=== PATIENT | female | born 1955 | race Caucasian/White ===

== ENCOUNTER → 2017-09-21 | Outpatient (CLI) | payer OTHER | END | disposition home or self-care (01) | LOC: CFH 12:38 → EDSTATUS 13:00 | PROVIDERS: ATTEND Nurse Practitioner | DX: Z13.820 Encounter for screening for osteoporosis (principal); Z12.2 Encounter for screening for malignant neoplasm of respiratory organs; M85.88 Other specified disorders of bone density and structure, other site; J47.9 Bronchiectasis, uncomplicated; N95.8 Other specified menopausal and perimenopausal disorders; Z87.891 Personal history of nicotine dependence | CPT/HCPCS: 77080; G0297 ==

== ENCOUNTER 2017-12-19 00:20 | Emergency (ER) | payer OTHER ==
[~2017-12-19] VITALS: Ht 154.9 cm; Wt 66.1 kg
[2017-12-19] MEDS ORDERED: ONDANSETRON 2MG/ML, 2ML ONE (01:35)
[2017-12-19] MEDS ORDERED: MORPHINE SULFATE 4 MG/ML, 1ML ONE (01:35)
[2017-12-19 01:57] LABS: MICROSCOPIC AUTO
[2017-12-19] MEDS ORDERED: ONDANSETRON 2MG/ML, 2ML IVPush ONE (02:00)
[2017-12-19] MEDS ORDERED: MORPHINE SULFATE 4 MG/ML, 1ML IVPush PRN (02:00)
[2017-12-19 02:02] LABS: BASOPHILS # (AUTO) 0.02 x10^3/uL (0-0.1); BASOPHILS % (AUTO) 0 % (0-1); EOSINOPHILS # (AUTO) 0.06 x10^3/uL (0-0.4); EOSINOPHILS % (AUTO) 1 % (1-7); LYMPHOCYTES # (AUTO) 0.79 x10^3/uL (1-3.4); LYMPHOCYTES % (AUTO) 6 % (22-44); MD NO; MEAN CORPUSCULAR HEMOGLOBIN 29.5 pg (27.0-34.8); MEAN CORPUSCULAR HGB CONC 33.7 g/dL (32.4-35.8); MEAN CORPUSCULAR VOLUME 87.6 fL (80-100); MONOCYTES # (AUTO) 0.84 x10^3/uL (0.2-0.8); MONOCYTES % (AUTO) 6 % (2-9); NEUTROPHILS # (AUTO) 11.57 x10^3/uL (1.8-6.8); NEUTROPHILS % (AUTO) 87 % (42-75); PLATELET COUNT 277 x10^3/uL (130-400); RED BLOOD COUNT 4.18 x10^6/uL (3.82-5.3); RED CELL DISTRIBUTION WIDTH 15.3 % (9.6-15.2)
[2017-12-19 02:05] LABS: CULTURE INDICATED? YES
[2017-12-19 02:14] LABS: ALANINE AMINOTRANSFERASE 21 U/L (12-78); ALBUMIN 3.6 g/dL (3.4-5.0); ANION GAP 10 mmol/L (5-15); CALCIUM 9.8 mg/dL (8.5-10.1); CHLORIDE 110 mmol/L (98-107)
[2017-12-19 02:15] LABS: ALKALINE PHOSPHATASE 54 U/L (45-117); BILIRUBIN,TOTAL 0.3 mg/dL (0.2-1.0); TOTAL PROTEIN 7.7 g/dL (6.4-8.2)
[2017-12-19] MEDS ORDERED: OMNIPAQUE 350 MG/ML, 100ML BOTTLE ONE (02:52)
[2017-12-19 04:48] VITALS: BP 116/68
== END 2017-12-19 04:50 | disposition home or self-care (01) ==
LOC: ED 02:11
DX: K52.9 Noninfective gastroenteritis and colitis, unspecified (principal); E78.00 Pure hypercholesterolemia, unspecified; K21.9 Gastro-esophageal reflux disease without esophagitis; F03.90 Unspecified dementia, unspecified severity, without behavioral disturbance, psychotic disturbance, mood disturbance, and anxiety; F31.9 Bipolar disorder, unspecified; Z87.891 Personal history of nicotine dependence; Z88.1 Allergy status to other antibiotic agents
CPT/HCPCS: 36415; 74177; 80053; 81001; 83690; 85025; 87086; 96374; 96375; 99285; J2405; Q9967

== ENCOUNTER 2017-12-19 17:34 | Emergency (ER) | payer OTHER ==
[~2017-12-19] VITALS: Ht 154.9 cm; Wt 66.0 kg
[2017-12-19 18:00] LABS: BASOPHILS # (AUTO) 0.02 x10^3/uL (0-0.1); BASOPHILS % (AUTO) 0 % (0-1); EOSINOPHILS # (AUTO) 0.02 x10^3/uL (0-0.4); EOSINOPHILS % (AUTO) 0 % (1-7); LYMPHOCYTES # (AUTO) 0.76 x10^3/uL (1-3.4); LYMPHOCYTES % (AUTO) 6 % (22-44); MD NO; MEAN CORPUSCULAR HEMOGLOBIN 29.8 pg (27.0-34.8); MEAN CORPUSCULAR HGB CONC 33.9 g/dL (32.4-35.8); MEAN CORPUSCULAR VOLUME 87.8 fL (80-100); MEAN PLATELET VOLUME 8.6 fL (7.4-10.4); MONOCYTES # (AUTO) 0.85 x10^3/uL (0.2-0.8); MONOCYTES % (AUTO) 7 % (2-9); NEUTROPHILS # (AUTO) 11.34 x10^3/uL (1.8-6.8); NEUTROPHILS % (AUTO) 87 % (42-75); PLATELET COUNT 249 x10^3/uL (130-400); RED BLOOD COUNT 3.79 x10^6/uL (3.82-5.3)
[2017-12-19] MEDS ORDERED: SODIUM CHLORIDE FLUSH 10ML SYR IVF ONE (18:00)
[2017-12-19] MEDS ORDERED: SODIUM CHLORIDE 0.9% 1,000ML IVBOLUS ONE (18:00)
[2017-12-19] MEDS ORDERED: PLEASE ENTER HEIGHT AND WEIGHT MC SCH (18:00)
[2017-12-19 18:08] LABS: ALBUMIN 3.4 g/dL (3.4-5.0); ANION GAP 8 mmol/L (5-15); CALCIUM 9.3 mg/dL (8.5-10.1); CHLORIDE 104 mmol/L (98-107); CREATININE 1.62 mg/dL (0.55-1.02)
[2017-12-19 18:14] LABS: MICROSCOPIC INDICATED
[2017-12-19 18:15] LABS: CULTURE INDICATED? NO
[2017-12-19] MEDS ORDERED: MORPHINE SULFATE 4 MG/ML, 1ML IVPush PRN (20:00)
[2017-12-19] MEDS ORDERED: MORPHINE SULFATE 4 MG/ML, 1ML ONE (20:16)
[2017-12-19] MEDS ORDERED: LORazepam 2 MG/ML, 1ML ONE (20:28)
[2017-12-19] MEDS ORDERED: LORazepam 2 MG/ML, 1ML IVPush STA (20:34)
[2017-12-19 21:42] VITALS: BP 106/64
== END 2017-12-19 21:45 | disposition home or self-care (01) ==
LOC: ED 18:33
DX: K52.9 Noninfective gastroenteritis and colitis, unspecified (principal); E78.00 Pure hypercholesterolemia, unspecified; K21.9 Gastro-esophageal reflux disease without esophagitis; F31.9 Bipolar disorder, unspecified; F03.90 Unspecified dementia, unspecified severity, without behavioral disturbance, psychotic disturbance, mood disturbance, and anxiety
CPT/HCPCS: 36415; 80048; 81001; 82040; 83605; 85025; 96361; 96374; 99284; J2060; J7030

== ENCOUNTER 2017-12-21 00:57 | Inpatient (IN) | payer OTHER ==
[~2017-12-21] VITALS: Ht 154.9 cm; Wt 67.5 kg
[2017-12-21] MEDS ORDERED: SODIUM CHLORIDE 0.9% 1,000ML IVBOLUS ONE (02:00)
[2017-12-21] MEDS ORDERED: MORPHINE SULFATE 4 MG/ML, 1ML IVPush PRN (02:00)
[2017-12-21] MEDS ORDERED: ONDANSETRON 2MG/ML, 2ML IVPush ONE (02:00)
[2017-12-21] MEDS ORDERED: ONDANSETRON 2MG/ML, 2ML ONE (02:08)
[2017-12-21 02:11] LABS: BASOPHILS # (AUTO) 0.01 x10^3/uL (0-0.1); BASOPHILS % (AUTO) 0 % (0-1); EOSINOPHILS # (AUTO) 0.05 x10^3/uL (0-0.4); EOSINOPHILS % (AUTO) 1 % (1-7); LYMPHOCYTES # (AUTO) 0.43 x10^3/uL (1-3.4); LYMPHOCYTES % (AUTO) 4 % (22-44); MD NO; MEAN CORPUSCULAR HEMOGLOBIN 29.7 pg (27.0-34.8); MEAN CORPUSCULAR VOLUME 87.6 fL (80-100); MEAN PLATELET VOLUME 8.8 fL (7.4-10.4); MONOCYTES # (AUTO) 0.64 x10^3/uL (0.2-0.8); MONOCYTES % (AUTO) 7 % (2-9); NEUTROPHILS # (AUTO) 8.58 x10^3/uL (1.8-6.8); NEUTROPHILS % (AUTO) 88 % (42-75); PLATELET COUNT 250 x10^3/uL (130-400); RED BLOOD COUNT 3.61 x10^6/uL (3.82-5.3); RED CELL DISTRIBUTION WIDTH 15.1 % (9.6-15.2)
[2017-12-21 02:20] LABS: ALANINE AMINOTRANSFERASE 16 U/L (12-78); ALBUMIN 2.7 g/dL (3.4-5.0); ANION GAP 10 mmol/L (5-15); CALCIUM 9.1 mg/dL (8.5-10.1); CHLORIDE 104 mmol/L (98-107); CREATININE 1.75 mg/dL (0.55-1.02)
[2017-12-21 02:25] LABS: ALKALINE PHOSPHATASE 50 U/L (45-117); BILIRUBIN,TOTAL 0.3 mg/dL (0.2-1.0); TOTAL PROTEIN 6.9 g/dL (6.4-8.2); TROPONIN I < 0.015 ng/mL (0.000-0.045)
[2017-12-21 02:43] LABS: CULTURE INDICATED? YES; MICROSCOPIC INDICATED
[2017-12-21] MEDS ORDERED: ACETAMINOPHEN 500 MG TABLET ONE (03:55)
[2017-12-21] MEDS ORDERED: ACETAMINOPHEN 500 MG TABLET PO ONE (04:00)
[2017-12-21] MEDS ORDERED: CEFTRIAXONE PMX 1GM/50ML 50 ML ONE (04:18)
[2017-12-21] MEDS ORDERED: CEFTRIAXONE 1,000 MG IM ONE (04:30)
[2017-12-21] MEDS ORDERED: DONE10TA56 PO (04:34)
[2017-12-21] MEDS ORDERED: DIVA500T2 PO (04:34)
[2017-12-21] MEDS ORDERED: OMEP40CA6 PO (04:34)
[2017-12-21] MEDS ORDERED: TIZA4TAB PO (04:34)
[2017-12-21] MEDS ORDERED: MELO7.5T31 PO (04:34)
[2017-12-21] MEDS ORDERED: ATOR40TA PO (04:34)
[2017-12-21] MEDS ORDERED: MEMA10TA PO (04:34)
[2017-12-21] MEDS ORDERED: ESCI10TA10 PO (04:34)
[2017-12-21] MEDS: SODIUM CHLORIDE 0.9% 1,000 ML IV SCH ×2 (05:12→11:01)
[2017-12-21 05:27] VITALS: BP 93/60
[2017-12-21] MEDS ORDERED: POLYETHYLENE GLYCOL 17 GM PACKET PO PRN (05:30)
[2017-12-21] MEDS ORDERED: BISACODYL 10 MG SUPP PR PRN (05:30)
[2017-12-21] MEDS ORDERED: LABETALOL 5MG/ML, 20ML IVPush PRN (05:30)
[2017-12-21] MEDS ORDERED: PROMETHAZINE 25 MG/ML, 1ML IM PRN (05:30)
[2017-12-21] MEDS ORDERED: ACETAMINOPHEN 325 MG TABLET PO PRN (05:30)
[2017-12-21] MEDS ORDERED: hydrALAzine 20 MG/ML, 1ML IVPush PRN (05:30)
[2017-12-21] MEDS ORDERED: morphine SULFATE 10 MG/ML, 1ML IVPush PRN (05:30)
[2017-12-21] MEDS ORDERED: GABAPENTIN 300 MG CAPSULE PO PRN (05:30)
[2017-12-21] MEDS ORDERED: ONDANSETRON 2MG/ML, 2ML IVPush PRN (05:30)
[2017-12-21] MEDS ORDERED: CEFTRIAXONE 1,000 MG in SODIUM CHLORIDE 0.9% 50 ML IV ONE (05:30)
[2017-12-21] MEDS ORDERED: DOCUSATE 100 MG CAPSULE PO PRN (05:30)
[2017-12-21 05:34] VITALS: BP 93/60
[2017-12-21] MEDS: HYDROcodone/APAP 5/325 TABLET PO PRN ×3 (06:10→16:27)
[2017-12-21] MEDS: HEPARIN 5,000 UNITS/ML, 1ML SQ SCH ×3 (06:10→21:07)
[2017-12-21 06:25] VITALS: BP 94/64
[2017-12-21 06:34] LABS: FREE T4 (FREE THYROXINE) 1.15 ng/dL (0.76-1.46); THYROID STIMULATING HORMONE 1.42 mIU/L (0.358-3.740)
[2017-12-21 06:41] LABS: HEMOGLOBIN A1C 6.2 % (4.2-6.3)
[2017-12-21] MEDS: TEMPLATE NON-FORMULARY MED. (Escitalopram Oxalate** (Lexapro**) 10 MG) HOMEMEDPO SCH (09:00)
[2017-12-21] MEDS: OMEPRAZOLE 20 MG CAPSULE.DR PO SCH (11:01)
[2017-12-21] MEDS: MEMANTINE 10MG TABLET PO SCH ×2 (11:01→21:06)
[2017-12-21 13:47] VITALS: BP 97/66
[2017-12-21] MEDS: ONDANSETRON ODT 4 MG PO PRN (16:27)
[2017-12-21 16:33] LABS: CLOSTRIDIUM DIFFICILE TOXIN NEGATIVE (Negative)
[2017-12-21] MEDS: metroNIDAZOLE 500 MG TABLET PO SCH ×2 (16:33→21:06)
[2017-12-21 16:36] LABS: CLOSTRIDIUM DIFFICILE ANTIGEN POSITIVE
[2017-12-21 19:30] VITALS: BP 108/71
[2017-12-21] MEDS: DONEPEZIL 10 MG TABLET PO SCH (21:06)
[2017-12-21] MEDS: DIVALPROEX 500 MG TABLET.DR PO SCH (21:06)
[2017-12-21] MEDS: ATORVASTATIN 40 MG TABLET PO SCH (21:06)
[2017-12-22 00:33] VITALS: BP 109/68
[2017-12-22] MEDS: CEFTRIAXONE PMX 2GM/50ML 50 ML IVPB SCH (01:42)
[2017-12-22] MEDS ORDERED: CEFTAZIDIME PMX 2 GM/50ML 50 ML IVPB SCH (02:00)
[2017-12-22] MEDS ORDERED: CEFTRIAXONE 2 GM in SODIUM CHLORIDE 0.9% 50 ML IV SCH (02:00)
[2017-12-22] MEDS: ONDANSETRON ODT 4 MG PO PRN ×3 (03:02→23:17)
[2017-12-22 05:37] LABS: CHLORIDE 110 mmol/L (98-107)
[2017-12-22] MEDS: metroNIDAZOLE 500 MG TABLET PO SCH ×3 (05:49→20:40)
[2017-12-22] MEDS: HEPARIN 5,000 UNITS/ML, 1ML SQ SCH ×3 (05:50→20:41)
[2017-12-22 05:59] LABS: BASOPHILS % (AUTO) 0 % (0-1); EOSINOPHILS % (AUTO) 1 % (1-7); LYMPHOCYTES # (AUTO) 0.68 x10^3/uL (1-3.4); LYMPHOCYTES % (AUTO) 6 % (22-44); MD NO; MEAN CORPUSCULAR HEMOGLOBIN 29.9 pg (27.0-34.8); MEAN CORPUSCULAR HGB CONC 33.9 g/dL (32.4-35.8); MEAN CORPUSCULAR VOLUME 88.2 fL (80-100); MONOCYTES # (AUTO) 0.83 x10^3/uL (0.2-0.8); MONOCYTES % (AUTO) 7 % (2-9); NEUTROPHILS # (AUTO) 10.49 x10^3/uL (1.8-6.8); NEUTROPHILS % (AUTO) 87 % (42-75); PLATELET COUNT 219 x10^3/uL (130-400); RED CELL DISTRIBUTION WIDTH 15.4 % (9.6-15.2)
[2017-12-22 06:03] LABS: ALANINE AMINOTRANSFERASE 14 U/L (12-78); ALBUMIN 2.3 g/dL (3.4-5.0); ALKALINE PHOSPHATASE 55 U/L (45-117); ANION GAP 11 mmol/L (5-15); BILIRUBIN,TOTAL 0.2 mg/dL (0.2-1.0); CHOL/HDL RATIO 13.4; CHOLESTEROL, TOTAL 94 mg/dL (140-239); CREATININE 1.25 mg/dL (0.55-1.02); HDL CHOL % 7 % (28-40); HDL CHOLESTEROL (DIRECT) 7 mg/dL (40-60); LDL CHOLESTEROL,CALCULATED 32 mg/dL (54-169); LDL/HDL RATIO 4.6 (0.5-3.0); TOTAL PROTEIN 6.6 g/dL (6.4-8.2); TRIGLYCERIDES 274 mg/dL (50-200); VLDL CHOLESTEROL 55 mg/dL (0-25)
[2017-12-22 07:55] VITALS: BP 105/71
[2017-12-22] MEDS: TEMPLATE NON-FORMULARY MED. (Escitalopram Oxalate** (Lexapro**) 10 MG) HOMEMEDPO SCH (09:00)
[2017-12-22] MEDS: OMEPRAZOLE 20 MG CAPSULE.DR PO SCH (10:21)
[2017-12-22] MEDS: MEMANTINE 10MG TABLET PO SCH ×2 (10:21→20:40)
[2017-12-22 12:02] VITALS: BP 101/68
[2017-12-22] MEDS ORDERED: FENO150C4 PO (13:39)
[2017-12-22] MEDS: SODIUM CHLORIDE 0.45% 1,000 ML IV SCH (18:14)
[2017-12-22 19:57] VITALS: BP 104/68
[2017-12-22] MEDS: DONEPEZIL 10 MG TABLET PO SCH (20:40)
[2017-12-22] MEDS: DIVALPROEX 500 MG TABLET.DR PO SCH (20:40)
[2017-12-22] MEDS: ATORVASTATIN 40 MG TABLET PO SCH (20:40)
[2017-12-22] MEDS ORDERED: CITALOPRAM 20 MG TABLET PO SCH (21:00)
[2017-12-23] MEDS: CEFTRIAXONE PMX 2GM/50ML 50 ML IVPB SCH (02:14)
[2017-12-23 02:41] VITALS: BP 117/77
[2017-12-23 05:23] LABS: BASOPHILS # (AUTO) 0.05 x10^3/uL (0-0.1); BASOPHILS % (AUTO) 0 % (0-1); EOSINOPHILS # (AUTO) 0.17 x10^3/uL (0-0.4); EOSINOPHILS % (AUTO) 2 % (1-7); LYMPHOCYTES # (AUTO) 0.83 x10^3/uL (1-3.4); LYMPHOCYTES % (AUTO) 7 % (22-44); MD NO; MEAN CORPUSCULAR HEMOGLOBIN 29.4 pg (27.0-34.8); MEAN CORPUSCULAR HGB CONC 33.2 g/dL (32.4-35.8); MEAN CORPUSCULAR VOLUME 88.6 fL (80-100); MEAN PLATELET VOLUME 9.4 fL (7.4-10.4); MONOCYTES % (AUTO) 7 % (2-9); NEUTROPHILS # (AUTO) 9.44 x10^3/uL (1.8-6.8); NEUTROPHILS % (AUTO) 84 % (42-75); PLATELET COUNT 258 x10^3/uL (130-400); RED BLOOD COUNT 3.28 x10^6/uL (3.82-5.3); RED CELL DISTRIBUTION WIDTH 15.7 % (9.6-15.2)
[2017-12-23 05:34] LABS: ALBUMIN 2.1 g/dL (3.4-5.0); ANION GAP 11 mmol/L (5-15); CALCIUM 8.9 mg/dL (8.5-10.1); CHLORIDE 108 mmol/L (98-107)
[2017-12-23 05:39] LABS: ALANINE AMINOTRANSFERASE 12 U/L (12-78); ALKALINE PHOSPHATASE 59 U/L (45-117); BILIRUBIN,TOTAL 0.1 mg/dL (0.2-1.0); CREATININE 1.16 mg/dL (0.55-1.02); TOTAL PROTEIN 6.4 g/dL (6.4-8.2)
[2017-12-23] MEDS: HEPARIN 5,000 UNITS/ML, 1ML SQ SCH ×3 (05:54→21:10)
[2017-12-23] MEDS: metroNIDAZOLE 500 MG TABLET PO SCH ×3 (05:54→21:11)
[2017-12-23 07:01] VITALS: BP 91/59
[2017-12-23] MEDS: OMEPRAZOLE 20 MG CAPSULE.DR PO SCH (08:03)
[2017-12-23] MEDS: MEMANTINE 10MG TABLET PO SCH ×2 (08:03→21:11)
[2017-12-23] MEDS: ONDANSETRON ODT 4 MG PO PRN ×3 (10:02→20:30)
[2017-12-23] MEDS: HYDROcodone/APAP 5/325 TABLET PO PRN ×2 (10:02→15:00)
[2017-12-23 12:22] VITALS: BP 111/73
[2017-12-23] MEDS: SODIUM CHLORIDE 0.45% 1,000 ML IV SCH (15:04)
[2017-12-23 20:32] VITALS: BP 111/74
[2017-12-23] MEDS ORDERED: HEMORRHOIDAL OINT, 28 GM (PREP H) RC PRN (21:00)
[2017-12-23] MEDS: DIVALPROEX 500 MG TABLET.DR PO SCH (21:11)
[2017-12-23] MEDS: ATORVASTATIN 40 MG TABLET PO SCH (21:11)
[2017-12-23] MEDS: CITALOPRAM 10 MG TABLET PO SCH (21:11)
[2017-12-23] MEDS: DONEPEZIL 10 MG TABLET PO SCH (21:11)
[2017-12-24 01:52] VITALS: BP 110/73
[2017-12-24] MEDS: CEFTRIAXONE PMX 2GM/50ML 50 ML IVPB SCH (02:07)
[2017-12-24 05:15] LABS: MEAN CORPUSCULAR HEMOGLOBIN 28.7 pg (27.0-34.8); MEAN CORPUSCULAR HGB CONC 33.1 g/dL (32.4-35.8); MEAN CORPUSCULAR VOLUME 86.7 fL (80-100); MEAN PLATELET VOLUME 9.1 fL (7.4-10.4); PLATELET COUNT 272 x10^3/uL (130-400); RED CELL DISTRIBUTION WIDTH 15.8 % (9.6-15.2)
[2017-12-24] MEDS: metroNIDAZOLE 500 MG TABLET PO SCH ×3 (05:17→20:19)
[2017-12-24] MEDS: HEPARIN 5,000 UNITS/ML, 1ML SQ SCH ×3 (05:18→20:19)
[2017-12-24 05:30] LABS: ALBUMIN 2.1 g/dL (3.4-5.0); CALCIUM 9.1 mg/dL (8.5-10.1); CHLORIDE 112 mmol/L (98-107)
[2017-12-24 05:35] LABS: ALANINE AMINOTRANSFERASE 13 U/L (12-78); ALKALINE PHOSPHATASE 58 U/L (45-117); ANION GAP 10 mmol/L (5-15); BILIRUBIN,TOTAL 0.1 mg/dL (0.2-1.0); CREATININE 1.02 mg/dL (0.55-1.02); TOTAL PROTEIN 6.6 g/dL (6.4-8.2)
[2017-12-24 05:39] LABS: BASOPHILS # (AUTO) 0.04 x10^3/uL (0-0.1); BASOPHILS % (AUTO) 0 % (0-1); EOSINOPHILS # (AUTO) 0.16 x10^3/uL (0-0.4); EOSINOPHILS % (AUTO) 1 % (1-7); LYMPHOCYTES # (AUTO) 0.87 x10^3/uL (1-3.4); LYMPHOCYTES % (AUTO) 8 % (22-44); MD SCAN; MONOCYTES # (AUTO) 0.46 x10^3/uL (0.2-0.8); MONOCYTES % (AUTO) 4 % (2-9); NEUTROPHILS # (AUTO) 9.73 x10^3/uL (1.8-6.8); NEUTROPHILS % (AUTO) 87 % (42-75)
[2017-12-24] MEDS: OMEPRAZOLE 20 MG CAPSULE.DR PO SCH (07:20)
[2017-12-24] MEDS: MEMANTINE 10MG TABLET PO SCH ×2 (07:20→20:18)
[2017-12-24] MEDS: SODIUM CHLORIDE 0.45% 1,000 ML IV SCH (07:22)
[2017-12-24 08:18] VITALS: BP 111/74
[2017-12-24 12:58] VITALS: BP 112/72
[2017-12-24] MEDS: OXYBUTYNIN CHLORIDE 5 MG TABLET PO SCH ×2 (16:14→20:18)
[2017-12-24 20:13] VITALS: BP 112/71
[2017-12-24] MEDS: DONEPEZIL 10 MG TABLET PO SCH (20:17)
[2017-12-24] MEDS: DIVALPROEX 500 MG TABLET.DR PO SCH (20:17)
[2017-12-24] MEDS: CITALOPRAM 10 MG TABLET PO SCH (20:17)
[2017-12-24] MEDS: ONDANSETRON ODT 4 MG PO PRN (20:17)
[2017-12-24] MEDS: ATORVASTATIN 40 MG TABLET PO SCH (20:17)
[2017-12-24] MEDS: MELATONIN 3 MG TABLET PO PRN (22:57)
[2017-12-25 00:32] VITALS: BP 106/73
[2017-12-25] MEDS: CEFTRIAXONE PMX 2GM/50ML 50 ML IVPB SCH (02:28)
[2017-12-25 04:49] LABS: ANION GAP 7 mmol/L (5-15); CHLORIDE 112 mmol/L (98-107); CREATININE 0.97 mg/dL (0.55-1.02)
[2017-12-25 05:44] LABS: MEAN CORPUSCULAR HEMOGLOBIN 30.1 pg (27.0-34.8); MEAN CORPUSCULAR HGB CONC 34.1 g/dL (32.4-35.8); MEAN CORPUSCULAR VOLUME 88.4 fL (80-100); MEAN PLATELET VOLUME 8.9 fL (7.4-10.4); PLATELET COUNT 360 x10^3/uL (130-400); RED BLOOD COUNT 3.29 x10^6/uL (3.82-5.3); RED CELL DISTRIBUTION WIDTH 15.9 % (9.6-15.2)
[2017-12-25 05:46] LABS: MD YES
[2017-12-25 05:48] LABS: BASOS#(MANUAL) 0.21 x10^3/uL (0-0.1); BASOS% (MANUAL) 2 % (0-1); EOS#(MANUAL) 0.21 x10^3/uL (0.0-0.4); EOS% (MANUAL) 2 % (1-7); LYMPH#(MANUAL) 1.35 x10^3/uL (1-3.4); LYMPHS% (MANUAL) 13 % (22-44); METAMYELOCYTES# (MANUAL) 0.31 x10^3/uL (0-0); METAMYELOCYTES% (MANUAL) 3 % (0-1); MONOS#(MANUAL) 0.73 x10^3/uL (0.3-2.7); MONOS% (MANUAL) 7 % (2-9); SEG#(MANUAL) 7.59 x10^3/uL (1.8-6.8); SEGS% (MANUAL) 73 % (42-75)
[2017-12-25 05:50] LABS: <PLATELET ESTIMATE> ADEQUATE; <PLT MORPHOLOGY> NORMAL PLT MORPH; ANISOCYTOSIS 1+
[2017-12-25] MEDS: metroNIDAZOLE 500 MG TABLET PO SCH ×3 (06:17→21:32)
[2017-12-25] MEDS: HEPARIN 5,000 UNITS/ML, 1ML SQ SCH ×3 (06:18→21:31)
[2017-12-25] MEDS: MEMANTINE 10MG TABLET PO SCH ×2 (09:45→21:33)
[2017-12-25] MEDS: OXYBUTYNIN CHLORIDE 5 MG TABLET PO SCH ×2 (09:45→21:33)
[2017-12-25] MEDS: OMEPRAZOLE 20 MG CAPSULE.DR PO SCH (09:45)
[2017-12-25 09:54] VITALS: BP 107/73
[2017-12-25 14:05] VITALS: BP 108/73
[2017-12-25] MEDS: VANCOMYCIN 50 MG/ML ORAL SUSP PO SCH ×2 (14:23→21:33)
[2017-12-25] MEDS ORDERED: PHENAZOPYRIDINE 200 MG TABLET PO PRN (16:00)
[2017-12-25 18:32] VITALS: BP 123/78
[2017-12-25] MEDS: ATORVASTATIN 40 MG TABLET PO SCH (21:31)
[2017-12-25] MEDS: DONEPEZIL 10 MG TABLET PO SCH (21:32)
[2017-12-25] MEDS: CITALOPRAM 10 MG TABLET PO SCH (21:32)
[2017-12-25] MEDS: DIVALPROEX 500 MG TABLET.DR PO SCH (21:33)
[2017-12-26 01:28] VITALS: BP 114/77
[2017-12-26] MEDS: MELATONIN 3 MG TABLET PO PRN (01:33)
[2017-12-26] MEDS: CEFTRIAXONE PMX 2GM/50ML 50 ML IVPB SCH (02:15)
[2017-12-26] MEDS: VANCOMYCIN 50 MG/ML ORAL SUSP PO SCH ×4 (02:16→22:30)
[2017-12-26 04:37] LABS: BASOPHILS # (AUTO) 0.07 x10^3/uL (0-0.1); BASOPHILS % (AUTO) 1 % (0-1); EOSINOPHILS # (AUTO) 0.12 x10^3/uL (0-0.4); EOSINOPHILS % (AUTO) 1 % (1-7); LYMPHOCYTES # (AUTO) 1.28 x10^3/uL (1-3.4); LYMPHOCYTES % (AUTO) 14 % (22-44); MD NO; MEAN CORPUSCULAR HEMOGLOBIN 29.6 pg (27.0-34.8); MEAN CORPUSCULAR HGB CONC 33.9 g/dL (32.4-35.8); MEAN CORPUSCULAR VOLUME 87.4 fL (80-100); MEAN PLATELET VOLUME 8.7 fL (7.4-10.4); MONOCYTES # (AUTO) 0.89 x10^3/uL (0.2-0.8); MONOCYTES % (AUTO) 9 % (2-9); NEUTROPHILS # (AUTO) 7.15 x10^3/uL (1.8-6.8); NEUTROPHILS % (AUTO) 75 % (42-75); PLATELET COUNT 379 x10^3/uL (130-400); RED BLOOD COUNT 3.52 x10^6/uL (3.82-5.3); RED CELL DISTRIBUTION WIDTH 16.2 % (9.6-15.2)
[2017-12-26 04:47] LABS: ALBUMIN 2.4 g/dL (3.4-5.0); ANION GAP 7 mmol/L (5-15); CALCIUM 9.4 mg/dL (8.5-10.1); CHLORIDE 109 mmol/L (98-107)
[2017-12-26 04:50] LABS: ALANINE AMINOTRANSFERASE 20 U/L (12-78); ALKALINE PHOSPHATASE 58 U/L (45-117); BILIRUBIN,TOTAL 0.1 mg/dL (0.2-1.0); CREATININE 0.94 mg/dL (0.55-1.02); TOTAL PROTEIN 6.9 g/dL (6.4-8.2)
[2017-12-26] MEDS: HEPARIN 5,000 UNITS/ML, 1ML SQ SCH ×3 (05:40→22:39)
[2017-12-26] MEDS: metroNIDAZOLE 500 MG TABLET PO SCH ×3 (05:41→22:00)
[2017-12-26 07:40] VITALS: BP 123/81
[2017-12-26] MEDS: OMEPRAZOLE 20 MG CAPSULE.DR PO SCH (08:42)
[2017-12-26] MEDS: MEMANTINE 10MG TABLET PO SCH ×2 (08:42→22:38)
[2017-12-26] MEDS: OXYBUTYNIN CHLORIDE 5 MG TABLET PO SCH ×2 (08:43→22:39)
[2017-12-26 13:23] VITALS: BP 115/80
[2017-12-26 19:59] VITALS: BP 124/84
[2017-12-26] MEDS: ATORVASTATIN 40 MG TABLET PO SCH (22:38)
[2017-12-26] MEDS: CITALOPRAM 10 MG TABLET PO SCH (22:38)
[2017-12-26] MEDS: DONEPEZIL 10 MG TABLET PO SCH (22:39)
[2017-12-26] MEDS: DIVALPROEX 500 MG TABLET.DR PO SCH (22:39)
[2017-12-27 01:12] VITALS: BP 121/80
[2017-12-27] MEDS: CEFTRIAXONE PMX 2GM/50ML 50 ML IVPB SCH (02:31)
[2017-12-27] MEDS: VANCOMYCIN 50 MG/ML ORAL SUSP PO SCH ×2 (04:11→10:12)
[2017-12-27] MEDS: metroNIDAZOLE 500 MG TABLET PO SCH (05:45)
[2017-12-27] MEDS: HEPARIN 5,000 UNITS/ML, 1ML SQ SCH (05:46)
[2017-12-27 07:18] VITALS: BP 119/82
[2017-12-27] MEDS ORDERED: VANC125C2 PO (09:55)
[2017-12-27] MEDS: OXYBUTYNIN CHLORIDE 5 MG TABLET PO SCH (10:12)
[2017-12-27] MEDS: MEMANTINE 10MG TABLET PO SCH (10:12)
[2017-12-27] MEDS: HYDROcodone/APAP 5/325 TABLET PO PRN (10:12)
[2017-12-27] MEDS: OMEPRAZOLE 20 MG CAPSULE.DR PO SCH (10:12)
== END 2017-12-27 10:40 | disposition home or self-care (01) | DRG 871 ==
LOC: ED 02:43 → EDIP 04:09 → 3NW 05:11
PROVIDERS: ADMIT Internal Medicine; ATTEND Internal Medicine
PROC: 5A09357 Assistance with Respiratory Ventilation, Less than 24 Consecutive Hours, Continuous Positive Airway Pressure (ICD-10-PCS; principal; 2017-12-23)
DX: A41.9 Sepsis, unspecified organism (principal); N17.0 Acute kidney failure with tubular necrosis; E44.0 Moderate protein-calorie malnutrition; N10 Acute pyelonephritis; K80.20 Calculus of gallbladder without cholecystitis without obstruction; K52.9 Noninfective gastroenteritis and colitis, unspecified; N18.3 Chronic kidney disease, stage 3 (moderate); E78.5 Hyperlipidemia, unspecified; D64.9 Anemia, unspecified; K59.00 Constipation, unspecified; E78.00 Pure hypercholesterolemia, unspecified; E86.0 Dehydration; F31.9 Bipolar disorder, unspecified; I51.7 Cardiomegaly; N20.0 Calculus of kidney; N32.89 Other specified disorders of bladder; R32 Unspecified urinary incontinence; K21.9 Gastro-esophageal reflux disease without esophagitis; F03.90 Unspecified dementia, unspecified severity, without behavioral disturbance, psychotic disturbance, mood disturbance, and anxiety; G47.33 Obstructive sleep apnea (adult) (pediatric); N28.1 Cyst of kidney, acquired; R00.0 Tachycardia, unspecified; Z68.28 Body mass index [BMI] 28.0-28.9, adult; Z80.0 Family history of malignant neoplasm of digestive organs; Z82.0 Family history of epilepsy and other diseases of the nervous system; Z87.891 Personal history of nicotine dependence
CPT/HCPCS: 36415; 71045; 74018; 76700; 76856; 80048; 80053; 80061; 81001; 83036; 83605; 83690; 83735; 84100; 84439; 84443; 84484; 85025; 87040; 87046; 87086; 87324; 87493; 87798; 89055; 93005; 99285; G0378; J0696; J1644; J2405; J3370; Q0162; J7030

== ENCOUNTER 2017-12-27 10:42 | Emergency (ER) | payer OTHER ==
[~2017-12-27] VITALS: Ht 154.9 cm; Wt 67.3 kg
[~2017-12-27 10:42] MED LIST: ATOR40TA PO; DIVA500T2 PO; DONE10TA56 PO; ESCI10TA10 PO; FENO150C4 PO; MELO7.5T31 PO; MEMA10TA PO; OMEP40CA6 PO; TIZA4TAB PO; VANC125C2 PO
[2017-12-27 11:43] LABS: BASOPHILS # (AUTO) 0.02 x10^3/uL (0-0.1); BASOPHILS % (AUTO) 0 % (0-1); EOSINOPHILS # (AUTO) 0.06 x10^3/uL (0-0.4); EOSINOPHILS % (AUTO) 1 % (1-7); LYMPHOCYTES # (AUTO) 1.06 x10^3/uL (1-3.4); LYMPHOCYTES % (AUTO) 11 % (22-44); MD NO; MEAN CORPUSCULAR HGB CONC 33.8 g/dL (32.4-35.8); MEAN CORPUSCULAR VOLUME 85.9 fL (80-100); MEAN PLATELET VOLUME 8.1 fL (7.4-10.4); MONOCYTES % (AUTO) 8 % (2-9); NEUTROPHILS # (AUTO) 7.65 x10^3/uL (1.8-6.8); NEUTROPHILS % (AUTO) 80 % (42-75); PLATELET COUNT 430 x10^3/uL (130-400); RED BLOOD COUNT 3.66 x10^6/uL (3.82-5.3); RED CELL DISTRIBUTION WIDTH 15.6 % (9.6-15.2)
[2017-12-27 11:57] LABS: ALBUMIN 2.8 g/dL (3.4-5.0); ANION GAP 7 mmol/L (5-15); CALCIUM 9.6 mg/dL (8.5-10.1); CHLORIDE 105 mmol/L (98-107); CREATININE 1.05 mg/dL (0.55-1.02)
[2017-12-27 12:01] LABS: CULTURE INDICATED? YES; MICROSCOPIC INDICATED
[2017-12-27 12:28] LABS: ALANINE AMINOTRANSFERASE 29 U/L (12-78); ALKALINE PHOSPHATASE 58 U/L (45-117); BILIRUBIN,TOTAL 0.1 mg/dL (0.2-1.0); TOTAL PROTEIN 7.4 g/dL (6.4-8.2)
[2017-12-27] MEDS ORDERED: SODIUM CHLORIDE FLUSH 10ML SYR IVF ONE (13:00)
[2017-12-27 14:45] VITALS: BP 137/65
== END 2017-12-27 15:37 | disposition home or self-care (01) ==
LOC: ED 13:02
DX: A04.72 Enterocolitis due to Clostridium difficile, not specified as recurrent (principal); A09 Infectious gastroenteritis and colitis, unspecified; D63.8 Anemia in other chronic diseases classified elsewhere; F31.9 Bipolar disorder, unspecified; Z86.19 Personal history of other infectious and parasitic diseases
CPT/HCPCS: 36415; 80053; 81001; 83605; 85025; 87086; 87106; 99284

== ENCOUNTER 2018-01-18 15:50 | Inpatient (IN) | payer OTHER ==
[~2018-01-18] VITALS: Ht 156.2 cm; Wt 63.3 kg
[2018-01-18] MEDS ORDERED: METO25TA35 PO (16:45)
[2018-01-18] MEDS ORDERED: PALI117D IM (16:45)
[2018-01-18] MEDS ORDERED: TAMS-11 PO (16:45)
[2018-01-18] MEDS ORDERED: PANT20TA3 PO (16:45)
[2018-01-18] MEDS ORDERED: ACET325T14 PO (16:45)
[2018-01-18] MEDS ORDERED: DIVA500T4 PO (16:45)
[2018-01-18] MEDS ORDERED: LORA-445 PO (16:45)
[2018-01-18] MEDS ORDERED: PLEASE ENTER HEIGHT AND WEIGHT MC SCH (19:00)
[2018-01-18 19:56] VITALS: BP 100/68
[2018-01-18 20:24] LABS: BASOPHILS # (AUTO) 0.04 x10^3/uL (0-0.1); BASOPHILS % (AUTO) 1 % (0-1); EOSINOPHILS # (AUTO) 0.27 x10^3/uL (0-0.4); EOSINOPHILS % (AUTO) 4 % (1-7); LYMPHOCYTES % (AUTO) 19 % (22-44); MD NO; MEAN CORPUSCULAR HEMOGLOBIN 29.3 pg (27.0-34.8); MEAN CORPUSCULAR HGB CONC 33.3 g/dL (32.4-35.8); MEAN CORPUSCULAR VOLUME 87.8 fL (80-100); MEAN PLATELET VOLUME 9.6 fL (7.4-10.4); MONOCYTES # (AUTO) 0.67 x10^3/uL (0.2-0.8); MONOCYTES % (AUTO) 9 % (2-9); NEUTROPHILS # (AUTO) 4.85 x10^3/uL (1.8-6.8); NEUTROPHILS % (AUTO) 67 % (42-75); PLATELET COUNT 315 x10^3/uL (130-400); RED BLOOD COUNT 3.95 x10^6/uL (3.82-5.3); RED CELL DISTRIBUTION WIDTH 17.3 % (9.6-15.2)
[2018-01-18 20:34] LABS: ANION GAP 8 mmol/L (5-15); CALCIUM 9.3 mg/dL (8.5-10.1); CHLORIDE 105 mmol/L (98-107); CHOLESTEROL, TOTAL 164 mg/dL (140-239); CREATININE 1.43 mg/dL (0.55-1.02); TRIGLYCERIDES 555 mg/dL (50-200)
[2018-01-18] MEDS: INSULIN LISPRO 100 UNITS/ML, PEN SQ-INSULIN SCH (20:49)
[2018-01-18 21:03] LABS: CHOL/HDL RATIO 20.5; FREE T4 (FREE THYROXINE) 1.21 ng/dL (0.76-1.46); HDL CHOL % 5 % (28-40); HDL CHOLESTEROL (DIRECT) 8 mg/dL (40-60)
[2018-01-18] MEDS: ATORVASTATIN 40 MG TABLET PO SCH (21:05)
[2018-01-18] MEDS: DIVALPROEX 500 MG TAB.ER.24H PO SCH (21:05)
[2018-01-18] MEDS: PANTOPRAZOLE 20MG TABLET PO SCH (21:05)
[2018-01-18 21:20] VITALS: BP 100/68
[2018-01-19] MEDS: ACETAMINOPHEN 325 MG TABLET PO PRN (01:42)
[2018-01-19] MEDS: METOPROLOL TARTRATE 50 MG TABLET PO SCH ×2 (06:00→18:15)
[2018-01-19] MEDS: INSULIN LISPRO 100 UNITS/ML, PEN SQ-INSULIN SCH ×4 (07:00→21:00)
[2018-01-19 07:30] VITALS: BP 92/60
[2018-01-19] MEDS: FENOFIBRATE 145 MG TABLET PO SCH (08:40)
[2018-01-19] MEDS: TAMSULOSIN 0.4 MG CAP.ER.24H PO SCH (08:40)
[2018-01-19] MEDS: PANTOPRAZOLE 20MG TABLET PO SCH ×2 (08:40→20:10)
[2018-01-19] MEDS: LORazepam 0.5MG TABLET PO PRN ×2 (09:34→20:15)
[2018-01-19 19:11] VITALS: BP 92/66
[2018-01-19] MEDS: ATORVASTATIN 40 MG TABLET PO SCH (20:10)
[2018-01-19] MEDS: DIVALPROEX 500 MG TAB.ER.24H PO SCH (20:10)
[2018-01-19] MEDS: HALOPERIDOL 5 MG TABLET PO PRN (20:25)
[2018-01-20] MEDS: LORazepam 0.5MG TABLET PO PRN ×2 (01:45→16:57)
[2018-01-20 01:52] VITALS: BP 92/64
[2018-01-20] MEDS: HALOPERIDOL 5 MG TABLET PO PRN ×2 (02:33→20:42)
[2018-01-20] MEDS: METOPROLOL TARTRATE 50 MG TABLET PO SCH (05:30)
[2018-01-20] MEDS: INSULIN LISPRO 100 UNITS/ML, PEN SQ-INSULIN SCH ×4 (07:00→21:00)
[2018-01-20 07:48] VITALS: BP 123/80
[2018-01-20] MEDS: TAMSULOSIN 0.4 MG CAP.ER.24H PO SCH (08:25)
[2018-01-20] MEDS: PANTOPRAZOLE 20MG TABLET PO SCH ×2 (08:25→20:32)
[2018-01-20] MEDS: FENOFIBRATE 145 MG TABLET PO SCH (08:26)
[2018-01-20] MEDS ORDERED: METOPROLOL TARTRATE 25 MG TABLET PO ONE (08:30)
[2018-01-20] MEDS: ACETAMINOPHEN 325 MG TABLET PO PRN (16:57)
[2018-01-20 18:00] VITALS: BP 96/63
[2018-01-20] MEDS: METOPROLOL TARTRATE 25 MG TABLET PO SCH (18:00)
[2018-01-20 19:19] VITALS: BP 101/68
[2018-01-20] MEDS: ATORVASTATIN 40 MG TABLET PO SCH (20:32)
[2018-01-20] MEDS: DIVALPROEX 500 MG TAB.ER.24H PO SCH (20:32)
[2018-01-21] MEDS: LORazepam 0.5MG TABLET PO PRN ×2 (00:04→21:01)
[2018-01-21] MEDS: INSULIN LISPRO 100 UNITS/ML, PEN SQ-INSULIN SCH ×4 (07:00→21:00)
[2018-01-21 07:14] VITALS: BP 104/71
[2018-01-21] MEDS: METOPROLOL TARTRATE 25 MG TABLET PO SCH ×2 (07:22→17:36)
[2018-01-21] MEDS: TAMSULOSIN 0.4 MG CAP.ER.24H PO SCH (08:08)
[2018-01-21] MEDS: DIVALPROEX 500 MG TAB.ER.24H PO SCH ×2 (08:08→21:00)
[2018-01-21] MEDS: FENOFIBRATE 145 MG TABLET PO SCH (08:09)
[2018-01-21] MEDS: PANTOPRAZOLE 20MG TABLET PO SCH ×2 (08:09→20:59)
[2018-01-21] MEDS: ACETAMINOPHEN 325 MG TABLET PO PRN (16:04)
[2018-01-21 17:35] VITALS: BP_SYST 90; BP_SYST 96; BP_DIAS 60; BP_DIAS 66
[2018-01-21 19:17] VITALS: BP 114/75
[2018-01-21 20:43] VITALS: BP 105/71
[2018-01-21] MEDS: ATORVASTATIN 40 MG TABLET PO SCH (21:00)
[2018-01-21] MEDS: HALOPERIDOL 5 MG TABLET PO PRN (21:01)
[2018-01-22 05:34] VITALS: BP 110/70
[2018-01-22] MEDS: METOPROLOL TARTRATE 25 MG TABLET PO SCH ×2 (05:39→17:30)
[2018-01-22 07:40] VITALS: BP 107/69
[2018-01-22] MEDS: INSULIN LISPRO 100 UNITS/ML, PEN SQ-INSULIN SCH ×4 (07:43→20:44)
[2018-01-22] MEDS: ACETAMINOPHEN 325 MG TABLET PO PRN (07:48)
[2018-01-22] MEDS: PANTOPRAZOLE 20MG TABLET PO SCH ×2 (07:48→20:31)
[2018-01-22] MEDS: LORazepam 0.5MG TABLET PO PRN (07:55)
[2018-01-22] MEDS: FENOFIBRATE 145 MG TABLET PO SCH (08:32)
[2018-01-22] MEDS: DIVALPROEX 500 MG TAB.ER.24H PO SCH ×2 (08:32→20:31)
[2018-01-22] MEDS: TAMSULOSIN 0.4 MG CAP.ER.24H PO SCH (08:32)
[2018-01-22 16:53] VITALS: BP 92/61
[2018-01-22 19:14] VITALS: BP 99/70
[2018-01-22] MEDS: ATORVASTATIN 40 MG TABLET PO SCH (20:31)
[2018-01-22] MEDS: IBUPROFEN 200 MG TABLET PO PRN (21:00)
[2018-01-23] MEDS: LORazepam 0.5MG TABLET PO PRN ×2 (00:05→13:53)
[2018-01-23] MEDS: HALOPERIDOL 5 MG TABLET PO PRN ×2 (02:18→13:51)
[2018-01-23] MEDS: METOPROLOL TARTRATE 25 MG TABLET PO SCH ×2 (05:08→18:07)
[2018-01-23 07:21] VITALS: BP 100/66
[2018-01-23] MEDS: PANTOPRAZOLE 20MG TABLET PO SCH ×2 (07:25→20:30)
[2018-01-23] MEDS: INSULIN LISPRO 100 UNITS/ML, PEN SQ-INSULIN SCH (07:35)
[2018-01-23] MEDS: TAMSULOSIN 0.4 MG CAP.ER.24H PO SCH (08:14)
[2018-01-23] MEDS: FENOFIBRATE 145 MG TABLET PO SCH (08:14)
[2018-01-23] MEDS: DIVALPROEX 500 MG TAB.ER.24H PO SCH ×2 (08:14→20:30)
[2018-01-23 09:45] VITALS: BP 95/66
[2018-01-23 19:10] VITALS: BP 100/69
[2018-01-23] MEDS: ATORVASTATIN 40 MG TABLET PO SCH (20:30)
[2018-01-23] MEDS ORDERED: QUETIAPINE 25MG TABLET PO SCH (21:00)
[2018-01-24 05:29] VITALS: BP 95/63
[2018-01-24] MEDS: METOPROLOL TARTRATE 25 MG TABLET PO SCH ×2 (05:34→17:55)
[2018-01-24] MEDS: ACETAMINOPHEN 325 MG TABLET PO PRN ×2 (05:56→20:54)
[2018-01-24 07:22] VITALS: BP 89/61
[2018-01-24] MEDS: PANTOPRAZOLE 20MG TABLET PO SCH ×2 (08:34→20:31)
[2018-01-24] MEDS: FENOFIBRATE 145 MG TABLET PO SCH (08:35)
[2018-01-24] MEDS: TAMSULOSIN 0.4 MG CAP.ER.24H PO SCH (08:35)
[2018-01-24] MEDS: DIVALPROEX 500 MG TAB.ER.24H PO SCH ×2 (08:35→20:31)
[2018-01-24 08:58] VITALS: BP 112/73
[2018-01-24] MEDS: POLYETHYLENE GLYCOL 17 GM PACKET PO PRN (17:54)
[2018-01-24] MEDS: DOCUSATE 100 MG CAPSULE PO PRN (17:54)
[2018-01-24 17:55] VITALS: BP 92/56
[2018-01-24 19:56] VITALS: BP 105/73
[2018-01-24] MEDS: ATORVASTATIN 40 MG TABLET PO SCH (20:31)
[2018-01-24] MEDS: LORazepam 0.5MG TABLET PO PRN (22:16)
[2018-01-24] MEDS: HALOPERIDOL 5 MG TABLET PO PRN (22:17)
[2018-01-25] MEDS ORDERED: LORazepam 1MG TABLET PO ONE (00:30)
[2018-01-25] MEDS: METOPROLOL TARTRATE 25 MG TABLET PO SCH ×2 (06:00→18:25)
[2018-01-25 07:18] VITALS: BP 96/59
[2018-01-25] MEDS: DIVALPROEX 500 MG TAB.ER.24H PO SCH ×2 (08:10→20:20)
[2018-01-25] MEDS: PANTOPRAZOLE 20MG TABLET PO SCH ×2 (08:10→20:22)
[2018-01-25] MEDS: LORazepam 0.5MG TABLET PO PRN ×2 (08:10→20:20)
[2018-01-25] MEDS: TAMSULOSIN 0.4 MG CAP.ER.24H PO SCH (08:10)
[2018-01-25] MEDS: FENOFIBRATE 145 MG TABLET PO SCH (08:10)
[2018-01-25] MEDS: HALOPERIDOL 5 MG TABLET PO PRN ×2 (11:57→20:21)
[2018-01-25] MEDS: ALUMINUM/MAG/SIMETHICONE 30 ML UDC PO PRN (15:40)
[2018-01-25 19:34] VITALS: BP 99/66
[2018-01-25] MEDS: ATORVASTATIN 40 MG TABLET PO SCH (20:20)
[2018-01-26 07:00] VITALS: BP 94/65
[2018-01-26] MEDS: METOPROLOL TARTRATE 25 MG TABLET PO SCH ×2 (08:40→17:29)
[2018-01-26] MEDS: HALOPERIDOL 5 MG TABLET PO PRN ×2 (08:40→17:28)
[2018-01-26] MEDS: TAMSULOSIN 0.4 MG CAP.ER.24H PO SCH (08:40)
[2018-01-26] MEDS: PANTOPRAZOLE 20MG TABLET PO SCH ×3 (08:40→20:54)
[2018-01-26] MEDS: LORazepam 0.5MG TABLET PO PRN ×2 (08:40→17:29)
[2018-01-26] MEDS: DIVALPROEX 500 MG TAB.ER.24H PO SCH ×3 (08:40→21:00)
[2018-01-26] MEDS: FENOFIBRATE 145 MG TABLET PO SCH (08:40)
[2018-01-26] MEDS: ALUMINUM/MAG/SIMETHICONE 30 ML UDC PO PRN (13:38)
[2018-01-26] MEDS: POLYETHYLENE GLYCOL 17 GM PACKET PO PRN (13:38)
[2018-01-26 19:20] VITALS: BP 91/62
[2018-01-26] MEDS: ATORVASTATIN 40 MG TABLET PO SCH ×2 (20:55→21:00)
[2018-01-26] MEDS: ACETAMINOPHEN 325 MG TABLET PO PRN (22:39)
[2018-01-27] MEDS: METOPROLOL TARTRATE 25 MG TABLET PO SCH ×2 (05:25→18:28)
[2018-01-27] MEDS: ACETAMINOPHEN 325 MG TABLET PO PRN (06:11)
[2018-01-27 07:59] VITALS: BP 102/69
[2018-01-27] MEDS: DIVALPROEX 500 MG TAB.ER.24H PO SCH ×2 (08:12→21:33)
[2018-01-27] MEDS: PANTOPRAZOLE 20MG TABLET PO SCH ×2 (08:12→21:33)
[2018-01-27] MEDS: TAMSULOSIN 0.4 MG CAP.ER.24H PO SCH (08:12)
[2018-01-27] MEDS: FENOFIBRATE 145 MG TABLET PO SCH (08:12)
[2018-01-27] MEDS: LORazepam 0.5MG TABLET PO PRN ×2 (10:35→15:48)
[2018-01-27] MEDS: HALOPERIDOL 5 MG TABLET PO PRN (15:48)
[2018-01-27 18:28] VITALS: BP 107/71
[2018-01-27] MEDS: ATORVASTATIN 40 MG TABLET PO SCH (21:33)
[2018-01-27] MEDS: IBUPROFEN 200 MG TABLET PO PRN (21:35)
[2018-01-27 21:36] VITALS: BP 127/80
[2018-01-28 08:07] VITALS: BP 103/64
[2018-01-28] MEDS: DIVALPROEX 500 MG TAB.ER.24H PO SCH ×2 (08:27→20:42)
[2018-01-28] MEDS: METOPROLOL TARTRATE 25 MG TABLET PO SCH ×2 (08:28→18:20)
[2018-01-28] MEDS: PANTOPRAZOLE 20MG TABLET PO SCH ×2 (08:28→20:42)
[2018-01-28] MEDS: FENOFIBRATE 145 MG TABLET PO SCH (08:28)
[2018-01-28] MEDS: TAMSULOSIN 0.4 MG CAP.ER.24H PO SCH (08:28)
[2018-01-28 18:20] VITALS: BP 101/69
[2018-01-28 19:20] VITALS: BP 106/74
[2018-01-28] MEDS: LORazepam 0.5MG TABLET PO PRN (19:37)
[2018-01-28] MEDS: ATORVASTATIN 40 MG TABLET PO SCH (20:42)
[2018-01-29 07:19] VITALS: BP 102/68
[2018-01-29] MEDS: ACETAMINOPHEN 325 MG TABLET PO PRN (07:54)
[2018-01-29] MEDS: FENOFIBRATE 145 MG TABLET PO SCH (08:15)
[2018-01-29] MEDS: TAMSULOSIN 0.4 MG CAP.ER.24H PO SCH (08:15)
[2018-01-29] MEDS: DIVALPROEX 500 MG TAB.ER.24H PO SCH ×2 (08:15→20:37)
[2018-01-29] MEDS: PANTOPRAZOLE 20MG TABLET PO SCH ×2 (08:16→20:37)
[2018-01-29] MEDS: METOPROLOL TARTRATE 25 MG TABLET PO SCH ×2 (08:16→20:37)
[2018-01-29] MEDS: LORazepam 0.5MG TABLET PO PRN ×2 (11:31→19:26)
[2018-01-29] MEDS: HALOPERIDOL 5 MG TABLET PO PRN ×2 (11:32→19:26)
[2018-01-29] MEDS: DOCUSATE 100 MG CAPSULE PO PRN (18:35)
[2018-01-29] MEDS: IBUPROFEN 200 MG TABLET PO PRN (18:36)
[2018-01-29 19:54] VITALS: BP 98/67
[2018-01-29 20:31] VITALS: BP 106/71
[2018-01-29] MEDS: ATORVASTATIN 40 MG TABLET PO SCH (20:36)
[2018-01-30] MEDS: ACETAMINOPHEN 325 MG TABLET PO PRN (02:45)
[2018-01-30] MEDS: PANTOPRAZOLE 20MG TABLET PO SCH ×2 (07:37→20:18)
[2018-01-30] MEDS: METOPROLOL TARTRATE 25 MG TABLET PO SCH ×2 (07:37→18:18)
[2018-01-30 07:54] VITALS: BP 101/68
[2018-01-30] MEDS: TAMSULOSIN 0.4 MG CAP.ER.24H PO SCH (08:22)
[2018-01-30] MEDS: FENOFIBRATE 145 MG TABLET PO SCH (08:22)
[2018-01-30] MEDS: DIVALPROEX 500 MG TAB.ER.24H PO SCH ×2 (08:22→20:19)
[2018-01-30 14:36] LABS: MICROSCOPIC NOT IND
[2018-01-30 14:45] LABS: CULTURE INDICATED? NO
[2018-01-30] MEDS: LORazepam 0.5MG TABLET PO PRN (18:17)
[2018-01-30 18:21] VITALS: BP 100/69
[2018-01-30 19:24] VITALS: BP 118/82
[2018-01-30] MEDS: ATORVASTATIN 40 MG TABLET PO SCH (20:18)
[2018-01-30] MEDS: RISPERIDONE 1 MG TABLET PO SCH (20:18)
[2018-01-31] MEDS: ACETAMINOPHEN 325 MG TABLET PO PRN ×3 (03:54→18:18)
[2018-01-31 05:47] VITALS: BP 100/66
[2018-01-31] MEDS: METOPROLOL TARTRATE 25 MG TABLET PO SCH ×2 (05:59→19:00)
[2018-01-31 07:34] VITALS: BP 96/65
[2018-01-31] MEDS: FENOFIBRATE 145 MG TABLET PO SCH (08:05)
[2018-01-31] MEDS: PANTOPRAZOLE 20MG TABLET PO SCH ×2 (08:06→19:50)
[2018-01-31] MEDS: TAMSULOSIN 0.4 MG CAP.ER.24H PO SCH (08:06)
[2018-01-31] MEDS: DIVALPROEX 500 MG TAB.ER.24H PO SCH ×3 (08:06→21:19)
[2018-01-31] MEDS: HALOPERIDOL 5 MG TABLET PO PRN ×2 (08:06→21:20)
[2018-01-31] MEDS: LORazepam 0.5MG TABLET PO PRN ×2 (08:06→21:17)
[2018-01-31] MEDS: RISPERIDONE 1 MG TABLET PO SCH ×2 (19:51→21:20)
[2018-01-31] MEDS: ATORVASTATIN 40 MG TABLET PO SCH (19:51)
[2018-01-31] MEDS: IBUPROFEN 200 MG TABLET PO PRN (21:17)
[2018-02-01 07:30] VITALS: BP 98/64
[2018-02-01] MEDS: PANTOPRAZOLE 20MG TABLET PO SCH ×2 (08:25→20:49)
[2018-02-01] MEDS: TAMSULOSIN 0.4 MG CAP.ER.24H PO SCH (08:26)
[2018-02-01] MEDS: DIVALPROEX 500 MG TAB.ER.24H PO SCH ×2 (08:26→20:49)
[2018-02-01] MEDS: HALOPERIDOL 5 MG TABLET PO PRN ×2 (08:27→20:49)
[2018-02-01] MEDS: LORazepam 0.5MG TABLET PO PRN ×2 (08:27→20:49)
[2018-02-01] MEDS: FENOFIBRATE 145 MG TABLET PO SCH (08:27)
[2018-02-01] MEDS: METOPROLOL TARTRATE 25 MG TABLET PO SCH ×2 (08:27→20:49)
[2018-02-01] MEDS: ACETAMINOPHEN 325 MG TABLET PO PRN (09:25)
[2018-02-01 19:26] VITALS: BP 104/70
[2018-02-01] MEDS: ATORVASTATIN 40 MG TABLET PO SCH (20:49)
[2018-02-01] MEDS: DOCUSATE 100 MG CAPSULE PO PRN (20:52)
[2018-02-01] MEDS: RISPERIDONE 1 MG TABLET PO SCH (20:52)
[2018-02-01] MEDS: IBUPROFEN 200 MG TABLET PO PRN (20:52)
[2018-02-01] MEDS: ALUMINUM/MAG/SIMETHICONE 30 ML UDC PO PRN (21:27)
[2018-02-02 07:15] VITALS: BP 89/62
[2018-02-02] MEDS: DIVALPROEX 500 MG TAB.ER.24H PO SCH ×2 (08:40→20:06)
[2018-02-02] MEDS: FENOFIBRATE 145 MG TABLET PO SCH (08:40)
[2018-02-02] MEDS: PANTOPRAZOLE 20MG TABLET PO SCH ×2 (08:40→20:05)
[2018-02-02] MEDS: METOPROLOL TARTRATE 25 MG TABLET PO SCH ×2 (08:40→20:06)
[2018-02-02] MEDS: TAMSULOSIN 0.4 MG CAP.ER.24H PO SCH (08:40)
[2018-02-02 08:44] VITALS: BP 100/69
[2018-02-02] MEDS: IBUPROFEN 200 MG TABLET PO PRN (11:48)
[2018-02-02] MEDS: HALOPERIDOL 5 MG TABLET PO PRN (17:40)
[2018-02-02] MEDS: LORazepam 0.5MG TABLET PO PRN (17:40)
[2018-02-02 19:14] VITALS: BP 99/69
[2018-02-02] MEDS: RISPERIDONE 1 MG TABLET PO SCH (20:05)
[2018-02-02] MEDS: ATORVASTATIN 40 MG TABLET PO SCH (20:05)
[2018-02-03] MEDS: ACETAMINOPHEN 325 MG TABLET PO PRN ×2 (00:03→16:58)
[2018-02-03] MEDS: LORazepam 0.5MG TABLET PO PRN ×2 (00:54→20:02)
[2018-02-03] MEDS: HALOPERIDOL 5 MG TABLET PO PRN ×2 (00:54→16:58)
[2018-02-03 07:40] VITALS: BP_SYST 81; BP_SYST 85; BP_DIAS 60; BP_DIAS 61
[2018-02-03] MEDS: PANTOPRAZOLE 20MG TABLET PO SCH ×2 (08:21→20:03)
[2018-02-03] MEDS: METOPROLOL TARTRATE 25 MG TABLET PO SCH ×2 (08:22→20:03)
[2018-02-03] MEDS: DIVALPROEX 500 MG TAB.ER.24H PO SCH ×2 (08:22→20:03)
[2018-02-03] MEDS: TAMSULOSIN 0.4 MG CAP.ER.24H PO SCH (08:22)
[2018-02-03] MEDS: FENOFIBRATE 145 MG TABLET PO SCH (08:22)
[2018-02-03 16:59] VITALS: BP 96/64
[2018-02-03 19:51] VITALS: BP 106/73
[2018-02-03] MEDS: RISPERIDONE 1 MG TABLET PO SCH (20:03)
[2018-02-03] MEDS: ATORVASTATIN 40 MG TABLET PO SCH (20:03)
[2018-02-03] MEDS: ALUMINUM/MAG/SIMETHICONE 30 ML UDC PO PRN (22:13)
[2018-02-04] MEDS: IBUPROFEN 200 MG TABLET PO PRN ×2 (04:00→22:20)
[2018-02-04 07:51] VITALS: BP 84/61
[2018-02-04] MEDS: TAMSULOSIN 0.4 MG CAP.ER.24H PO SCH (08:38)
[2018-02-04] MEDS: PANTOPRAZOLE 20MG TABLET PO SCH ×2 (08:38→20:46)
[2018-02-04] MEDS: FENOFIBRATE 145 MG TABLET PO SCH (08:38)
[2018-02-04] MEDS: METOPROLOL TARTRATE 25 MG TABLET PO SCH ×2 (08:38→20:47)
[2018-02-04] MEDS: DIVALPROEX 500 MG TAB.ER.24H PO SCH ×2 (08:38→20:47)
[2018-02-04 19:41] VITALS: BP 106/73
[2018-02-04] MEDS: ATORVASTATIN 40 MG TABLET PO SCH (20:46)
[2018-02-04] MEDS: RISPERIDONE 1 MG TABLET PO SCH (20:47)
[2018-02-05 07:55] VITALS: BP 107/73
[2018-02-05] MEDS: TAMSULOSIN 0.4 MG CAP.ER.24H PO SCH (09:29)
[2018-02-05] MEDS: DIVALPROEX 500 MG TAB.ER.24H PO SCH ×2 (09:30→20:32)
[2018-02-05] MEDS: FENOFIBRATE 145 MG TABLET PO SCH (09:30)
[2018-02-05] MEDS: METOPROLOL TARTRATE 25 MG TABLET PO SCH ×2 (09:30→20:33)
[2018-02-05] MEDS: PANTOPRAZOLE 20MG TABLET PO SCH ×2 (09:30→20:32)
[2018-02-05] MEDS: ACETAMINOPHEN 325 MG TABLET PO PRN (17:20)
[2018-02-05 19:34] VITALS: BP 106/73
[2018-02-05] MEDS: RISPERIDONE 1 MG TABLET PO SCH (20:32)
[2018-02-05] MEDS: ATORVASTATIN 40 MG TABLET PO SCH (20:32)
[2018-02-05] MEDS: IBUPROFEN 200 MG TABLET PO PRN (20:33)
[2018-02-05] MEDS: LORazepam 0.5MG TABLET PO PRN (22:31)
[2018-02-06 07:27] VITALS: BP 85/55
[2018-02-06] MEDS: DIVALPROEX 500 MG TAB.ER.24H PO SCH (08:31)
[2018-02-06] MEDS: TAMSULOSIN 0.4 MG CAP.ER.24H PO SCH (08:31)
[2018-02-06] MEDS: FENOFIBRATE 145 MG TABLET PO SCH (08:31)
[2018-02-06] MEDS: PANTOPRAZOLE 20MG TABLET PO SCH (08:31)
[2018-02-06] MEDS: METOPROLOL TARTRATE 25 MG TABLET PO SCH (09:01)
== END 2018-02-06 10:30 | disposition home or self-care (01) | DRG 885 ==
LOC: 3E 18:33
PROVIDERS: ADMIT Counselor Mental Health; ATTEND Counselor Mental Health
DX: F31.2 Bipolar disorder, current episode manic severe with psychotic features (principal); R45.851 Suicidal ideations; F02.80 Dementia in other diseases classified elsewhere, unspecified severity, without behavioral disturbance, psychotic disturbance, mood disturbance, and anxiety; G30.9 Alzheimer's disease, unspecified; I12.9 Hypertensive chronic kidney disease with stage 1 through stage 4 chronic kidney disease, or unspecified chronic kidney disease; K21.9 Gastro-esophageal reflux disease without esophagitis; N18.3 Chronic kidney disease, stage 3 (moderate); F41.9 Anxiety disorder, unspecified; E78.1 Pure hyperglyceridemia; G47.33 Obstructive sleep apnea (adult) (pediatric); Z90.49 Acquired absence of other specified parts of digestive tract; Z79.899 Other long term (current) drug therapy; Z88.8 Allergy status to other drugs, medicaments and biological substances; Z91.013 Allergy to seafood; Z87.891 Personal history of nicotine dependence; Z82.0 Family history of epilepsy and other diseases of the nervous system; Z83.3 Family history of diabetes mellitus; Z82.49 Family history of ischemic heart disease and other diseases of the circulatory system
CPT/HCPCS: 80048; 80061; 81003; 82140; 82607; 82962; 84439; 84443; 85025; 86592; 93005; 92523-GN; J1815

== ENCOUNTER → 2018-05-10 | Outpatient (CLI) | payer MEDICARE ==
[~2018-05-10] MED LIST changes: +ACET-1600 PO; +ACET325T14 PO; +DIVA500T4 PO; +LORA-445 PO; +METO25TA35 PO; +NAPR220C2 PO; +OMEP-110 PO; +PALI117D IM; +PALI156D INJ; +PANT20TA3 PO; +TAMS-11 PO; -VANC125C2 PO; +VANC125C3 PO
[2018-05-10 11:27] LABS: BASOPHILS # (AUTO) 0.01 x10^3/uL (0-0.1); BASOPHILS % (AUTO) 0 % (0-1); EOSINOPHILS # (AUTO) 0.21 x10^3/uL (0-0.4); EOSINOPHILS % (AUTO) 4 % (1-7); INTERNATIONAL NORMALIZED RATIO 0.98 (0.93-1.1); LYMPHOCYTES # (AUTO) 1.14 x10^3/uL (1-3.4); LYMPHOCYTES % (AUTO) 20 % (22-44); MD NO; MEAN CORPUSCULAR HEMOGLOBIN 29.3 pg (27.0-34.8); MEAN CORPUSCULAR VOLUME 86.2 fL (80-100); MEAN PLATELET VOLUME 8.3 fL (7.4-10.4); MONOCYTES # (AUTO) 0.67 x10^3/uL (0.2-0.8); MONOCYTES % (AUTO) 12 % (2-9); NEUTROPHILS # (AUTO) 3.79 x10^3/uL (1.8-6.8); NEUTROPHILS % (AUTO) 65 % (42-75); PLATELET COUNT 279 x10^3/uL (130-400); PROTHROMBIN TIME 10.3 Seconds (9.6-11.5); RED BLOOD COUNT 4.54 x10^6/uL (3.82-5.3)
[2018-05-10 11:28] LABS: HCT (SEDRATE) 39.3 % (34.6-47.8)
[2018-05-10 11:30] LABS: MICROSCOPIC AUTO
[2018-05-10 11:30] LABS: ANION GAP 6 mmol/L (5-15); CHLORIDE 109 mmol/L (98-107); CREATININE 1.06 mg/dL (0.55-1.02)
[2018-05-10 11:34] LABS: CULTURE INDICATED? YES
== END | disposition home or self-care (01) ==
LOC: STAR 09:49
PROVIDERS: ATTEND Orthopaedic Surgery Orthopaedic Surgery of the Spine
DX: Z01.818 Encounter for other preprocedural examination (principal); M43.16 Spondylolisthesis, lumbar region; M48.061 Spinal stenosis, lumbar region without neurogenic claudication; M71.38 Other bursal cyst, other site; J47.9 Bronchiectasis, uncomplicated
CPT/HCPCS: 36415; 71046; 80048; 81001; 85025; 85610; 85651; 85730; 87086; 93005

== ENCOUNTER → 2018-05-10 | Outpatient (CLI) | payer MEDICARE ==
[~2018-05-10] MED LIST changes: +VANC125C2 PO; -VANC125C3 PO
== END | disposition home or self-care (01) ==
LOC: CFH 13:33
PROVIDERS: ATTEND Internal Medicine
DX: Z12.31 Encounter for screening mammogram for malignant neoplasm of breast (principal)
CPT/HCPCS: 77063; 77067

== ENCOUNTER 2018-05-17 05:49 | Inpatient (IN) | payer MEDICARE ==
[~2018-05-17] VITALS: Ht 154.9 cm; Wt 61.5 kg
[~2018-05-17 05:49] MED LIST changes: -VANC125C2 PO; +VANC125C3 PO
[2018-05-17] MEDS ORDERED: LACTATED RINGERS 1,000 ML IV SCH (06:46)
[2018-05-17] MEDS ORDERED: VANCOMYCIN PMX 1GM/200ML 200 ML IV ONE (07:00)
[2018-05-17] MEDS ORDERED: BUPIVACAINE/PF-EPI 0.5% 1:200K ONE (07:10)
[2018-05-17] MEDS ORDERED: VANCOMYCIN 1,000 MG ONE (07:11)
[2018-05-17] MEDS ORDERED: BACITRACIN 50,000 UNIT ONE (07:11)
[2018-05-17] MEDS ORDERED: TRANEXAMIC ACID 100 MG/ML, 10ML ONE ×2 (07:11)
[2018-05-17] MEDS ORDERED: THROMBIN 20,000 UNIT VIAL TP ONE (07:11)
[2018-05-17] MEDS ORDERED: PROPOFOL 50 ML ONE ×3 (07:20→10:09)
[2018-05-17] MEDS ORDERED: FENTANYL PF 250 MCG/5ML ONE (07:20)
[2018-05-17] MEDS ORDERED: MIDAZOLAM 1 MG/ML, 2ML ONE (07:20)
[2018-05-17] MEDS ORDERED: PROPOFOL 10 MG/ML, 20ML ONE (07:21)
[2018-05-17] MEDS ORDERED: GABAPENTIN 300 MG CAPSULE ONE (07:48)
[2018-05-17] MEDS ORDERED: ACETAMINOPHEN 500 MG TABLET ONE (07:48)
[2018-05-17] MEDS ORDERED: GABAPENTIN 300 MG CAPSULE PO ONE (08:00)
[2018-05-17] MEDS ORDERED: LORazepam 2 MG/ML, 1ML IVPush PRN (08:00)
[2018-05-17] MEDS ORDERED: FENTANYL PF 100 MCG/2ML IV PRN (08:00)
[2018-05-17] MEDS ORDERED: MEPERIDINE/PF 25MG/0.5ML IVPush PRN (08:00)
[2018-05-17] MEDS ORDERED: LABETALOL 5MG/ML, 20ML IV PRN (08:00)
[2018-05-17] MEDS ORDERED: METOCLOPRAMIDE 5 MG/ML, 2ML IV PRN (08:00)
[2018-05-17] MEDS ORDERED: MORPHINE SULFATE 4 MG/ML, 1ML IVPush PRN (08:00)
[2018-05-17] MEDS ORDERED: ACETAMINOPHEN 500 MG TABLET PO ONE (08:00)
[2018-05-17] MEDS ORDERED: OXYcodone 5 MG/5 ML ORAL.SOL UDC PO PRN (08:00)
[2018-05-17] MEDS ORDERED: HYDROmorphone 2 MG/ML, 1ML IVPush PRN (08:00)
[2018-05-17] MEDS ORDERED: hydrALAzine 20 MG/ML, 1ML IV PRN (08:00)
[2018-05-17] MEDS ORDERED: BUPIVACAINE/PF-EPI 0.5% 1:200K INFIL ONE (08:50)
[2018-05-17] MEDS ORDERED: PHENYLEPHRINE 10 MG/ML ONE (09:05)
[2018-05-17] MEDS ORDERED: DEXAMETHASONE 4 MG/ML, 1ML ONE ×2 (09:05)
[2018-05-17] MEDS ORDERED: ROCURONIUM 10MG/ML,5ML ONE (09:05)
[2018-05-17] MEDS ORDERED: SUCCINYLCHOLINE 20 MG/ML, 10ML ONE (09:05)
[2018-05-17] MEDS ORDERED: ONDANSETRON 2MG/ML, 2ML ONE (09:05)
[2018-05-17] MEDS ORDERED: LIDOCAINE-MPF 2% ,5ML ONE (09:05)
[2018-05-17] MEDS ORDERED: OXYcodone 5 MG/5 ML ORAL.SOL UDC ONE (11:59)
[2018-05-17] MEDS ORDERED: FENTANYL PF 100 MCG/2ML ONE (11:59)
[2018-05-17] MEDS ORDERED: KETOROLAC 30 MG/1 ML ONE (12:23)
[2018-05-17] MEDS ORDERED: KETOROLAC 30 MG/1 ML IM PRN (12:30)
[2018-05-17] MEDS: KETOROLAC 30 MG/1 ML IV PRN (12:30)
[2018-05-17 13:10] VITALS: BP 110/75
[2018-05-17] MEDS ORDERED: LABETALOL 5 MG/ML SYRINGE IV PRN (13:30)
[2018-05-17] MEDS ORDERED: DIPHENHYDRAMINE 50 MG CAPSULE PO PRN (13:30)
[2018-05-17] MEDS ORDERED: PALIPERIDONE PALMITATE IM SCH (13:30)
[2018-05-17] MEDS ORDERED: MAGNESIUM HYDROXIDE 8%, 30ML UDC PO PRN (13:30)
[2018-05-17] MEDS ORDERED: DIPHENHYDRAMINE 50 MG/ML, 1ML IM PRN (13:30)
[2018-05-17] MEDS ORDERED: DEXAMETHASONE 4 MG/ML, 5ML IV PRN (13:30)
[2018-05-17] MEDS ORDERED: DIPHENHYDRAMINE 50 MG/ML, 1ML IVPush PRN (13:30)
[2018-05-17] MEDS ORDERED: PROMETHAZINE 25 MG/ML, 1ML IM PRN (13:30)
[2018-05-17] MEDS ORDERED: ONDANSETRON 2MG/ML, 2ML IV PRN (13:30)
[2018-05-17] MEDS ORDERED: DIAZEPAM 5 MG/ML, 2ML IV PRN (13:30)
[2018-05-17] MEDS ORDERED: KETOROLAC 30 MG/1 ML IV ONE (13:30)
[2018-05-17] MEDS ORDERED: LORazepam 1MG TABLET PO PRN (13:30)
[2018-05-17] MEDS ORDERED: ACETAMINOPHEN 500 MG TABLET PO PRN (13:30)
[2018-05-17] MEDS ORDERED: SODIUM CHLORIDE 0.9% 1,000 ML IV PRN (13:30)
[2018-05-17] MEDS ORDERED: morphine SULFATE 10 MG/ML, 1ML IV PRN (13:30)
[2018-05-17] MEDS ORDERED: METHOCARBAMOL 1,000 MG in DEXTROSE 5% 100 ML IV ONE (13:30)
[2018-05-17] MEDS: CEFAZOLIN PMX 1GM/50ML 50 ML IVPB SCH ×2 (15:04→23:23)
[2018-05-17] MEDS: ACETAMINOPHEN 500 MG TABLET PO SCH ×2 (15:04→20:57)
[2018-05-17] MEDS: D5%-0.9% NACL+KCL 20MEQ 1,000 ML IV SCH (15:04)
[2018-05-17 19:43] VITALS: BP 100/67
[2018-05-17] MEDS: METHOCARBAMOL 750 MG in DEXTROSE 5% 100 ML IV SCH (20:56)
[2018-05-17] MEDS: CALCIUM CARBONATE 500 MG TAB.CHEW PO PRN (20:57)
[2018-05-17] MEDS: DIVALPROEX 500 MG TABLET.DR PO SCH (20:57)
[2018-05-17] MEDS ORDERED: ZOLPIDEM 5MG TABLET PO PRN (21:00)
[2018-05-17] MEDS: INSULIN LISPRO 100 UNITS/ML, PEN SQ-INSULIN SCH (22:00)
[2018-05-18 00:13] VITALS: BP 107/71
[2018-05-18] MEDS: D5%-0.9% NACL+KCL 20MEQ 1,000 ML IV SCH ×2 (02:00→15:00)
[2018-05-18 04:22] VITALS: BP 103/71
[2018-05-18 05:04] LABS: BASOPHILS # (AUTO) 0.01 x10^3/uL (0-0.1); BASOPHILS % (AUTO) 0 % (0-1); EOSINOPHILS # (AUTO) 0.02 x10^3/uL (0-0.4); EOSINOPHILS % (AUTO) 0 % (1-7); LYMPHOCYTES # (AUTO) 0.71 x10^3/uL (1-3.4); LYMPHOCYTES % (AUTO) 8 % (22-44); MD NO; MEAN CORPUSCULAR HGB CONC 32.9 g/dL (32.4-35.8); MEAN CORPUSCULAR VOLUME 88.1 fL (80-100); MONOCYTES # (AUTO) 1.22 x10^3/uL (0.2-0.8); MONOCYTES % (AUTO) 13 % (2-9); NEUTROPHILS # (AUTO) 7.37 x10^3/uL (1.8-6.8); NEUTROPHILS % (AUTO) 79 % (42-75); PLATELET COUNT 223 x10^3/uL (130-400); RED BLOOD COUNT 3.72 x10^6/uL (3.82-5.3); RED CELL DISTRIBUTION WIDTH 15.7 % (9.6-15.2)
[2018-05-18] MEDS: METHOCARBAMOL 750 MG in DEXTROSE 5% 100 ML IV SCH ×3 (06:18→21:49)
[2018-05-18] MEDS: OMEPRAZOLE 20 MG CAPSULE.DR PO SCH (06:18)
[2018-05-18] MEDS: INSULIN LISPRO 100 UNITS/ML, PEN SQ-INSULIN SCH ×4 (07:00→21:00)
[2018-05-18] MEDS: DIVALPROEX 500 MG TABLET.DR PO SCH ×2 (07:35→21:50)
[2018-05-18] MEDS: ACETAMINOPHEN 500 MG TABLET PO SCH ×3 (07:35→21:49)
[2018-05-18] MEDS: SENNA/DOCUSATE TABLET PO SCH (07:35)
[2018-05-18 08:29] VITALS: BP 101/68
[2018-05-18] MEDS: CALCIUM CARBONATE 500 MG TAB.CHEW PO PRN ×2 (10:36→18:01)
[2018-05-18] MEDS: OXYcodone IR 5MG TABLET PO PRN ×2 (13:05→21:52)
[2018-05-18 15:47] VITALS: BP 100/68
[2018-05-18 19:11] VITALS: BP 98/65
[2018-05-19] MEDS: D5%-0.9% NACL+KCL 20MEQ 1,000 ML IV SCH ×3 (00:36→20:24)
[2018-05-19 01:15] VITALS: BP 97/63
[2018-05-19 06:00] LABS: BASOPHILS # (AUTO) 0.01 x10^3/uL (0-0.1); BASOPHILS % (AUTO) 0 % (0-1); EOSINOPHILS # (AUTO) 0.08 x10^3/uL (0-0.4); EOSINOPHILS % (AUTO) 1 % (1-7); LYMPHOCYTES # (AUTO) 0.94 x10^3/uL (1-3.4); LYMPHOCYTES % (AUTO) 8 % (22-44); MD NO; MEAN CORPUSCULAR HEMOGLOBIN 29.7 pg (27.0-34.8); MEAN CORPUSCULAR HGB CONC 33.7 g/dL (32.4-35.8); MEAN CORPUSCULAR VOLUME 87.9 fL (80-100); MEAN PLATELET VOLUME 8.6 fL (7.4-10.4); MONOCYTES # (AUTO) 1.39 x10^3/uL (0.2-0.8); MONOCYTES % (AUTO) 12 % (2-9); NEUTROPHILS # (AUTO) 9.04 x10^3/uL (1.8-6.8); NEUTROPHILS % (AUTO) 79 % (42-75); PLATELET COUNT 202 x10^3/uL (130-400); RED BLOOD COUNT 3.42 x10^6/uL (3.82-5.3); RED CELL DISTRIBUTION WIDTH 15.6 % (9.6-15.2)
[2018-05-19] MEDS: OMEPRAZOLE 20 MG CAPSULE.DR PO SCH (06:20)
[2018-05-19] MEDS: METHOCARBAMOL 750 MG in DEXTROSE 5% 100 ML IV SCH ×2 (06:20→13:20)
[2018-05-19 06:50] VITALS: BP 103/67
[2018-05-19] MEDS: INSULIN LISPRO 100 UNITS/ML, PEN SQ-INSULIN SCH ×4 (07:00→21:41)
[2018-05-19] MEDS: ACETAMINOPHEN 500 MG TABLET PO SCH ×3 (09:08→21:42)
[2018-05-19] MEDS: SENNA/DOCUSATE TABLET PO SCH (09:08)
[2018-05-19] MEDS: DIVALPROEX 500 MG TABLET.DR PO SCH ×2 (09:08→21:42)
[2018-05-19] MEDS: KETOROLAC 30 MG/1 ML IV PRN ×2 (09:13→16:32)
[2018-05-19] MEDS: METHOCARBAMOL 750 MG TABLET PO SCH ×2 (12:30→20:23)
[2018-05-19 12:59] VITALS: BP 93/53
[2018-05-19 18:41] VITALS: BP 92/60
[2018-05-19 20:15] VITALS: BP 99/67
[2018-05-19] MEDS: BISACODYL 10 MG SUPP PR PRN (20:23)
[2018-05-19] MEDS: CALCIUM CARBONATE 500 MG TAB.CHEW PO PRN (20:23)
[2018-05-20] MEDS: KETOROLAC 30 MG/1 ML IV PRN ×5 (02:07→20:06)
[2018-05-20 02:15] VITALS: BP 111/73
[2018-05-20 05:02] LABS: MEAN CORPUSCULAR HEMOGLOBIN 29.4 pg (27.0-34.8); MEAN CORPUSCULAR HGB CONC 33.6 g/dL (32.4-35.8); MEAN CORPUSCULAR VOLUME 87.4 fL (80-100); MEAN PLATELET VOLUME 8.7 fL (7.4-10.4); PLATELET COUNT 195 x10^3/uL (130-400); RED BLOOD COUNT 3.29 x10^6/uL (3.82-5.3); RED CELL DISTRIBUTION WIDTH 15.6 % (9.6-15.2)
[2018-05-20] MEDS: METHOCARBAMOL 750 MG TABLET PO SCH ×3 (05:41→20:06)
[2018-05-20] MEDS: OMEPRAZOLE 20 MG CAPSULE.DR PO SCH (05:41)
[2018-05-20 05:47] LABS: MD YES
[2018-05-20 05:54] LABS: BAND#(MANUAL) 1.44 x10^3/uL; BANDS%(MANUAL) 15 % (0-7); EOS#(MANUAL) 0.48 x10^3/uL (0.0-0.4); EOS% (MANUAL) 5 % (1-7); LYMPH#(MANUAL) 1.15 x10^3/uL (1-3.4); LYMPHS% (MANUAL) 12 % (22-44); MONOS#(MANUAL) 0.96 x10^3/uL (0.3-2.7); MONOS% (MANUAL) 10 % (2-9); SEG#(MANUAL) 5.57 x10^3/uL (1.8-6.8); SEGS% (MANUAL) 58 % (42-75)
[2018-05-20 05:59] LABS: <PLATELET ESTIMATE> ADEQUATE; <PLT MORPHOLOGY> NORMAL PLT MORPH
[2018-05-20 06:00] LABS: <RBC MORPHOLOGY> NORMAL
[2018-05-20] MEDS: D5%-0.9% NACL+KCL 20MEQ 1,000 ML IV SCH ×2 (07:00→16:09)
[2018-05-20] MEDS: INSULIN LISPRO 100 UNITS/ML, PEN SQ-INSULIN SCH ×4 (07:00→20:07)
[2018-05-20 07:31] VITALS: BP 95/57
[2018-05-20] MEDS: DIVALPROEX 500 MG TABLET.DR PO SCH ×2 (09:15→20:05)
[2018-05-20] MEDS: ACETAMINOPHEN 500 MG TABLET PO SCH ×3 (09:15→20:06)
[2018-05-20] MEDS: SENNA/DOCUSATE TABLET PO SCH (09:16)
[2018-05-20] MEDS: DIAZEPAM 5 MG TABLET PO PRN ×2 (10:51→21:46)
[2018-05-20 12:55] VITALS: BP 100/62
[2018-05-20 19:35] VITALS: BP 96/52
[2018-05-21 02:37] VITALS: BP 97/62
[2018-05-21] MEDS: D5%-0.9% NACL+KCL 20MEQ 1,000 ML IV SCH ×2 (03:00→17:00)
[2018-05-21] MEDS: DIAZEPAM 5 MG TABLET PO PRN (04:05)
[2018-05-21] MEDS: METHOCARBAMOL 750 MG TABLET PO SCH ×3 (04:17→20:53)
[2018-05-21] MEDS: KETOROLAC 30 MG/1 ML IV PRN ×2 (04:17→20:57)
[2018-05-21 05:00] LABS: BASOPHILS # (AUTO) 0.05 x10^3/uL (0-0.1); BASOPHILS % (AUTO) 1 % (0-1); EOSINOPHILS # (AUTO) 0.21 x10^3/uL (0-0.4); EOSINOPHILS % (AUTO) 3 % (1-7); LYMPHOCYTES # (AUTO) 0.99 x10^3/uL (1-3.4); LYMPHOCYTES % (AUTO) 13 % (22-44); MD NO; MEAN CORPUSCULAR HEMOGLOBIN 29.5 pg (27.0-34.8); MEAN CORPUSCULAR HGB CONC 33.8 g/dL (32.4-35.8); MEAN CORPUSCULAR VOLUME 87.3 fL (80-100); MEAN PLATELET VOLUME 8.6 fL (7.4-10.4); MONOCYTES # (AUTO) 0.97 x10^3/uL (0.2-0.8); MONOCYTES % (AUTO) 13 % (2-9); NEUTROPHILS # (AUTO) 5.54 x10^3/uL (1.8-6.8); NEUTROPHILS % (AUTO) 71 % (42-75); PLATELET COUNT 211 x10^3/uL (130-400); RED BLOOD COUNT 3.23 x10^6/uL (3.82-5.3); RED CELL DISTRIBUTION WIDTH 15.6 % (9.6-15.2)
[2018-05-21] MEDS: OMEPRAZOLE 20 MG CAPSULE.DR PO SCH (06:29)
[2018-05-21] MEDS: INSULIN LISPRO 100 UNITS/ML, PEN SQ-INSULIN SCH ×4 (06:39→21:00)
[2018-05-21 07:17] VITALS: BP 99/67
[2018-05-21] MEDS: SENNA/DOCUSATE TABLET PO SCH (08:29)
[2018-05-21] MEDS: DIVALPROEX 500 MG TABLET.DR PO SCH ×2 (08:29→20:53)
[2018-05-21] MEDS: ACETAMINOPHEN 500 MG TABLET PO SCH ×3 (08:29→20:53)
[2018-05-21 14:58] VITALS: BP 109/73
[2018-05-21 15:01] VITALS: BP 147/80
[2018-05-21] MEDS: OXYcodone IR 5MG TABLET PO PRN (15:52)
[2018-05-21 19:00] VITALS: BP 121/80
[2018-05-21 19:51] LABS: TROPONIN I < 0.015 ng/mL (0.000-0.045)
[2018-05-21 20:05] VITALS: BP 118/75
[2018-05-21] MEDS ORDERED: DEXAMETHASONE 4 MG/ML, 1ML ONE (20:49)
[2018-05-21] MEDS ORDERED: ASPIRIN 81 MG TABLET EC PO ONE (21:30)
[2018-05-21] MEDS ORDERED: SODIUM CHLORIDE 0.9% 1,000 ML IV SCH (21:30)
[2018-05-22 01:38] VITALS: BP 105/73
[2018-05-22 02:10] LABS: CHLORIDE 112 mmol/L (98-107)
[2018-05-22 02:11] LABS: ANION GAP 9 mmol/L (5-15); CALCIUM 9.3 mg/dL (8.5-10.1); CREATININE 1.26 mg/dL (0.55-1.02)
[2018-05-22 02:14] LABS: TROPONIN I < 0.015 ng/mL (0.000-0.045)
[2018-05-22 02:19] LABS: BASOPHILS # (AUTO) 0.02 x10^3/uL (0-0.1); BASOPHILS % (AUTO) 0 % (0-1); EOSINOPHILS # (AUTO) 0.04 x10^3/uL (0-0.4); EOSINOPHILS % (AUTO) 1 % (1-7); LYMPHOCYTES # (AUTO) 0.54 x10^3/uL (1-3.4); LYMPHOCYTES % (AUTO) 7 % (22-44); MD NO; MEAN CORPUSCULAR HEMOGLOBIN 29.3 pg (27.0-34.8); MEAN CORPUSCULAR HGB CONC 33.7 g/dL (32.4-35.8); MEAN CORPUSCULAR VOLUME 86.9 fL (80-100); MEAN PLATELET VOLUME 8.4 fL (7.4-10.4); MONOCYTES # (AUTO) 0.46 x10^3/uL (0.2-0.8); MONOCYTES % (AUTO) 6 % (2-9); NEUTROPHILS # (AUTO) 6.79 x10^3/uL (1.8-6.8); NEUTROPHILS % (AUTO) 87 % (42-75); PLATELET COUNT 268 x10^3/uL (130-400); RED BLOOD COUNT 3.31 x10^6/uL (3.82-5.3); RED CELL DISTRIBUTION WIDTH 15.7 % (9.6-15.2)
[2018-05-22] MEDS: METHOCARBAMOL 750 MG TABLET PO SCH ×3 (04:25→20:53)
[2018-05-22] MEDS: KETOROLAC 30 MG/1 ML IV PRN (04:46)
[2018-05-22] MEDS: OMEPRAZOLE 20 MG CAPSULE.DR PO SCH (06:00)
[2018-05-22 07:57] VITALS: BP 118/71
[2018-05-22] MEDS: DIVALPROEX 500 MG TABLET.DR PO SCH ×2 (08:07→20:53)
[2018-05-22] MEDS: SENNA/DOCUSATE TABLET PO SCH (08:07)
[2018-05-22] MEDS: ACETAMINOPHEN 500 MG TABLET PO SCH ×3 (08:07→20:53)
[2018-05-22] MEDS: INSULIN LISPRO 100 UNITS/ML, PEN SQ-INSULIN SCH ×4 (08:07→20:59)
[2018-05-22 12:54] LABS: MICROSCOPIC NOT IND
[2018-05-22 13:04] LABS: CULTURE INDICATED? NO
[2018-05-22 13:35] VITALS: BP 130/77
[2018-05-22 13:58] LABS: TROPONIN I < 0.015 ng/mL (0.000-0.045)
[2018-05-22] MEDS: OXYcodone IR 5MG TABLET PO PRN ×2 (16:23→20:54)
[2018-05-22 19:48] VITALS: BP 114/71
[2018-05-23 00:36] VITALS: BP 115/76
[2018-05-23] MEDS: METHOCARBAMOL 750 MG TABLET PO SCH ×3 (03:24→20:06)
[2018-05-23] MEDS: OXYcodone IR 5MG TABLET PO PRN ×3 (03:24→20:24)
[2018-05-23] MEDS: OMEPRAZOLE 20 MG CAPSULE.DR PO SCH ×2 (05:47→20:06)
[2018-05-23 06:17] LABS: ANION GAP 5 mmol/L (5-15); CALCIUM 9.4 mg/dL (8.5-10.1); CHLORIDE 117 mmol/L (98-107); CHOLESTEROL, TOTAL 223 mg/dL (140-239); CREATININE 0.99 mg/dL (0.55-1.02); TRIGLYCERIDES 368 mg/dL (50-200); VLDL CHOLESTEROL 74 mg/dL (0-25)
[2018-05-23 06:19] LABS: CHOL/HDL RATIO 24.8; HDL CHOL % 4 % (28-40); HDL CHOLESTEROL (DIRECT) 9 mg/dL (40-60); LDL CHOLESTEROL,CALCULATED 140 mg/dL (54-169); LDL/HDL RATIO 15.6 (0.5-3.0)
[2018-05-23] MEDS: INSULIN LISPRO 100 UNITS/ML, PEN SQ-INSULIN SCH ×4 (07:00→21:31)
[2018-05-23 07:45] VITALS: BP 123/78
[2018-05-23] MEDS: DIVALPROEX 500 MG TABLET.DR PO SCH ×2 (08:27→20:05)
[2018-05-23] MEDS: ACETAMINOPHEN 500 MG TABLET PO SCH ×3 (08:27→20:06)
[2018-05-23] MEDS ORDERED: REGADENOSON 0.4 MG/5 ML SYRINGE ONE (08:52)
[2018-05-23] MEDS: SENNA/DOCUSATE TABLET PO SCH (11:55)
[2018-05-23 13:00] VITALS: BP 108/71
[2018-05-23 18:50] VITALS: BP 106/70
[2018-05-23] MEDS ORDERED: SIMVASTATIN 40 MG TABLET PO SCH (21:00)
[2018-05-24] MEDS: DIAZEPAM 5 MG TABLET PO PRN ×2 (01:42→15:07)
[2018-05-24 02:17] VITALS: BP 115/71
[2018-05-24] MEDS: METHOCARBAMOL 750 MG TABLET PO SCH ×3 (04:19→20:08)
[2018-05-24] MEDS: INSULIN LISPRO 100 UNITS/ML, PEN SQ-INSULIN SCH ×4 (06:22→21:09)
[2018-05-24] MEDS: OXYcodone IR 5MG TABLET PO PRN ×2 (06:22→14:09)
[2018-05-24 08:59] VITALS: BP 107/62
[2018-05-24] MEDS: SENNA/DOCUSATE TABLET PO SCH (09:22)
[2018-05-24] MEDS: ACETAMINOPHEN 500 MG TABLET PO SCH (09:22)
[2018-05-24] MEDS: DIVALPROEX 500 MG TABLET.DR PO SCH ×2 (09:23→20:08)
[2018-05-24] MEDS: OMEPRAZOLE 20 MG CAPSULE.DR PO SCH (09:23)
[2018-05-24 12:56] VITALS: BP 105/70
[2018-05-24] MEDS ORDERED: OXYC5TAB3 PO (13:49)
[2018-05-24] MEDS ORDERED: METH750T2 PO (13:50)
[2018-05-24] MEDS ORDERED: CEPH-368 PO (13:51)
[2018-05-24] MEDS ORDERED: NITROGLYCERIN 0.4 MG BOTTLE (25 TABS) SL ONE (15:39)
[2018-05-24 16:04] VITALS: BP 113/75
[2018-05-24 16:12] LABS: BASOPHILS # (AUTO) 0.04 x10^3/uL (0-0.1); BASOPHILS % (AUTO) 0 % (0-1); EOSINOPHILS # (AUTO) 0.17 x10^3/uL (0-0.4); EOSINOPHILS % (AUTO) 1 % (1-7); LYMPHOCYTES # (AUTO) 0.84 x10^3/uL (1-3.4); LYMPHOCYTES % (AUTO) 7 % (22-44); MD NO; MEAN CORPUSCULAR HEMOGLOBIN 29.3 pg (27.0-34.8); MEAN CORPUSCULAR HGB CONC 34.1 g/dL (32.4-35.8); MEAN CORPUSCULAR VOLUME 85.9 fL (80-100); MEAN PLATELET VOLUME 7.5 fL (7.4-10.4); MONOCYTES # (AUTO) 1.35 x10^3/uL (0.2-0.8); MONOCYTES % (AUTO) 12 % (2-9); NEUTROPHILS # (AUTO) 9.42 x10^3/uL (1.8-6.8); NEUTROPHILS % (AUTO) 80 % (42-75); PLATELET COUNT 404 x10^3/uL (130-400); RED BLOOD COUNT 3.35 x10^6/uL (3.82-5.3); RED CELL DISTRIBUTION WIDTH 16.6 % (9.6-15.2)
[2018-05-24 16:21] LABS: ANION GAP 6 mmol/L (5-15); CALCIUM 9.1 mg/dL (8.5-10.1); CHLORIDE 107 mmol/L (98-107); CREATININE 1.31 mg/dL (0.55-1.02)
[2018-05-24 16:25] LABS: TROPONIN I < 0.015 ng/mL (0.000-0.045)
[2018-05-24] MEDS: PANTOPRAZOLE 40 MG IV IVPush SCH (17:07)
[2018-05-24 17:27] LABS: BASOPHILS % (AUTO) 0 % (0-1); EOSINOPHILS # (AUTO) 0.17 x10^3/uL (0-0.4); EOSINOPHILS % (AUTO) 2 % (1-7); LYMPHOCYTES # (AUTO) 0.72 x10^3/uL (1-3.4); LYMPHOCYTES % (AUTO) 6 % (22-44); MD NO; MEAN CORPUSCULAR HEMOGLOBIN 29.1 pg (27.0-34.8); MEAN CORPUSCULAR HGB CONC 33.9 g/dL (32.4-35.8); MEAN CORPUSCULAR VOLUME 85.8 fL (80-100); MEAN PLATELET VOLUME 7.5 fL (7.4-10.4); MONOCYTES % (AUTO) 9 % (2-9); NEUTROPHILS # (AUTO) 9.77 x10^3/uL (1.8-6.8); NEUTROPHILS % (AUTO) 83 % (42-75); PLATELET COUNT 401 x10^3/uL (130-400); RED CELL DISTRIBUTION WIDTH 16.4 % (9.6-15.2)
[2018-05-24] MEDS ORDERED: VANCOMYCIN PER PHARMACY MC PRN (17:30)
[2018-05-24] MEDS ORDERED: PHARMACOKINETIC CONSULTATION MC ONE (17:30)
[2018-05-24] MEDS ORDERED: PHARMACY MAY ADJ FOR RENAL FX MC PRN (17:30)
[2018-05-24] MEDS ORDERED: PHARMACOKINETIC MONITORING MC PRN (17:30)
[2018-05-24] MEDS ORDERED: SODIUM CHLORIDE 0.9% 1,000ML IVBOLUS ONE (17:30)
[2018-05-24 17:42] LABS: ALANINE AMINOTRANSFERASE 23 U/L (12-78); ALBUMIN 2.1 g/dL (3.4-5.0); ANION GAP 2 mmol/L (5-15); CHLORIDE 107 mmol/L (98-107); CREATININE 1.21 mg/dL (0.55-1.02)
[2018-05-24] MEDS: PIPERACILLIN/TAZO/PMX 3.375GM 50 ML IV SCH ×2 (17:42→23:35)
[2018-05-24 17:44] LABS: ALKALINE PHOSPHATASE 76 U/L (45-117); BILIRUBIN,TOTAL 0.3 mg/dL (0.2-1.0); TOTAL PROTEIN 6.9 g/dL (6.4-8.2)
[2018-05-24 17:54] VITALS: BP 88/55
[2018-05-24 18:03] LABS: MICROSCOPIC NOT IND
[2018-05-24 18:06] LABS: CULTURE INDICATED? NO
[2018-05-24] MEDS: VANCOMYCIN 1,300 MG in SODIUM CHLORIDE 0.9% 250 ML IV SCH (18:10)
[2018-05-24] MEDS ORDERED: OMNIPAQUE 350 MG/ML, 100ML BOTTLE ONE (18:34)
[2018-05-24 19:44] VITALS: BP 93/63
[2018-05-24 20:56] LABS: TROPONIN I < 0.015 ng/mL (0.000-0.045)
[2018-05-24] MEDS: SODIUM CHLORIDE 0.45% 1,000 ML IV SCH (21:21)
[2018-05-24] MEDS ORDERED: LORazepam 0.5MG TABLET PO PRN (21:30)
[2018-05-25 01:02] VITALS: BP 107/71
[2018-05-25 02:44] VITALS: BP 112/76
[2018-05-25] MEDS: PANTOPRAZOLE 40 MG IV IVPush SCH (05:09)
[2018-05-25] MEDS: PIPERACILLIN/TAZO/PMX 3.375GM 50 ML IV SCH ×4 (05:09→23:40)
[2018-05-25] MEDS: METHOCARBAMOL 750 MG TABLET PO SCH ×3 (05:09→20:41)
[2018-05-25] MEDS: SODIUM CHLORIDE 0.45% 1,000 ML IV SCH ×3 (05:10→16:30)
[2018-05-25 05:35] LABS: BASOPHILS # (AUTO) 0.03 x10^3/uL (0-0.1); BASOPHILS % (AUTO) 0 % (0-1); EOSINOPHILS % (AUTO) 2 % (1-7); LYMPHOCYTES % (AUTO) 7 % (22-44); MD NO; MEAN CORPUSCULAR HEMOGLOBIN 29.4 pg (27.0-34.8); MEAN CORPUSCULAR HGB CONC 34.1 g/dL (32.4-35.8); MEAN PLATELET VOLUME 7.6 fL (7.4-10.4); MONOCYTES # (AUTO) 1.33 x10^3/uL (0.2-0.8); MONOCYTES % (AUTO) 11 % (2-9); NEUTROPHILS # (AUTO) 9.74 x10^3/uL (1.8-6.8); NEUTROPHILS % (AUTO) 81 % (42-75); PLATELET COUNT 358 x10^3/uL (130-400); RED BLOOD COUNT 2.96 x10^6/uL (3.82-5.3); RED CELL DISTRIBUTION WIDTH 16.3 % (9.6-15.2)
[2018-05-25 05:40] LABS: ALBUMIN 1.9 g/dL (3.4-5.0); ANION GAP 5 mmol/L (5-15); CALCIUM 8.7 mg/dL (8.5-10.1); CHLORIDE 113 mmol/L (98-107)
[2018-05-25 05:46] LABS: CREATININE 1.16 mg/dL (0.55-1.02)
[2018-05-25 05:47] LABS: ALANINE AMINOTRANSFERASE 19 U/L (12-78); ALKALINE PHOSPHATASE 68 U/L (45-117); BILIRUBIN,TOTAL 0.5 mg/dL (0.2-1.0); TOTAL PROTEIN 6.3 g/dL (6.4-8.2); TROPONIN I < 0.015 ng/mL (0.000-0.045)
[2018-05-25 06:37] VITALS: BP 96/65
[2018-05-25] MEDS: INSULIN LISPRO 100 UNITS/ML, PEN SQ-INSULIN SCH ×4 (07:00→20:42)
[2018-05-25] MEDS: DIVALPROEX 500 MG TABLET.DR PO SCH ×2 (08:52→20:41)
[2018-05-25] MEDS: SENNA/DOCUSATE TABLET PO SCH (08:52)
[2018-05-25] MEDS: BISACODYL 10 MG SUPP PR PRN ×2 (11:53→22:41)
[2018-05-25 13:33] VITALS: BP 95/63
[2018-05-25] MEDS: OXYcodone IR 5MG TABLET PO PRN ×2 (14:20→22:47)
[2018-05-25] MEDS: PANTOPROZOLE 40MG TABLET PO SCH (17:30)
[2018-05-25] MEDS: VANCOMYCIN 1,300 MG in SODIUM CHLORIDE 0.9% 250 ML IV SCH (18:17)
[2018-05-25 19:06] VITALS: BP 108/67
[2018-05-26] MEDS: SODIUM CHLORIDE 0.45% 1,000 ML IV SCH (00:33)
[2018-05-26 02:15] VITALS: BP 103/68
[2018-05-26] MEDS: METHOCARBAMOL 750 MG TABLET PO SCH ×3 (05:20→20:41)
[2018-05-26] MEDS: PIPERACILLIN/TAZO/PMX 3.375GM 50 ML IV SCH ×2 (05:20→11:51)
[2018-05-26] MEDS: PANTOPROZOLE 40MG TABLET PO SCH ×2 (05:20→17:46)
[2018-05-26 05:59] LABS: BASOPHILS # (AUTO) 0.01 x10^3/uL (0-0.1); BASOPHILS % (AUTO) 0 % (0-1); EOSINOPHILS # (AUTO) 0.23 x10^3/uL (0-0.4); EOSINOPHILS % (AUTO) 3 % (1-7); LYMPHOCYTES # (AUTO) 1.22 x10^3/uL (1-3.4); LYMPHOCYTES % (AUTO) 14 % (22-44); MD NO; MEAN CORPUSCULAR HEMOGLOBIN 29.4 pg (27.0-34.8); MEAN CORPUSCULAR VOLUME 86.4 fL (80-100); MEAN PLATELET VOLUME 7.2 fL (7.4-10.4); MONOCYTES # (AUTO) 0.79 x10^3/uL (0.2-0.8); MONOCYTES % (AUTO) 9 % (2-9); NEUTROPHILS # (AUTO) 6.79 x10^3/uL (1.8-6.8); NEUTROPHILS % (AUTO) 75 % (42-75); PLATELET COUNT 440 x10^3/uL (130-400); RED BLOOD COUNT 2.96 x10^6/uL (3.82-5.3); RED CELL DISTRIBUTION WIDTH 16.5 % (9.6-15.2)
[2018-05-26 06:04] LABS: CHLORIDE 116 mmol/L (98-107)
[2018-05-26 06:14] LABS: ALANINE AMINOTRANSFERASE 29 U/L (12-78); ALBUMIN 1.9 g/dL (3.4-5.0); ALKALINE PHOSPHATASE 73 U/L (45-117); ANION GAP 4 mmol/L (5-15); BILIRUBIN,TOTAL 0.4 mg/dL (0.2-1.0); CALCIUM 9.2 mg/dL (8.5-10.1); TOTAL PROTEIN 6.7 g/dL (6.4-8.2)
[2018-05-26] MEDS: INSULIN LISPRO 100 UNITS/ML, PEN SQ-INSULIN SCH ×4 (07:00→20:12)
[2018-05-26 07:30] VITALS: BP 102/68
[2018-05-26] MEDS ORDERED: DEXTROSE 5% 500 ML IV SCH (08:30)
[2018-05-26] MEDS: SENNA/DOCUSATE TABLET PO SCH (09:12)
[2018-05-26] MEDS: DIVALPROEX 500 MG TABLET.DR PO SCH ×2 (09:12→20:12)
[2018-05-26] MEDS: OXYcodone IR 5MG TABLET PO PRN ×2 (12:22→18:31)
[2018-05-26 13:20] VITALS: BP 114/78
[2018-05-26] MEDS: CEFTRIAXONE PMX 2GM/50ML 50 ML IV SCH (14:26)
[2018-05-26 19:33] VITALS: BP 107/70
[2018-05-26] MEDS: DOXYCYCLINE 100MG TABLET PO SCH (20:12)
[2018-05-27 01:27] VITALS: BP 106/70
[2018-05-27] MEDS: METHOCARBAMOL 750 MG TABLET PO SCH ×3 (05:12→20:49)
[2018-05-27] MEDS: PANTOPROZOLE 40MG TABLET PO SCH ×2 (05:12→17:15)
[2018-05-27 06:32] LABS: BASOPHILS # (AUTO) 0.02 x10^3/uL (0-0.1); BASOPHILS % (AUTO) 0 % (0-1); EOSINOPHILS # (AUTO) 0.23 x10^3/uL (0-0.4); EOSINOPHILS % (AUTO) 3 % (1-7); LYMPHOCYTES % (AUTO) 12 % (22-44); MD NO; MEAN CORPUSCULAR HEMOGLOBIN 29.2 pg (27.0-34.8); MEAN CORPUSCULAR HGB CONC 33.5 g/dL (32.4-35.8); MEAN CORPUSCULAR VOLUME 87.1 fL (80-100); MEAN PLATELET VOLUME 7.3 fL (7.4-10.4); MONOCYTES % (AUTO) 8 % (2-9); NEUTROPHILS # (AUTO) 7.13 x10^3/uL (1.8-6.8); NEUTROPHILS % (AUTO) 78 % (42-75); PLATELET COUNT 493 x10^3/uL (130-400); RED BLOOD COUNT 3.06 x10^6/uL (3.82-5.3); RED CELL DISTRIBUTION WIDTH 16.7 % (9.6-15.2)
[2018-05-27 06:46] VITALS: BP 102/70
[2018-05-27] MEDS: INSULIN LISPRO 100 UNITS/ML, PEN SQ-INSULIN SCH ×4 (07:00→20:11)
[2018-05-27 07:26] LABS: ALANINE AMINOTRANSFERASE 43 U/L (12-78); ALBUMIN 2.1 g/dL (3.4-5.0); ANION GAP 6 mmol/L (5-15); CALCIUM 9.6 mg/dL (8.5-10.1); CHLORIDE 115 mmol/L (98-107); CREATININE 1.02 mg/dL (0.55-1.02)
[2018-05-27 07:28] LABS: ALKALINE PHOSPHATASE 72 U/L (45-117); BILIRUBIN,TOTAL 0.2 mg/dL (0.2-1.0); TOTAL PROTEIN 7.4 g/dL (6.4-8.2)
[2018-05-27] MEDS ORDERED: SODIUM CHLORIDE 0.45% 1,000 ML IV SCH (08:00)
[2018-05-27] MEDS ORDERED: CEFTRIAXONE PMX 2GM/50ML 50 ML IV SCH (08:00)
[2018-05-27] MEDS: DIVALPROEX 500 MG TABLET.DR PO SCH ×2 (08:41→20:49)
[2018-05-27] MEDS: DOXYCYCLINE 100MG TABLET PO SCH ×2 (08:41→20:49)
[2018-05-27] MEDS: SENNA/DOCUSATE TABLET PO SCH (08:42)
[2018-05-27] MEDS ORDERED: DEXTROSE 5% 1,000 ML IV ONE (09:00)
[2018-05-27] MEDS ORDERED: DOXYCYCLINE 50 MG/5 ML ORAL SUSP PO SCH (09:00)
[2018-05-27] MEDS: OXYcodone IR 5MG TABLET PO PRN ×2 (11:25→17:20)
[2018-05-27 12:06] VITALS: BP 104/66
[2018-05-27] MEDS: CEFTRIAXONE PMX 2GM/50ML 50 ML IV SCH (13:59)
[2018-05-27 18:24] LABS: ANION GAP 5 mmol/L (5-15); CALCIUM 9.3 mg/dL (8.5-10.1); CHLORIDE 107 mmol/L (98-107)
[2018-05-27 20:47] VITALS: BP 109/76
[2018-05-28] MEDS: OXYcodone IR 5MG TABLET PO PRN ×3 (00:25→20:49)
[2018-05-28 00:27] VITALS: BP 105/71
[2018-05-28] MEDS: PANTOPROZOLE 40MG TABLET PO SCH ×2 (05:14→17:41)
[2018-05-28] MEDS: METHOCARBAMOL 750 MG TABLET PO SCH ×3 (05:14→20:49)
[2018-05-28 05:33] LABS: BASOPHILS # (AUTO) 0.01 x10^3/uL (0-0.1); BASOPHILS % (AUTO) 0 % (0-1); EOSINOPHILS # (AUTO) 0.25 x10^3/uL (0-0.4); EOSINOPHILS % (AUTO) 3 % (1-7); LYMPHOCYTES # (AUTO) 1.17 x10^3/uL (1-3.4); LYMPHOCYTES % (AUTO) 13 % (22-44); MD NO; MEAN CORPUSCULAR HEMOGLOBIN 29.2 pg (27.0-34.8); MEAN CORPUSCULAR VOLUME 85.8 fL (80-100); MEAN PLATELET VOLUME 7.2 fL (7.4-10.4); MONOCYTES # (AUTO) 0.81 x10^3/uL (0.2-0.8); MONOCYTES % (AUTO) 9 % (2-9); NEUTROPHILS # (AUTO) 6.83 x10^3/uL (1.8-6.8); NEUTROPHILS % (AUTO) 75 % (42-75); PLATELET COUNT 514 x10^3/uL (130-400); RED BLOOD COUNT 3.15 x10^6/uL (3.82-5.3); RED CELL DISTRIBUTION WIDTH 16.9 % (9.6-15.2)
[2018-05-28 05:41] LABS: CALCIUM 9.3 mg/dL (8.5-10.1); CHLORIDE 111 mmol/L (98-107)
[2018-05-28 05:45] LABS: ALBUMIN 2.1 g/dL (3.4-5.0); ANION GAP 6 mmol/L (5-15); CREATININE 1.03 mg/dL (0.55-1.02)
[2018-05-28 06:50] VITALS: BP 103/67
[2018-05-28] MEDS: INSULIN LISPRO 100 UNITS/ML, PEN SQ-INSULIN SCH ×4 (07:00→19:58)
[2018-05-28] MEDS: D5%-0.45% NACL 1,000 ML IV SCH ×2 (09:51→18:46)
[2018-05-28] MEDS: DOXYCYCLINE 100MG TABLET PO SCH ×2 (10:18→20:49)
[2018-05-28] MEDS: SENNA/DOCUSATE TABLET PO SCH (10:19)
[2018-05-28] MEDS: DIVALPROEX 500 MG TABLET.DR PO SCH ×2 (10:19→20:49)
[2018-05-28 12:13] VITALS: BP 95/66
[2018-05-28] MEDS: CEFTRIAXONE PMX 2GM/50ML 50 ML IV SCH (13:43)
[2018-05-28 18:37] LABS: ANION GAP 4 mmol/L (5-15); CALCIUM 9.2 mg/dL (8.5-10.1); CHLORIDE 108 mmol/L (98-107); CREATININE 1.01 mg/dL (0.55-1.02)
[2018-05-28 18:56] VITALS: BP 96/63
[2018-05-29 01:02] VITALS: BP 117/80
[2018-05-29] MEDS: D5%-0.45% NACL 1,000 ML IV SCH (02:00)
[2018-05-29] MEDS: PANTOPROZOLE 40MG TABLET PO SCH ×2 (05:12→16:43)
[2018-05-29] MEDS: METHOCARBAMOL 750 MG TABLET PO SCH ×3 (05:12→20:58)
[2018-05-29] MEDS: OXYcodone IR 5MG TABLET PO PRN ×3 (05:15→20:56)
[2018-05-29 06:41] VITALS: BP 94/62
[2018-05-29] MEDS ORDERED: CEFD300C37 PO ×2 (07:25)
[2018-05-29] MEDS ORDERED: DOXY100T PO ×2 (07:25)
[2018-05-29] MEDS: INSULIN LISPRO 100 UNITS/ML, PEN SQ-INSULIN SCH ×4 (07:38→21:00)
[2018-05-29 08:39] LABS: ANION GAP 4 mmol/L (5-15); CHLORIDE 112 mmol/L (98-107); CREATININE 1.05 mg/dL (0.55-1.02)
[2018-05-29] MEDS: DOXYCYCLINE 100MG TABLET PO SCH ×2 (08:41→20:58)
[2018-05-29] MEDS: CEFDINIR 300 MG CAPSULE PO SCH ×2 (08:41→20:58)
[2018-05-29] MEDS: DIVALPROEX 500 MG TABLET.DR PO SCH ×2 (08:41→20:58)
[2018-05-29 12:00] VITALS: BP 97/64
[2018-05-29] MEDS ORDERED: DEXTROSE 5% 500 ML IV SCH (14:00)
[2018-05-29 18:38] VITALS: BP 109/73
[2018-05-29] MEDS: SENNA/DOCUSATE TABLET PO SCH (20:58)
[2018-05-29] MEDS: SODIUM CHLORIDE 0.45% 1,000 ML IV SCH ×2 (21:06→23:24)
[2018-05-29 21:14] LABS: CHLORIDE,URINE RANDOM 19 mmol/L; POTASSIUM,URINE RANDOM 5 mmol/L; SODIUM,URINE RANDOM 31 mmol/L
[2018-05-29 21:50] LABS: OSMOLALITY,URINE 138 mOsm/kg (500-850)
[2018-05-29 22:03] LABS: ANION GAP 5 mmol/L (5-15); CALCIUM 9.2 mg/dL (8.5-10.1); CHLORIDE 106 mmol/L (98-107)
[2018-05-30 01:13] VITALS: BP 118/79
[2018-05-30] MEDS: OXYcodone IR 5MG TABLET PO PRN ×3 (03:05→19:13)
[2018-05-30] MEDS: METHOCARBAMOL 750 MG TABLET PO SCH ×3 (06:19→21:11)
[2018-05-30] MEDS: PANTOPROZOLE 40MG TABLET PO SCH ×2 (06:19→16:33)
[2018-05-30 06:35] VITALS: BP 96/65
[2018-05-30] MEDS: DIVALPROEX 500 MG TABLET.DR PO SCH ×2 (08:30→21:11)
[2018-05-30] MEDS: DOXYCYCLINE 100MG TABLET PO SCH ×2 (08:30→21:11)
[2018-05-30] MEDS: CEFDINIR 300 MG CAPSULE PO SCH ×2 (08:30→21:11)
[2018-05-30] MEDS: SENNA/DOCUSATE TABLET PO SCH (08:31)
[2018-05-30 08:33] LABS: BASOPHILS # (AUTO) 0.03 x10^3/uL (0-0.1); BASOPHILS % (AUTO) 0 % (0-1); EOSINOPHILS # (AUTO) 0.18 x10^3/uL (0-0.4); EOSINOPHILS % (AUTO) 2 % (1-7); LYMPHOCYTES # (AUTO) 1.36 x10^3/uL (1-3.4); LYMPHOCYTES % (AUTO) 17 % (22-44); MD NO; MEAN CORPUSCULAR HEMOGLOBIN 27.7 pg (27.0-34.8); MEAN CORPUSCULAR HGB CONC 32.3 g/dL (32.4-35.8); MEAN CORPUSCULAR VOLUME 85.9 fL (80-100); MEAN PLATELET VOLUME 7.1 fL (7.4-10.4); MONOCYTES # (AUTO) 0.59 x10^3/uL (0.2-0.8); MONOCYTES % (AUTO) 7 % (2-9); NEUTROPHILS # (AUTO) 5.81 x10^3/uL (1.8-6.8); NEUTROPHILS % (AUTO) 73 % (42-75); PLATELET COUNT 574 x10^3/uL (130-400); RED BLOOD COUNT 3.34 x10^6/uL (3.82-5.3); RED CELL DISTRIBUTION WIDTH 16.6 % (9.6-15.2)
[2018-05-30 08:40] LABS: ALBUMIN 2.1 g/dL (3.4-5.0); ANION GAP 4 mmol/L (5-15); CALCIUM 9.6 mg/dL (8.5-10.1); CHLORIDE 110 mmol/L (98-107); CREATININE 0.96 mg/dL (0.55-1.02)
[2018-05-30] MEDS: INSULIN LISPRO 100 UNITS/ML, PEN SQ-INSULIN SCH ×4 (09:24→21:11)
[2018-05-30] MEDS ORDERED: DESMOPRESSIN NASAL SPRAY 0.1MG/ML, 5ML NAS ONE (10:00)
[2018-05-30 12:44] LABS: OSMOLALITY,URINE 180 mOsm/kg (500-850)
[2018-05-30 13:31] VITALS: BP_SYST 101; BP_SYST 119; BP_DIAS 67; BP_DIAS 78
[2018-05-30 18:02] LABS: OSMOLALITY,URINE 183 mOsm/kg (500-850)
[2018-05-30 19:25] VITALS: BP 106/68
[2018-05-31] MEDS: OXYcodone IR 5MG TABLET PO PRN ×2 (01:49→18:26)
[2018-05-31] MEDS: PANTOPROZOLE 40MG TABLET PO SCH ×2 (05:12→18:26)
[2018-05-31] MEDS: METHOCARBAMOL 750 MG TABLET PO SCH ×3 (05:12→20:19)
[2018-05-31 06:39] VITALS: BP 97/66
[2018-05-31] MEDS: INSULIN LISPRO 100 UNITS/ML, PEN SQ-INSULIN SCH ×4 (07:00→20:20)
[2018-05-31 07:25] VITALS: BP 108/62
[2018-05-31 08:32] LABS: ALBUMIN 2.3 g/dL (3.4-5.0); ANION GAP 7 mmol/L (5-15); CALCIUM 9.7 mg/dL (8.5-10.1); CHLORIDE 107 mmol/L (98-107); CREATININE 1.07 mg/dL (0.55-1.02)
[2018-05-31] MEDS: DOXYCYCLINE 100MG TABLET PO SCH ×2 (08:39→20:18)
[2018-05-31] MEDS: SENNA/DOCUSATE TABLET PO SCH (08:41)
[2018-05-31] MEDS: DIVALPROEX 500 MG TABLET.DR PO SCH ×2 (08:41→20:19)
[2018-05-31] MEDS: HYDROCHLOROTHIAZIDE 12.5 MG CAPSULE PO SCH (11:20)
[2018-05-31 13:30] VITALS: BP 96/70
[2018-05-31] MEDS: CEFDINIR 300 MG CAPSULE PO SCH ×2 (13:35→20:18)
[2018-05-31 18:52] VITALS: BP 93/63
[2018-06-01 01:44] VITALS: BP 106/62
[2018-06-01 05:47] LABS: ALBUMIN 2.4 g/dL (3.4-5.0); ANION GAP 7 mmol/L (5-15); CHLORIDE 101 mmol/L (98-107)
[2018-06-01 05:48] LABS: CREATININE 1.13 mg/dL (0.55-1.02)
[2018-06-01] MEDS: PANTOPROZOLE 40MG TABLET PO SCH ×2 (06:36→17:31)
[2018-06-01] MEDS: METHOCARBAMOL 750 MG TABLET PO SCH ×3 (06:36→20:13)
[2018-06-01] MEDS: INSULIN LISPRO 100 UNITS/ML, PEN SQ-INSULIN SCH ×4 (07:00→20:14)
[2018-06-01 07:25] VITALS: BP 97/68
[2018-06-01] MEDS: DIVALPROEX 500 MG TABLET.DR PO SCH ×2 (08:04→20:13)
[2018-06-01] MEDS: HYDROCHLOROTHIAZIDE 12.5 MG CAPSULE PO SCH (08:04)
[2018-06-01] MEDS: CEFDINIR 300 MG CAPSULE PO SCH ×2 (08:04→20:13)
[2018-06-01] MEDS: DOXYCYCLINE 100MG TABLET PO SCH ×2 (08:05→20:14)
[2018-06-01] MEDS: SENNA/DOCUSATE TABLET PO SCH (08:05)
[2018-06-01] MEDS: OXYcodone IR 5MG TABLET PO PRN ×2 (10:13→20:13)
[2018-06-01] MEDS ORDERED: HYDR12.517 PO (10:36)
[2018-06-01 14:00] VITALS: BP 102/69
[2018-06-01 19:10] VITALS: BP 105/70
[2018-06-01] MEDS ORDERED: ONDANSETRON 2MG/ML, 2ML ONE (19:50)
[2018-06-01] MEDS: ONDANSETRON 2MG/ML, 2ML IVPush PRN (19:53)
[2018-06-02 02:27] VITALS: BP 90/63
[2018-06-02] MEDS: PANTOPROZOLE 40MG TABLET PO SCH ×2 (05:18→17:59)
[2018-06-02] MEDS: METHOCARBAMOL 750 MG TABLET PO SCH ×3 (05:18→21:35)
[2018-06-02 05:25] LABS: ANION GAP 9 mmol/L (5-15); CALCIUM 9.8 mg/dL (8.5-10.1); CHLORIDE 102 mmol/L (98-107)
[2018-06-02 05:26] LABS: CREATININE 1.26 mg/dL (0.55-1.02)
[2018-06-02] MEDS: INSULIN LISPRO 100 UNITS/ML, PEN SQ-INSULIN SCH ×4 (07:00→21:40)
[2018-06-02 07:25] VITALS: BP 100/68
[2018-06-02] MEDS: HYDROCHLOROTHIAZIDE 12.5 MG CAPSULE PO SCH ×2 (09:00→11:52)
[2018-06-02] MEDS: SENNA/DOCUSATE TABLET PO SCH (09:00)
[2018-06-02] MEDS: DIVALPROEX 500 MG TABLET.DR PO SCH ×2 (09:22→21:35)
[2018-06-02] MEDS: OXYcodone IR 5MG TABLET PO PRN (13:06)
[2018-06-02 14:00] VITALS: BP 91/58
[2018-06-02 18:52] VITALS: BP 95/56
[2018-06-03] MEDS ORDERED: HYDROCORTISONE CRM 1%, 30GM TP ONE (00:30)
[2018-06-03] MEDS ORDERED: HYDROCORTISONE OINT 1%, 28GM TP ONE (00:30)
[2018-06-03 02:08] VITALS: BP 95/67
[2018-06-03 05:20] LABS: ALBUMIN 2.7 g/dL (3.4-5.0); ANION GAP 8 mmol/L (5-15); CHLORIDE 102 mmol/L (98-107)
[2018-06-03 05:21] LABS: CREATININE 1.21 mg/dL (0.55-1.02)
[2018-06-03] MEDS: METHOCARBAMOL 750 MG TABLET PO SCH ×3 (06:35→21:31)
[2018-06-03] MEDS: PANTOPROZOLE 40MG TABLET PO SCH ×2 (06:35→18:14)
[2018-06-03] MEDS: INSULIN LISPRO 100 UNITS/ML, PEN SQ-INSULIN SCH ×4 (07:00→21:27)
[2018-06-03 08:51] VITALS: BP 99/64
[2018-06-03 08:53] VITALS: BP 99/64
[2018-06-03] MEDS ORDERED: POTASSIUM CHLORIDE 20 MEQ TAB.ER.PRT PO ONE (09:00)
[2018-06-03] MEDS: SENNA/DOCUSATE TABLET PO SCH (09:00)
[2018-06-03] MEDS: DIVALPROEX 500 MG TABLET.DR PO SCH ×2 (09:43→21:31)
[2018-06-03] MEDS: OXYcodone IR 5MG TABLET PO PRN ×3 (11:28→21:31)
[2018-06-03] MEDS: HYDROCHLOROTHIAZIDE 12.5 MG CAPSULE PO SCH (11:28)
[2018-06-03] MEDS: POTASSIUM CHLORIDE 10 MEQ TABLET.ER PO SCH (12:09)
[2018-06-03 14:13] VITALS: BP 107/75
[2018-06-03] MEDS: ONDANSETRON 2MG/ML, 2ML IVPush PRN (14:24)
[2018-06-03] MEDS ORDERED: PALIPERIDONE PALMITATE 156 MG/ML IM ONE (15:00)
[2018-06-03 20:16] VITALS: BP 110/77
[2018-06-04 03:59] VITALS: BP 102/74
[2018-06-04 05:16] LABS: BASOPHILS # (AUTO) 0.03 x10^3/uL (0-0.1); BASOPHILS % (AUTO) 0 % (0-1); EOSINOPHILS # (AUTO) 0.17 x10^3/uL (0-0.4); EOSINOPHILS % (AUTO) 2 % (1-7); LYMPHOCYTES # (AUTO) 1.63 x10^3/uL (1-3.4); LYMPHOCYTES % (AUTO) 21 % (22-44); MD NO; MEAN CORPUSCULAR HEMOGLOBIN 28.6 pg (27.0-34.8); MEAN CORPUSCULAR HGB CONC 33.3 g/dL (32.4-35.8); MEAN CORPUSCULAR VOLUME 85.7 fL (80-100); MEAN PLATELET VOLUME 8.4 fL (7.4-10.4); MONOCYTES # (AUTO) 0.78 x10^3/uL (0.2-0.8); MONOCYTES % (AUTO) 10 % (2-9); NEUTROPHILS # (AUTO) 5.07 x10^3/uL (1.8-6.8); NEUTROPHILS % (AUTO) 66 % (42-75); PLATELET COUNT 518 x10^3/uL (130-400); RED BLOOD COUNT 3.71 x10^6/uL (3.82-5.3); RED CELL DISTRIBUTION WIDTH 16.8 % (9.6-15.2)
[2018-06-04 05:26] LABS: ALBUMIN 2.6 g/dL (3.4-5.0); ANION GAP 5 mmol/L (5-15); CALCIUM 9.8 mg/dL (8.5-10.1); CHLORIDE 104 mmol/L (98-107)
[2018-06-04 06:36] VITALS: BP 106/66
[2018-06-04] MEDS: METHOCARBAMOL 750 MG TABLET PO SCH ×2 (06:41→13:09)
[2018-06-04] MEDS: PANTOPROZOLE 40MG TABLET PO SCH (06:41)
[2018-06-04] MEDS: INSULIN LISPRO 100 UNITS/ML, PEN SQ-INSULIN SCH ×3 (07:00→16:00)
[2018-06-04] MEDS: SENNA/DOCUSATE TABLET PO SCH (09:00)
[2018-06-04] MEDS: POTASSIUM CHLORIDE 10 MEQ TABLET.ER PO SCH (09:44)
[2018-06-04] MEDS: HYDROCHLOROTHIAZIDE 12.5 MG CAPSULE PO SCH (09:44)
[2018-06-04] MEDS: DIVALPROEX 500 MG TABLET.DR PO SCH (09:44)
[2018-06-04] MEDS: OXYcodone IR 5MG TABLET PO PRN (13:08)
[2018-06-04 13:50] VITALS: BP 87/65
[2018-06-04] MEDS ORDERED: POTA10TA5 PO (15:19)
[2018-06-04 16:11] VITALS: BP 101/68
[2018-06-04] MEDS ORDERED: CEPH-368 PO (16:20)
== END 2018-06-04 17:10 | disposition home health service (06) | DRG 453 ==
LOC: ORIP 05:49 → EDSTATUS 08:00 → 4NOR 12:56 → 5SO 05-21 19:59 → 4NOR 05-23 18:05 → 5SO 05-24 16:01 → 4NOR 05-31 01:20 → DCLOUNGE 06-04 17:06
PROVIDERS: ADMIT Orthopaedic Surgery Orthopaedic Surgery of the Spine; ATTEND Orthopaedic Surgery Orthopaedic Surgery of the Spine
PROC: 0SG0071 Fusion of Lumbar Vertebral Joint with Autologous Tissue Substitute, Posterior Approach, Posterior Column, Open Approach (ICD-10-PCS; 2018-05-17)
PROC: 0ST20ZZ Resection of Lumbar Vertebral Disc, Open Approach (ICD-10-PCS; 2018-05-17)
PROC: 4A11X4G Monitoring of Peripheral Nervous Electrical Activity, Intraoperative, External Approach (ICD-10-PCS; 2018-05-17)
PROC: 07DR3ZZ Extraction of Iliac Bone Marrow, Percutaneous Approach (ICD-10-PCS; 2018-05-17)
PROC: 0SG00AJ Fusion of Lumbar Vertebral Joint with Interbody Fusion Device, Posterior Approach, Anterior Column, Open Approach (ICD-10-PCS; principal; 2018-05-17 08:00)
DX: M48.061 Spinal stenosis, lumbar region without neurogenic claudication (principal); A41.9 Sepsis, unspecified organism; J18.9 Pneumonia, unspecified organism; E43 Unspecified severe protein-calorie malnutrition; R65.20 Severe sepsis without septic shock; D62 Acute posthemorrhagic anemia; E87.1 Hypo-osmolality and hyponatremia; E87.0 Hyperosmolality and hypernatremia; N17.9 Acute kidney failure, unspecified; N25.1 Nephrogenic diabetes insipidus; M43.16 Spondylolisthesis, lumbar region; M47.26 Other spondylosis with radiculopathy, lumbar region; M51.16 Intervertebral disc disorders with radiculopathy, lumbar region; N18.3 Chronic kidney disease, stage 3 (moderate); K21.9 Gastro-esophageal reflux disease without esophagitis; K59.00 Constipation, unspecified; G47.33 Obstructive sleep apnea (adult) (pediatric); F31.9 Bipolar disorder, unspecified; G30.9 Alzheimer's disease, unspecified; F02.80 Dementia in other diseases classified elsewhere, unspecified severity, without behavioral disturbance, psychotic disturbance, mood disturbance, and anxiety; E11.22 Type 2 diabetes mellitus with diabetic chronic kidney disease; E78.5 Hyperlipidemia, unspecified; E86.0 Dehydration; Z79.899 Other long term (current) drug therapy; Z82.0 Family history of epilepsy and other diseases of the nervous system
CPT/HCPCS: 36415; 71045; 71275; 72100; 78452; 80048; 80053; 80061; 80069; 81003; 82040; 82436; 82962; 83605; 83735; 83935; 84100; 84133; 84145; 84295; 84300; 84484; 85025; 85379; 87040; 93005; 93017; C1713; G0378; J0690; J0696; J1100; J1885; J2250; J2270; J2405; J2543; J2704; J2785; J3010; J3370; J3490; J7070; Q9967; A9502; C1760; C1762; C1763; C9113; C9362; C9898; J0330; J1815; J2370; J2426; J2800; J3480; J7030; J7050; J7060; J7120

== ENCOUNTER 2018-07-27 08:37 | Inpatient (IN) | payer MEDICARE ==
[~2018-07-27] VITALS: Ht 154.9 cm; Wt 65.8 kg
[~2018-07-27 08:37] MED LIST changes: +CEFD300C37 PO; +CEPH-368 PO; +DOXY100T PO; +HYDR12.517 PO; +METH750T2 PO; +OXYC5TAB3 PO; +POTA10TA5 PO
--- NOTE | 2018-07-27 08:53 | NUR ---
Patient brought in by EMS for intermittent chest pain x3 days, worsening this morning upon waking. Patient states pressure was temporarily relieved after taking one of her 's sublingual nitroglycerin prior to EMS arrival. Patient also took 324mg aspirin prior to EMS arrival. IV started by EMS, zofran 4mg administered IV push by EMS. Patient arrives alert and appropriate, does not appear to be in acute distress at this time. Continuous blood pressure, SPO2 and cardiac monitoring in place, call barry within reach. Bedside report to Ramesh Bolanos RN.
--- NOTE | 2018-07-27 08:59 | NUR ---
REPORT FROM BALBIR HARRINGTON. PATIENT RESTING COMFORTABLY ON GURNEY SINUS/SINUS TACH ON THE MONITOR. REPORTS CHEST PAIN RESOLUTION TO 2/10 REPORTS HX OF GERD WITH TERESAILIADaren [facility] AT BEDSIDE OBTAINING LABS MED [facility] COMPLETED UPDATED ON ESTIMATED POC CALL DICKEY IN HAND/SIDE RAILS UP
[2018-07-27 09:29] LABS: BASOPHILS # (AUTO) 0.04 x10^3/uL (0-0.1); BASOPHILS % (AUTO) 1 % (0-1); EOSINOPHILS # (AUTO) 0.13 x10^3/uL (0-0.4); EOSINOPHILS % (AUTO) 2 % (1-7); LYMPHOCYTES % (AUTO) 21 % (22-44); MD NO; MEAN CORPUSCULAR HEMOGLOBIN 27.2 pg (27.0-34.8); MEAN CORPUSCULAR HGB CONC 31.5 g/dL (32.4-35.8); MEAN CORPUSCULAR VOLUME 86.2 fL (80-100); MEAN PLATELET VOLUME 7.3 fL (7.4-10.4); MONOCYTES # (AUTO) 0.69 x10^3/uL (0.2-0.8); MONOCYTES % (AUTO) 10 % (2-9); NEUTROPHILS # (AUTO) 4.48 x10^3/uL (1.8-6.8); NEUTROPHILS % (AUTO) 67 % (42-75); PLATELET COUNT 395 x10^3/uL (130-400); RED CELL DISTRIBUTION WIDTH 17.1 % (9.6-15.2)
[2018-07-27 09:38] LABS: ALANINE AMINOTRANSFERASE 18 U/L (12-78); ALBUMIN 2.9 g/dL (3.4-5.0); ANION GAP 8 mmol/L (5-15); CALCIUM 8.9 mg/dL (8.5-10.1); CHLORIDE 107 mmol/L (98-107); CREATININE 1.05 mg/dL (0.55-1.02)
[2018-07-27 09:43] LABS: ALKALINE PHOSPHATASE 77 U/L (45-117); BILIRUBIN,TOTAL 0.2 mg/dL (0.2-1.0); TOTAL PROTEIN 7.2 g/dL (6.4-8.2); TROPONIN I < 0.015 ng/mL (0.000-0.045)
--- NOTE | 2018-07-27 10:21 | NUR ---
TASK RN: PIV ESTABLISHED. LEFT AC. CT AWARE.
--- NOTE | 2018-07-27 10:40 | NUR ---
TO CT SCAN. CONTINUES TO REPORT RESOLUTION IN PAIN (CHEST PRESSURE AT 1/10). STATES "I THINK IT IS MY GERD." UPDATED ON POC (WAITING ON TESTING RESULTS) AT BEDSIDE
--- NOTE | 2018-07-27 11:03 | NUR ---
PATIENT GIVEN PO FLUIDS AFTER CLARIFICATION WITH MD. PROVIDER TO UPDATE PATIENT ON PLAN (POSSIBLE ADMIT) ONCE CT SCAN RESULTED D/T HX AND NEED FOR O2 HERE IN ER- CLARIFIED WITH PROVIDER THAT PATIENT UTILIZED O2 EVERY NIGHT
[2018-07-27] MEDS ORDERED: OMNIPAQUE 350 MG/ML, 100ML BOTTLE ONE (11:04)
--- NOTE | 2018-07-27 11:40 | NUR ---
ct called to expedite result-no answer
--- NOTE | 2018-07-27 13:02 | NUR ---
Ct scan called again in regard to pending CTA result. test technician reports delay on reads; blog writer asked to expedite patient's exam. test technician to inform radiologist
[2018-07-27 13:31] VITALS: BP 112/78
[2018-07-27] MEDS ORDERED: hydrALAzine 20 MG/ML, 1ML IVPush PRN (14:30)
[2018-07-27] MEDS ORDERED: ONDANSETRON 2MG/ML, 2ML IVPush PRN (14:30)
[2018-07-27] MEDS ORDERED: MAALOX/HYOSCYAMINE/LIDOCAINE 45 ML BTL PO PRN (14:30)
[2018-07-27] MEDS ORDERED: LABETALOL 5MG/ML, 20ML IVPush PRN (14:30)
[2018-07-27] MEDS ORDERED: BISACODYL 10 MG SUPP PR PRN (14:30)
[2018-07-27] MEDS ORDERED: MAALOX/HYOSCYAMINE/LIDOCAINE 45 ML BTL PO ONE (14:30)
[2018-07-27] MEDS ORDERED: OXYcodone IR 5MG TABLET PO PRN (14:30)
[2018-07-27] MEDS ORDERED: POLYETHYLENE GLYCOL 17 GM PACKET PO PRN (14:30)
[2018-07-27] MEDS: DOCUSATE 100 MG CAPSULE PO SCH ×2 (14:30→20:10)
[2018-07-27] MEDS ORDERED: DIVALPROEX 500 MG TABLET.DR PO ONE (15:00)
[2018-07-27] MEDS: ACETAMINOPHEN 500 MG TABLET PO SCH ×2 (15:01→21:29)
[2018-07-27] MEDS: HEPARIN 5,000 UNITS/ML, 1ML SQ SCH ×2 (15:01→23:20)
[2018-07-27 16:17] LABS: % IRON SATURATION 16 % (20-55); IRON LEVEL 57 mcg/dL (50-170); T4 (THYROXINE) 7.8 mcg/dL (4.8-13.9); TOTAL IRON BINDING CAPACITY 350 mcg/dL (250-450)
[2018-07-27 16:21] LABS: TRANSFERRIN 234 mg/dL (200-360); TROPONIN I < 0.015 ng/mL (0.000-0.045)
[2018-07-27 16:27] LABS: THYROID STIMULATING HORMONE 0.969 mIU/L (0.358-3.740)
[2018-07-27 16:30] LABS: HEMOGLOBIN A1C 6.5 % (4.2-6.3)
[2018-07-27 18:48] VITALS: BP 104/74
[2018-07-27 19:05] LABS: TROPONIN I < 0.015 ng/mL (0.000-0.045)
[2018-07-27] MEDS: DIVALPROEX 500 MG TABLET.DR PO SCH (20:11)
[2018-07-28 01:57] VITALS: BP 105/68
[2018-07-28 03:53] LABS: BASOPHILS # (AUTO) 0.03 x10^3/uL (0-0.1); BASOPHILS % (AUTO) 0 % (0-1); EOSINOPHILS # (AUTO) 0.15 x10^3/uL (0-0.4); EOSINOPHILS % (AUTO) 2 % (1-7); LYMPHOCYTES # (AUTO) 1.36 x10^3/uL (1-3.4); LYMPHOCYTES % (AUTO) 20 % (22-44); MD NO; MEAN CORPUSCULAR HGB CONC 32.2 g/dL (32.4-35.8); MEAN PLATELET VOLUME 7.9 fL (7.4-10.4); MONOCYTES # (AUTO) 0.69 x10^3/uL (0.2-0.8); MONOCYTES % (AUTO) 10 % (2-9); NEUTROPHILS # (AUTO) 4.55 x10^3/uL (1.8-6.8); NEUTROPHILS % (AUTO) 67 % (42-75); PLATELET COUNT 411 x10^3/uL (130-400); RED BLOOD COUNT 4.05 x10^6/uL (3.82-5.3)
[2018-07-28 04:04] LABS: ANION GAP 7 mmol/L (5-15); CALCIUM 9.6 mg/dL (8.5-10.1); CHLORIDE 107 mmol/L (98-107); CREATININE 1.16 mg/dL (0.55-1.02)
[2018-07-28] MEDS: HEPARIN 5,000 UNITS/ML, 1ML SQ SCH ×3 (06:30→22:49)
[2018-07-28 07:59] VITALS: BP 125/78
[2018-07-28] MEDS: OMEPRAZOLE 20 MG CAPSULE.DR PO SCH (08:30)
[2018-07-28] MEDS: DOCUSATE 100 MG CAPSULE PO SCH ×2 (08:30→20:37)
[2018-07-28] MEDS: ACETAMINOPHEN 500 MG TABLET PO SCH ×3 (08:31→20:37)
[2018-07-28] MEDS: ONDANSETRON ODT 4 MG PO PRN ×2 (08:31→23:09)
[2018-07-28] MEDS: DIVALPROEX 500 MG TABLET.DR PO SCH ×3 (08:31→11:21)
[2018-07-28 12:57] LABS: MICROSCOPIC NOT IND
[2018-07-28 13:00] LABS: CULTURE INDICATED? NO
[2018-07-28 14:35] VITALS: BP 108/75
[2018-07-28 19:09] VITALS: BP 98/60
[2018-07-28] MEDS ORDERED: DIVALPROEX 500 MG TABLET.DR PO ONE (21:00)
[2018-07-28] MEDS ORDERED: ALUMINUM/MAG/SIMETHICONE 30 ML UDC PO PRN (23:00)
[2018-07-29 01:12] VITALS: BP 103/70
[2018-07-29] MEDS: HEPARIN 5,000 UNITS/ML, 1ML SQ SCH ×2 (06:43→14:30)
[2018-07-29 07:20] VITALS: BP 105/66
[2018-07-29] MEDS: DOCUSATE 100 MG CAPSULE PO SCH (09:00)
[2018-07-29] MEDS ORDERED: SUCR1TAB33 PO (09:09)
[2018-07-29] MEDS ORDERED: OMEP40CA6 PO (09:09)
[2018-07-29] MEDS ORDERED: LIDOCAINE-MPF 1%, 5ML ONE (10:16)
[2018-07-29] MEDS: OMEPRAZOLE 20 MG CAPSULE.DR PO SCH (10:18)
[2018-07-29] MEDS: ACETAMINOPHEN 500 MG TABLET PO SCH ×2 (10:18→16:18)
[2018-07-29] MEDS: DIVALPROEX 500 MG TABLET.DR PO SCH (12:05)
[2018-07-29 13:57] VITALS: BP 121/79
== END 2018-07-29 18:00 | disposition home or self-care (01) | DRG 205 ==
LOC: ED 10:30 → EDIP 12:32 → OBSVTOIN 12:32 → INTOOBSV 12:32 → 5SO 13:19
PROVIDERS: ADMIT Internal Medicine; ATTEND Internal Medicine
PROC: 5A09357 Assistance with Respiratory Ventilation, Less than 24 Consecutive Hours, Continuous Positive Airway Pressure (ICD-10-PCS; principal; 2018-07-28)
PROC: 0GBH3ZX Excision of Right Thyroid Gland Lobe, Percutaneous Approach, Diagnostic (ICD-10-PCS; 2018-07-29)
DX: M94.0 Chondrocostal junction syndrome [Tietze] (principal); E43 Unspecified severe protein-calorie malnutrition; J96.21 Acute and chronic respiratory failure with hypoxia; I12.9 Hypertensive chronic kidney disease with stage 1 through stage 4 chronic kidney disease, or unspecified chronic kidney disease; E04.2 Nontoxic multinodular goiter; E11.22 Type 2 diabetes mellitus with diabetic chronic kidney disease; T14.8XXA Other injury of unspecified body region, initial encounter; E78.00 Pure hypercholesterolemia, unspecified; E78.5 Hyperlipidemia, unspecified; F02.80 Dementia in other diseases classified elsewhere, unspecified severity, without behavioral disturbance, psychotic disturbance, mood disturbance, and anxiety; F31.9 Bipolar disorder, unspecified; G30.9 Alzheimer's disease, unspecified; G47.33 Obstructive sleep apnea (adult) (pediatric); I48.91 Unspecified atrial fibrillation; J44.9 Chronic obstructive pulmonary disease, unspecified; G89.29 Other chronic pain; F99 Mental disorder, not otherwise specified; I49.9 Cardiac arrhythmia, unspecified; D63.8 Anemia in other chronic diseases classified elsewhere; X58.XXXA Exposure to other specified factors, initial encounter; K21.9 Gastro-esophageal reflux disease without esophagitis; K59.00 Constipation, unspecified; N18.3 Chronic kidney disease, stage 3 (moderate); R32 Unspecified urinary incontinence; Z82.49 Family history of ischemic heart disease and other diseases of the circulatory system; Z80.0 Family history of malignant neoplasm of digestive organs; Z87.01 Personal history of pneumonia (recurrent); Z87.891 Personal history of nicotine dependence; Z98.1 Arthrodesis status; Z68.27 Body mass index [BMI] 27.0-27.9, adult; Z91.013 Allergy to seafood; Z88.8 Allergy status to other drugs, medicaments and biological substances; Y93.89 Activity, other specified; Y92.89 Other specified places as the place of occurrence of the external cause; Y99.8 Other external cause status
CPT/HCPCS: 10005; 36415; 71045; 71275; 76536; 80048; 80053; 81003; 82728; 83036; 83540; 83550; 83690; 83735; 83880; 84436; 84443; 84466; 84484; 85025; 85379; 88172; 88173; 93005; 99285; G0378; J1644; J2405; Q0162; Q9967

== ENCOUNTER 2018-10-04 10:38 | Outpatient (CLI) | payer MEDICARE | END 2018-10-04 23:59 | disposition home or self-care (01) | LOC: CFH 10:38 | PROVIDERS: ATTEND Internal Medicine Nephrology | DX: N20.0 Calculus of kidney (principal) | CPT/HCPCS: 76770 ==

== ENCOUNTER 2019-01-17 11:54 | Emergency (ER) | payer MEDICARE ==
[~2019-01-17] VITALS: Ht 154.9 cm; Wt 65.9 kg
[~2019-01-17 11:54] MED LIST changes: +OMEP40CA42 PO; -OMEP40CA6 PO; +SUCR1TAB33 PO; -TIZA4TAB PO; +TIZA4TAB2 PO
[2019-01-17 12:03] VITALS: BP 115/71
--- NOTE | 2019-01-17 12:05 | NUR ---
JENSEN MCDONNELL FROM [facility] AFTER PT STATES SHE HAD PLAN TO TAKE 14 PILLS 10 MG AMBIEN. PLAN TO OD. PT GAVE PILLS TO HER BUT CONTINUES TO FEEL SUICIDAL AND FEELS LIKE SHE WILL GO THROUGH WITH IT. PT HAS HX SI W/ SA ON BUPROPRIONE. PERSONAL BELONGINGS (2 OF 2) PLACED IN SECURE LOCKER. ROOM SECURED. SITTER AT BEDSIDE.
--- NOTE | 2019-01-17 12:24 | NUR ---
UA COLLECTED, LABELED, AND WALKED TO LAB.
[2019-01-17 13:13] LABS: BASOPHILS # (AUTO) 0.01 x10^3/uL (0-0.1); BASOPHILS % (AUTO) 0 % (0-1); EOSINOPHILS # (AUTO) 0.04 x10^3/uL (0-0.4); EOSINOPHILS % (AUTO) 1 % (1-7); LYMPHOCYTES # (AUTO) 1.21 x10^3/uL (1-3.4); LYMPHOCYTES % (AUTO) 17 % (22-44); MD NO; MEAN CORPUSCULAR HEMOGLOBIN 29.2 pg (27.0-34.8); MEAN CORPUSCULAR HGB CONC 33.3 g/dL (32.4-35.8); MEAN CORPUSCULAR VOLUME 87.9 fL (80-100); MEAN PLATELET VOLUME 8.7 fL (7.4-10.4); MONOCYTES # (AUTO) 0.69 x10^3/uL (0.2-0.8); MONOCYTES % (AUTO) 10 % (2-9); NEUTROPHILS % (AUTO) 72 % (42-75); PLATELET COUNT 252 x10^3/uL (130-400); RED BLOOD COUNT 4.59 x10^6/uL (3.82-5.3); RED CELL DISTRIBUTION WIDTH 16.8 % (9.6-15.2)
[2019-01-17 13:14] LABS: ALBUMIN 3.2 g/dL (3.4-5.0); ANION GAP 4 mmol/L (5-15); CALCIUM 9.7 mg/dL (8.5-10.1); CHLORIDE 112 mmol/L (98-107); CREATININE 0.93 mg/dL (0.55-1.02)
[2019-01-17 13:15] LABS: SALICYLATE LEVEL < 1.7 mg/dL (2.8-20.0)
[2019-01-17 13:16] LABS: CULTURE INDICATED? NO; MICROSCOPIC AUTO
[2019-01-17 13:19] LABS: TROPONIN I < 0.015 ng/mL (0.000-0.045)
[2019-01-17 13:23] LABS: AMPHETAMINE SCREEN, URINE Negative (Negative); BARBITURATE SCREEN, URINE Negative (Negative); BENZODIAZEPINE SCREEN, URINE Negative (Negative); CANNABINOID SCREEN, URINE Negative (Negative); COCAINE SCREEN, URINE Negative (Negative); METHADONE SCREEN, URINE Negative (Negative); OPIATE SCREEN, URINE Negative (Negative)
--- NOTE | 2019-01-17 14:06 | NUR ---
PT PROVIDED W/ SI LUNCH TRAY. SITTER REMAINS AT BEDSIDE. ROOM REMAINS SECURE.
--- NOTE | 2019-01-17 14:44 | NUR ---
SPOKE W/ TELEPSYCH MD WHO WILL EVALUATE PT.
--- NOTE | 2019-01-17 14:45 | NUR ---
I AM ASSUMING CARE OF THIS PT FROM TEODORA (RN) WHILE SHE ENJOYS A LUNCH BREAK. SBAR REPORT WAS EXCHANGED AT THE BEDSIDE.
--- NOTE | 2019-01-17 15:30 | NUR ---
TELEPSYCH MD RECOMMENDS INPATIENT AND WILL SEND OVER MED RECOMMENDATIONS.
--- NOTE | 2019-01-17 16:25 | NUR ---
PT PROVIDED W/ SI DINNER TRAY. SITTER REMAINS AT BEDSIDE. ROOM REMAINS SECURE.
[2019-01-17] MEDS ORDERED: LORazepam 1MG TABLET PO ONE (18:00)
[2019-01-17] MEDS ORDERED: LORazepam 1MG TABLET ONE (18:12)
[2019-01-18] MEDS ORDERED: DIVA500T4 PO (02:26)
[2019-01-18] MEDS ORDERED: ATOR20TA86 PO (02:26)
[2019-01-18] MEDS ORDERED: METH750T87 PO (02:26)
[2019-01-18] MEDS ORDERED: DIVA250T PO (02:26)
== END 2019-01-17 18:34 ==
LOC: ED 13:14
DX: R45.851 Suicidal ideations (principal); R07.9 Chest pain, unspecified; F29 Unspecified psychosis not due to a substance or known physiological condition; E78.00 Pure hypercholesterolemia, unspecified; K21.9 Gastro-esophageal reflux disease without esophagitis; F31.9 Bipolar disorder, unspecified
CPT/HCPCS: 36415; 71045; 80048; 80307; 81001; 82040; 84484; 85025; 93005; 99285

== ENCOUNTER 2019-01-17 17:43 | Inpatient (IN) | payer MEDICARE ==
[~2019-01-17] VITALS: Ht 154.9 cm; Wt 60.2 kg
[2019-01-17] MEDS ORDERED: BISACODYL 10 MG SUPP PR PRN (18:00)
[2019-01-17 18:33] VITALS: BP 111/79
[2019-01-17 19:32] VITALS: BP 104/70
[2019-01-17] MEDS ORDERED: DIVALPROEX 250 MG TAB.ER.24H PO SCH ×2 (21:00→22:18)
[2019-01-17] MEDS ORDERED: DIVALPROEX 500 MG TAB.ER.24H PO SCH ×2 (21:00→22:18)
[2019-01-17] MEDS ORDERED: MELATONIN 3 MG TABLET PO SCH (21:00)
[2019-01-17] MEDS: ATORVASTATIN 20 MG TABLET PO SCH (21:18)
[2019-01-17] MEDS: METHOCARBAMOL 750 MG TABLET PO SCH (21:18)
[2019-01-17] MEDS ORDERED: PLEASE ENTER HEIGHT AND WEIGHT MC SCH (22:30)
[2019-01-18 01:13] VITALS: BP 111/79
[2019-01-18] MEDS ORDERED: METH750T87 PO (02:26)
[2019-01-18] MEDS ORDERED: DIVA500T4 PO (02:26)
[2019-01-18] MEDS ORDERED: ATOR20TA86 PO (02:26)
[2019-01-18] MEDS ORDERED: DIVA250T PO (02:26)
[2019-01-18 06:42] LABS: CHOL/HDL RATIO 5.7; FREE T4 (FREE THYROXINE) 0.85 ng/dL (0.76-1.46); LDL/HDL RATIO 3.2 (0.5-3.0)
[2019-01-18 07:05] VITALS: BP 99/67
[2019-01-18] MEDS: ACETAMINOPHEN 325 MG TABLET PO PRN (08:12)
[2019-01-18 08:13] LABS: MICROSCOPIC AUTO
[2019-01-18 08:24] LABS: CULTURE INDICATED? NO
[2019-01-18 11:52] LABS: FREE T4 (FREE THYROXINE) 0.87 ng/dL (0.76-1.46)
[2019-01-18] MEDS: DOCUSATE 100 MG CAPSULE PO PRN (15:17)
[2019-01-18 19:00] VITALS: BP 107/66
[2019-01-18] MEDS: METHOCARBAMOL 750 MG TABLET PO SCH (21:16)
[2019-01-18] MEDS: TEMAZEPAM 15 MG CAPSULE PO SCH (21:18)
[2019-01-18] MEDS: ATORVASTATIN 20 MG TABLET PO SCH (21:18)
[2019-01-19 07:29] VITALS: BP 118/82
[2019-01-19] MEDS: LISINOPRIL 20 MG TABLET PO SCH (08:12)
[2019-01-19] MEDS: DOCUSATE 100 MG CAPSULE PO PRN ×2 (08:12→20:21)
[2019-01-19] MEDS: ONDANSETRON ODT 4 MG PO PRN (16:09)
[2019-01-19] MEDS: CALCIUM CARBONATE 500 MG TAB.CHEW PO PRN ×2 (16:09→21:18)
[2019-01-19 19:54] VITALS: BP 101/69
[2019-01-19] MEDS: METHOCARBAMOL 750 MG TABLET PO SCH (20:20)
[2019-01-19] MEDS: TEMAZEPAM 15 MG CAPSULE PO SCH (20:21)
[2019-01-19] MEDS: ACETAMINOPHEN 325 MG TABLET PO PRN (20:21)
[2019-01-19] MEDS: ATORVASTATIN 20 MG TABLET PO SCH (20:21)
[2019-01-19] MEDS: CARBAMAZEPINE XR 200 MG TABLET PO SCH (20:21)
[2019-01-20] MEDS: OMEPRAZOLE 20 MG CAPSULE.DR PO SCH (06:00)
[2019-01-20 07:44] VITALS: BP 107/73
[2019-01-20] MEDS: LISINOPRIL 20 MG TABLET PO SCH (08:30)
[2019-01-20] MEDS: CARBAMAZEPINE XR 200 MG TABLET PO SCH ×2 (08:30→20:13)
[2019-01-20] MEDS: ACETAMINOPHEN 325 MG TABLET PO PRN (18:38)
[2019-01-20 19:25] VITALS: BP 106/70
[2019-01-20] MEDS: ATORVASTATIN 20 MG TABLET PO SCH (20:13)
[2019-01-20] MEDS: METHOCARBAMOL 750 MG TABLET PO SCH (20:13)
[2019-01-20] MEDS: DOCUSATE 100 MG CAPSULE PO PRN (20:13)
[2019-01-20] MEDS: TEMAZEPAM 15 MG CAPSULE PO SCH (20:13)
[2019-01-21] MEDS: OMEPRAZOLE 20 MG CAPSULE.DR PO SCH (05:55)
[2019-01-21 07:10] VITALS: BP 136/87
[2019-01-21] MEDS: CARBAMAZEPINE XR 200 MG TABLET PO SCH ×2 (08:16→20:20)
[2019-01-21] MEDS: LISINOPRIL 20 MG TABLET PO SCH (08:17)
[2019-01-21] MEDS: POLYETHYLENE GLYCOL 17 GM PACKET PO PRN (08:29)
[2019-01-21] MEDS: ACETAMINOPHEN 325 MG TABLET PO PRN ×2 (16:07→20:20)
[2019-01-21 19:42] VITALS: BP 110/75
[2019-01-21] MEDS: TEMAZEPAM 15 MG CAPSULE PO SCH (20:20)
[2019-01-21] MEDS: ATORVASTATIN 20 MG TABLET PO SCH (20:20)
[2019-01-21] MEDS: METHOCARBAMOL 750 MG TABLET PO SCH (20:20)
[2019-01-21] MEDS: DOCUSATE 100 MG CAPSULE PO PRN (20:20)
[2019-01-22] MEDS: OMEPRAZOLE 20 MG CAPSULE.DR PO SCH (05:32)
[2019-01-22 07:14] VITALS: BP 111/74
[2019-01-22] MEDS: LISINOPRIL 20 MG TABLET PO SCH ×2 (09:00→09:15)
[2019-01-22] MEDS: CARBAMAZEPINE XR 200 MG TABLET PO SCH ×2 (09:15→20:23)
[2019-01-22] MEDS: ACETAMINOPHEN 325 MG TABLET PO PRN ×2 (10:06→20:23)
[2019-01-22] MEDS: POLYETHYLENE GLYCOL 17 GM PACKET PO PRN (16:35)
[2019-01-22] MEDS: ONDANSETRON ODT 4 MG PO PRN (18:02)
[2019-01-22 19:18] VITALS: BP 129/87
[2019-01-22] MEDS: METHOCARBAMOL 750 MG TABLET PO SCH (20:23)
[2019-01-22] MEDS: TEMAZEPAM 15 MG CAPSULE PO SCH (20:23)
[2019-01-22] MEDS: ATORVASTATIN 20 MG TABLET PO SCH (20:23)
[2019-01-23] MEDS: DOCUSATE 100 MG CAPSULE PO PRN ×2 (06:00→20:02)
[2019-01-23] MEDS: OMEPRAZOLE 20 MG CAPSULE.DR PO SCH (06:00)
[2019-01-23 07:30] VITALS: BP 102/75
[2019-01-23] MEDS: LISINOPRIL 20 MG TABLET PO SCH (08:20)
[2019-01-23] MEDS: ACETAMINOPHEN 325 MG TABLET PO PRN ×2 (08:20→20:02)
[2019-01-23] MEDS: CARBAMAZEPINE XR 200 MG TABLET PO SCH ×2 (08:20→20:02)
[2019-01-23 14:10] VITALS: BP 107/80
[2019-01-23] MEDS: ONDANSETRON ODT 4 MG PO PRN (14:11)
[2019-01-23 19:15] VITALS: BP 115/78
[2019-01-23] MEDS: METHOCARBAMOL 750 MG TABLET PO SCH (20:02)
[2019-01-23] MEDS: TEMAZEPAM 15 MG CAPSULE PO SCH (20:02)
[2019-01-23] MEDS: ATORVASTATIN 20 MG TABLET PO SCH (20:02)
[2019-01-23] MEDS: POLYETHYLENE GLYCOL 17 GM PACKET PO PRN (20:04)
[2019-01-24] MEDS: OMEPRAZOLE 20 MG CAPSULE.DR PO SCH (06:12)
[2019-01-24 07:14] VITALS: BP 113/79
[2019-01-24] MEDS: ACETAMINOPHEN 325 MG TABLET PO PRN ×2 (08:16→17:48)
[2019-01-24] MEDS: CARBAMAZEPINE XR 200 MG TABLET PO SCH ×2 (08:16→20:13)
[2019-01-24] MEDS: LISINOPRIL 20 MG TABLET PO SCH (08:16)
[2019-01-24] MEDS ORDERED: CARB200T2 PO (13:40)
[2019-01-24] MEDS ORDERED: LISI-170 PO (13:40)
[2019-01-24] MEDS ORDERED: TEMA15CA6 PO (13:40)
[2019-01-24 19:42] VITALS: BP 104/69
[2019-01-24] MEDS: ATORVASTATIN 20 MG TABLET PO SCH (20:13)
[2019-01-24] MEDS: TEMAZEPAM 15 MG CAPSULE PO SCH (20:13)
[2019-01-24] MEDS: METHOCARBAMOL 750 MG TABLET PO SCH (20:13)
[2019-01-25] MEDS: OMEPRAZOLE 20 MG CAPSULE.DR PO SCH (06:13)
[2019-01-25 07:46] VITALS: BP 112/75
[2019-01-25] MEDS: LISINOPRIL 20 MG TABLET PO SCH (09:00)
[2019-01-25] MEDS: CARBAMAZEPINE XR 200 MG TABLET PO SCH (10:16)
== END 2019-01-25 11:15 | disposition home or self-care (01) | DRG 885 ==
LOC: 3E 18:26
PROVIDERS: ADMIT Psychiatry & Neurology Psychosomatic Medicine; ATTEND Psychiatry & Neurology Psychosomatic Medicine
DX: F31.5 Bipolar disorder, current episode depressed, severe, with psychotic features (principal); G30.9 Alzheimer's disease, unspecified; F02.80 Dementia in other diseases classified elsewhere, unspecified severity, without behavioral disturbance, psychotic disturbance, mood disturbance, and anxiety; E03.9 Hypothyroidism, unspecified; E78.00 Pure hypercholesterolemia, unspecified; I10 Essential (primary) hypertension; Z85.850 Personal history of malignant neoplasm of thyroid
CPT/HCPCS: 36415; 80061; 81001; 82140; 82607; 84439; 84443; 84481; 94660; Q0162

== ENCOUNTER 2019-03-09 00:05 | Emergency (ER) | payer MEDICARE ==
[~2019-03-09] VITALS: Ht 154.9 cm; Wt 59.1 kg
[~2019-03-09 00:05] MED LIST changes: +ATOR20TA86 PO; +CARB200T2 PO; +DIVA250T PO; +LISI-170 PO; +METH750T87 PO; +TEMA15CA6 PO
[2019-03-09 00:34] LABS: BASOPHILS # (AUTO) 0.03 x10^3/uL (0-0.1); BASOPHILS % (AUTO) 0 % (0-1); EOSINOPHILS % (AUTO) 1 % (1-7); LYMPHOCYTES % (AUTO) 10 % (22-44); MD NO; MEAN CORPUSCULAR HGB CONC 32.6 g/dL (32.4-35.8); MEAN CORPUSCULAR VOLUME 88.9 fL (80-100); MEAN PLATELET VOLUME 8.2 fL (7.4-10.4); MONOCYTES # (AUTO) 0.76 x10^3/uL (0.2-0.8); MONOCYTES % (AUTO) 8 % (2-9); NEUTROPHILS # (AUTO) 8.15 x10^3/uL (1.8-6.8); NEUTROPHILS % (AUTO) 81 % (42-75); PLATELET COUNT 377 x10^3/uL (130-400); RED BLOOD COUNT 4.27 x10^6/uL (3.82-5.3); RED CELL DISTRIBUTION WIDTH 15.4 % (9.6-15.2)
[2019-03-09 00:45] LABS: ALBUMIN 3.2 g/dL (3.4-5.0); ANION GAP 9 mmol/L (5-15); CALCIUM 9.4 mg/dL (8.5-10.1); CHLORIDE 110 mmol/L (98-107); CREATININE 1.15 mg/dL (0.55-1.02); SALICYLATE LEVEL 2.1 mg/dL (2.8-20.0)
[2019-03-09 01:52] LABS: FREE T4 (FREE THYROXINE) 0.79 ng/dL (0.76-1.46)
[2019-03-09 03:33] LABS: AMPHETAMINE SCREEN, URINE Negative (Negative); BARBITURATE SCREEN, URINE Negative (Negative); BENZODIAZEPINE SCREEN, URINE Negative (Negative); CANNABINOID SCREEN, URINE Negative (Negative); COCAINE SCREEN, URINE Negative (Negative); METHADONE SCREEN, URINE Negative (Negative); OPIATE SCREEN, URINE Negative (Negative)
--- NOTE | 2019-03-09 03:38 | NUR ---
SOC CALLED PER PROTOCOL
--- NOTE | 2019-03-09 03:47 | NUR ---
[facility] NOTIFIED OF THIS PATIENT. AWAITING RESPONSE.
--- NOTE | 2019-03-09 03:48 | NUR ---
PAPERWORK FAXED TO ALL LOCAL FACILITIES INLCUDING [facility], [facility], [facility], [facility], [facility].
--- NOTE | 2019-03-09 03:51 | NUR ---
LEGAL PAPERWORK INITIATED BY DR. RODRIGUEZ. FILED ON CHART.
--- NOTE | 2019-03-09 03:54 | NUR ---
JOSE DE JESUS WORKING ON OBTAINING "PRIOR AUTHORIZATION FROM [facility]".
[2019-03-09] MEDS ORDERED: LEVOTHYROXINE 100 MCG TABLET PO ONE (04:00)
--- NOTE | 2019-03-09 04:25 | NUR ---
This RN called admitting for assistance with prior authorization for patient insurance prior to admit to [facility]. Admitting informed this RN that they are unable to assist with process, "We don't do prior authorization."
--- NOTE | 2019-03-09 04:35 | NUR ---
CALL RECEIVED FROM ENRIQUETA AT [facility]. AT [facility] WOULD LIKE TO REASSESS PT IN AM FOR POSSIBLE ACCEPTANCE. [facility] WILL CALL IN AM FOR REASSESS.
--- NOTE | 2019-03-09 04:49 | NUR ---
REPORT FROM LEN CASTELLON
--- NOTE | 2019-03-09 05:58 | NUR ---
This RN presented referral to Dr. Vuppalapati. M[facility]ORD willing to admit patient to [facility]E if insurance prior authorization granted. This RN called [employer] automated system, computerized recording states live unit support representative for authorization only available M-F 8am-5pm. Notified ДМИТРИЙ Rivera calendering supervisor RN. Will inform [facility] calendering supervisor at shift change.
[2019-03-09] MEDS ORDERED: LEVOTHYROXINE 50 MCG TABLET PO SCH (06:00)
--- NOTE | 2019-03-09 06:10 | NUR ---
MED REQUEST SENT TO LAB
--- NOTE | 2019-03-09 06:10 | NUR ---
PER ER MD MORALES, 50 MCG SYNTHRIOD TO ADMINISTER.
--- NOTE | 2019-03-09 06:14 | NUR ---
PT BELONGINGS PLACED INTO ONE BAG AND PLACED IN LOCKER. WAS HERE AND TOOK MOST OF HER BELONGINGS WITH HIM WHEN HE LEFT.
--- NOTE | 2019-03-09 07:15 | NUR ---
RECEIVED REPORT FROM QUIRINO HARRINGTON. PT RESTING CALMLY IN BED. NO STATED NEEDS FROM PT. PT ROOM SECURE. SITTER AT DOOR.
--- NOTE | 2019-03-09 08:19 | NUR ---
PT RESTING IN BED, CALMLY TALKING TO HERSELF AT TIMES. NO STATED NEEDS. WILL CONTINUE TO MONITOR.
--- NOTE | 2019-03-09 09:17 | NUR ---
BREAK RN NOTE: SI MEAL TRAY ORDERED FOR PATIENT.
--- NOTE | 2019-03-09 09:39 | NUR ---
PT RESTING ON GURNEY, RESPS EVEN AND UNLABORED. SITTER MONITORING FROM [facility] FOR SAFETY. ROOM SECURE. REPORT GIVEN BACK TO PRIMARY RN RACHAEL.
[2019-03-09 10:35] VITALS: BP 121/63
--- NOTE | 2019-03-09 10:44 | NUR ---
PT GIVEN MEAL TRAY. VITALS DONE. PT GIVEN MOIST TOWEL TO WASH HANDS BEFORE EATING PER PT REQUEST. PT CURRENTLY TALKING TO HER BLUEBERRY MUFFIN. PT CALM,. SITTER AT DOOR. WILL CONTINUE TO MONITOR.
[2019-03-09] MEDS ORDERED: TEMAZEPAM 15 MG CAPSULE PO PRN (11:00)
[2019-03-09] MEDS ORDERED: AMOXICILLIN/CLAV 875-125MG TABLET PO SCH (11:00)
[2019-03-09 11:29] LABS: BASOPHILS # (AUTO) 0.03 x10^3/uL (0-0.1); BASOPHILS % (AUTO) 0 % (0-1); EOSINOPHILS # (AUTO) 0.09 x10^3/uL (0-0.4); EOSINOPHILS % (AUTO) 1 % (1-7); LYMPHOCYTES # (AUTO) 0.82 x10^3/uL (1-3.4); LYMPHOCYTES % (AUTO) 11 % (22-44); MD NO; MEAN CORPUSCULAR HEMOGLOBIN 29.2 pg (27.0-34.8); MEAN CORPUSCULAR HGB CONC 32.8 g/dL (32.4-35.8); MEAN CORPUSCULAR VOLUME 89.1 fL (80-100); MEAN PLATELET VOLUME 8.4 fL (7.4-10.4); MONOCYTES # (AUTO) 0.58 x10^3/uL (0.2-0.8); MONOCYTES % (AUTO) 8 % (2-9); NEUTROPHILS # (AUTO) 5.94 x10^3/uL (1.8-6.8); NEUTROPHILS % (AUTO) 80 % (42-75); PLATELET COUNT 366 x10^3/uL (130-400); RED BLOOD COUNT 3.97 x10^6/uL (3.82-5.3); RED CELL DISTRIBUTION WIDTH 15.9 % (9.6-15.2)
[2019-03-09] MEDS ORDERED: AMPICILLIN/SULBACTAM 3 GM in SODIUM CHLORIDE 0.9% 100 ML IV ONE (11:30)
[2019-03-09] MEDS ORDERED: DIPHENHYDRAMINE 50 MG/ML, 1ML IVPush ONE (11:30)
[2019-03-09 11:42] LABS: ALANINE AMINOTRANSFERASE 53 U/L (12-78); ALBUMIN 2.9 g/dL (3.4-5.0); ANION GAP 12 mmol/L (5-15); CALCIUM 8.9 mg/dL (8.5-10.1); CHLORIDE 113 mmol/L (98-107)
[2019-03-09 11:44] LABS: ALKALINE PHOSPHATASE 107 U/L (45-117); BILIRUBIN,TOTAL 0.3 mg/dL (0.2-1.0); CREATININE 1.05 mg/dL (0.55-1.02); TOTAL PROTEIN 7.5 g/dL (6.4-8.2)
[2019-03-09] MEDS ORDERED: AMOXICILLIN/CLAV 875-125MG TABLET ONE (11:56)
[2019-03-09] MEDS ORDERED: DIPHENHYDRAMINE 50 MG/ML, 1ML ONE (11:56)
[2019-03-09] MEDS ORDERED: SODIUM CHLORIDE 0.9% 1,000 ML IV SCH (12:40)
--- NOTE | 2019-03-09 12:44 | NUR ---
ABLE TO PLACE IV WITH ASSIST. ONE SET OF BLOOD CULTURES DRAWN. PT BECOMING AGITATED WITH NEEDLE POKES, STATING, "I DON'T DO DRUGS". PT REMINDED SHE IS IN THE HOSPITAL AND IS SAFE. PT RELAXED FOR MEDICATION PER EMAR, STILL NEED TO GIVE ABX AFTER BLOOD CULTURES COMPLETED. PT GOING TO CT AT THIS TIME. WILL CALL LAB WHEN PT HAS RELAXED.
[2019-03-09] MEDS ORDERED: LABETALOL 5MG/ML, 20ML IVPush PRN (13:00)
[2019-03-09] MEDS ORDERED: ONDANSETRON 2MG/ML, 2ML IVPush PRN (13:00)
[2019-03-09] MEDS ORDERED: PROMETHAZINE 25 MG/ML, 1ML IM PRN (13:00)
[2019-03-09] MEDS ORDERED: HEPARIN 5,000 UNITS/ML, 1ML SQ SCH (13:00)
[2019-03-09] MEDS ORDERED: ACETAMINOPHEN 325 MG TABLET PO PRN (13:00)
[2019-03-09] MEDS ORDERED: hydrALAzine 20 MG/ML, 1ML IVPush PRN (13:00)
--- NOTE | 2019-03-09 13:20 | NUR ---
dr jimenez spoke with dr dean barroso. attempted to reach april cruz in [place] but unavailable at the time.
[2019-03-09] MEDS ORDERED: SODIUM CHLORIDE 0.45% 1,000 ML IV SCH (14:00)
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
--- NOTE | 2019-03-09 14:28 | NUR ---
DR. JACKSON SPOKE WITH DR. MARIE AT [facility] DR. MARIE WILLING TO ACCEPT PENDING SPEAKING WITH KIRA THE TRANSFER CORDINATOR
--- NOTE | 2019-03-09 14:57 | NUR ---
PT ABLE TO AMBULATE TO THE BATHROOM TO VOID. PT VOIDED IN GURNEY WELL. GURNEY CLEANED, NEW LINENS AND GOWN PLACED. SITTER REMAINS AT DOOR. WILL CONTINUE TO MONITOR.
--- NOTE | 2019-03-09 15:12 | NUR ---
PT RESTING IN BED CALMLY AT THIS TIME. NO STATED COMPLAINTS. PT DID NOT EAT MUCH OF LUNCH MEAL TRAY. SITTER AT DOOR. WILL CONTINUE TO MONITOR.
[2019-03-09] MEDS ORDERED: SUCRALFATE 1 GM TABLET PO SCH (16:00)
--- NOTE | 2019-03-09 17:25 | NUR ---
report to Yeison HARRINGTON at [facility]. pt currently resting calmly in bed. sitter at door. will continue to monitor.
--- NOTE | 2019-03-09 18:30 | NUR ---
PT LEAVING TO STEPHENIE CUELLAR WITH [facility]. PT BELONGINGS RETURNED
[2019-03-09] MEDS ORDERED: AMPICILLIN/SULBACTAM 1,500 MG in SODIUM CHLORIDE 0.9% 50 ML IV SCH (19:00)
[2019-03-09] MEDS ORDERED: DIVALPROEX 250 MG TAB.ER.24H PO SCH (21:00)
[2019-03-09] MEDS ORDERED: ATORVASTATIN 20 MG TABLET PO SCH (21:00)
[2019-03-09] MEDS ORDERED: CARBAMAZEPINE 200 MG TABLET PO SCH (21:00)
[2019-03-09] MEDS ORDERED: CARBAMAZEPINE XR 200 MG TABLET PO SCH (21:00)
[2019-03-10] MEDS ORDERED: LEVOTHYROXINE 100 MCG TABLET PO SCH (06:00)
[2019-03-10] MEDS ORDERED: LISINOPRIL 20 MG TABLET PO SCH (09:00)
== END 2019-03-09 18:40 | disposition short-term general hospital (02) ==
LOC: ED 01:23 → EDIP 12:43 → UNDOADMIN 12:43
DX: F32.0 Major depressive disorder, single episode, mild (principal); E78.5 Hyperlipidemia, unspecified; E78.00 Pure hypercholesterolemia, unspecified; E03.9 Hypothyroidism, unspecified
CPT/HCPCS: 36415; 70491; 80048; 80053; 80156; 80307; 82040; 83605; 84145; 84439; 84443; 85025; 87040; 96365; 96375; 99285; J0295; J1200; 96374

== ENCOUNTER 2019-05-11 23:56 | Emergency (ER) | payer MEDICARE ==
[~2019-05-11] VITALS: Ht 154.9 cm; Wt 60.0 kg
[~2019-05-11 23:56] MED LIST changes: +BENZ1TAB61 PO; +CARB200T PO; +LEVO50TA PO; +METR-90 PO; +METR500T PO; +PANT40TA5 PO
[2019-05-12 00:02] VITALS: BP 112/70
[2019-05-13] MEDS ORDERED: CARB200T PO (15:33)
[2019-05-13] MEDS ORDERED: PALI156D IM (15:56)
== END 2019-05-12 01:29 ==
LOC: ED 05-12 01:23
DX: F31.11 Bipolar disorder, current episode manic without psychotic features, mild (principal); K21.9 Gastro-esophageal reflux disease without esophagitis; F20.9 Schizophrenia, unspecified; E78.00 Pure hypercholesterolemia, unspecified; Z90.89 Acquired absence of other organs
CPT/HCPCS: 99283

== ENCOUNTER 2019-05-13 10:31 | Emergency (ER) | payer MEDICARE ==
[~2019-05-13] VITALS: Ht 154.9 cm; Wt 59.6 kg
[2019-05-13 11:00] VITALS: BP 110/65
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
--- NOTE | 2019-05-13 11:42 | NUR ---
Zechariah rosa in ED - 05/13/19 at 1145 by NIKIA PT AMBULATORY TO RESTROOM WITH STEADY GAIT FOR UA SAMPLE. UA WALKED TO LAB.
--- NOTE | 2019-05-13 11:45 | NUR ---
PT AMBULATORY TO RESTROOM WITH STEADY GAIT FOR URINE SAMPLE. PT STATES "I LEFT THE CUP IN THE TOILET FOR YOU." WHEN THIS RN ENTERED RESTROOM, NOTED THAT PT HAD ATTEMPTED TO FLUSH PLASTIC CUP STATES "I HAD PLASTIC, IT'S BAD FOR THE ENVIRONMENT." PT EDUCATED ON NEED FOR URINE SAMPLE, PT VERBALIZED UNDERSTANDING.
[2019-05-13 11:49] LABS: MEAN CORPUSCULAR HEMOGLOBIN 29.2 pg (27.0-34.8); MEAN CORPUSCULAR HGB CONC 33.5 g/dL (32.4-35.8); MEAN CORPUSCULAR VOLUME 87.4 fL (80-100); MEAN PLATELET VOLUME 7.9 fL (7.4-10.4); PLATELET COUNT 340 x10^3/uL (130-400); RED BLOOD COUNT 3.94 x10^6/uL (3.82-5.3); RED CELL DISTRIBUTION WIDTH 18.8 % (9.6-15.2)
[2019-05-13 11:55] LABS: ALANINE AMINOTRANSFERASE 23 U/L (12-78); ALBUMIN 2.4 g/dL (3.4-5.0); ANION GAP 8 mmol/L (5-15); CALCIUM 8.9 mg/dL (8.5-10.1); CHLORIDE 107 mmol/L (98-107); CREATININE 1.06 mg/dL (0.55-1.02)
[2019-05-13 11:57] LABS: ALKALINE PHOSPHATASE 87 U/L (45-117); BILIRUBIN,TOTAL 0.3 mg/dL (0.2-1.0); TOTAL PROTEIN 7.5 g/dL (6.4-8.2)
[2019-05-13 11:59] LABS: SALICYLATE LEVEL < 1.7 mg/dL (2.8-20.0)
--- NOTE | 2019-05-13 12:08 | NUR ---
ENGRAVER SIGNATURE AT BEDSIDE FOR EXAM.
[2019-05-13 12:31] LABS: MD YES
[2019-05-13 12:33] LABS: BAND#(MANUAL) 0.46 x10^3/uL; BANDS%(MANUAL) 4 % (0-7); EOS#(MANUAL) 0.23 x10^3/uL (0.0-0.4); EOS% (MANUAL) 2 % (1-7); LYMPH#(MANUAL) 1.25 x10^3/uL (1-3.4); LYMPHS% (MANUAL) 11 % (22-44); METAMYELOCYTES# (MANUAL) 0.11 x10^3/uL (0-0); METAMYELOCYTES% (MANUAL) 1 % (0-1); MONOS% (MANUAL) 7 % (2-9); SEG#(MANUAL) 8.55 x10^3/uL (1.8-6.8); SEGS% (MANUAL) 75 % (42-75)
[2019-05-13 12:36] LABS: <PLATELET ESTIMATE> ADEQUATE; <PLT MORPHOLOGY> NORMAL PLT MORPH; <RBC MORPHOLOGY> NORMAL
--- NOTE | 2019-05-13 12:51 | NUR ---
PER CAREER PLACEMENT SPECIALIST, PLAN FOR LEGAL HOLD.
--- NOTE | 2019-05-13 13:13 | NUR ---
PT RESTING ON GURNEY, AT BEDSIDE. PT STILL REFUSING TO CHANGE INTO GOWN.
--- NOTE | 2019-05-13 13:56 | NUR ---
Received report from LEN Diehl. All questions answered. Assuming care of pt at this time. Pt changed in to hospital gown. Pt's sweater, shirt, pants, and shoes placed in 1 of 1 personal belongings bag and kept in ED locker for safe keeping. Pt's spouse took home her silver chain necklace, her silver and stone ring, and her leather purse and jacket. Pt ambulates with steady gait and balance from ED room 25. When attempting to ambulate sba with pt from room 25 to room 2 pt turned left into trauma room 4 and laid down on gurney refusing to move. Pt resistent to verbal requests to move out of trauma room 4 to ED Staff. Security escorted pt from trauma room 4 to ED room 2. Pt left behind in room 25 a gold colored three stoned ring. Ring placed in security office for safe keeping. Note on file with security and in patient's chart for ring to be returned upon discharge from ED. Pt in ED room 2 on gurney with SI/HI precautions in place and sitter near doorway in direct line of observation. No needs expressed at this time. Pending DOA upon patient compliance at this time. Pt not cooperative with EDRN at this time.
[2019-05-13] MEDS ORDERED: TEMAZEPAM 15 MG CAPSULE PO PRN (14:00)
--- NOTE | 2019-05-13 14:24 | NUR ---
Pt provided urine sample. Provided pt soda and water per request. Sent DOA sample to lab.
--- NOTE | 2019-05-13 14:54 | NUR ---
Attempted to provide hospital bed to pt. Pt refused hospital bed.
--- NOTE | 2019-05-13 14:55 | NUR ---
Unable to obtain home medication list confrimation from patient at this time. Pt not cooperative with answering questions of staff at this time.
[2019-05-13 15:04] LABS: AMPHETAMINE SCREEN, URINE Negative (Negative); BARBITURATE SCREEN, URINE Negative (Negative); BENZODIAZEPINE SCREEN, URINE Negative (Negative); CANNABINOID SCREEN, URINE Negative (Negative); COCAINE SCREEN, URINE Negative (Negative); METHADONE SCREEN, URINE Negative (Negative); OPIATE SCREEN, URINE Negative (Negative)
[2019-05-13] MEDS ORDERED: CARB200T PO (15:33)
--- NOTE | 2019-05-13 15:36 | NUR ---
Provided report to LEN Morfin on [facility]. All questions answered. Pt pending to go to [facility] once DOA results are no longer pending.
--- NOTE | 2019-05-13 15:54 | NUR ---
Provided pt lunch tray and crackers per request. No other needs requested at this time. Sitter in direct line of sight for observation.
[2019-05-13] MEDS ORDERED: PALI156D IM (15:56)
[2019-05-13 16:02] LABS: CULTURE INDICATED? YES; MICROSCOPIC INDICATED
--- NOTE | 2019-05-13 16:20 | NUR ---
Pt transfered from ED to [facility] in wheelchair with two ED techs and pt left with 1 of 1 personal belongings bags from ED locker and pt's gold ring with three stones that was kept in security office. Pt left ED with all personal belongings.
[2019-05-13] MEDS ORDERED: DIVALPROEX 500 MG TAB.ER.24H PO SCH (21:00)
[2019-05-13] MEDS ORDERED: BENZTROPINE 1 MG TABLET PO SCH (21:00)
[2019-05-13] MEDS ORDERED: CARBAMAZEPINE 200 MG TABLET PO SCH (21:00)
[2019-05-14] MEDS ORDERED: CARBAMAZEPINE 200 MG TABLET PO SCH (09:00)
== END 2019-05-13 16:23 ==
LOC: ED 14:26
DX: F31.4 Bipolar disorder, current episode depressed, severe, without psychotic features (principal); K21.9 Gastro-esophageal reflux disease without esophagitis; F20.9 Schizophrenia, unspecified; Z87.891 Personal history of nicotine dependence
CPT/HCPCS: 36415; 80053; 80156; 80164; 80307; 81001; 85025; 87086; 99285

== ENCOUNTER 2019-05-13 15:00 | Inpatient (IN) | payer MEDICARE ==
[~2019-05-13] VITALS: Ht 154.9 cm; Wt 60.7 kg
[2019-05-13] MEDS ORDERED: POLYETHYLENE GLYCOL 17 GM PACKET PO PRN (15:30)
[2019-05-13] MEDS ORDERED: DOCUSATE 100 MG CAPSULE PO PRN (15:30)
[2019-05-13] MEDS ORDERED: BISACODYL 10 MG SUPP PR PRN (15:30)
[2019-05-13] MEDS ORDERED: ONDANSETRON ODT 4 MG PO PRN (15:30)
[2019-05-13] MEDS ORDERED: CARB200T PO (15:33)
[2019-05-13] MEDS ORDERED: PALI156D IM (15:56)
[2019-05-13 16:29] LABS: CHOL/HDL RATIO 8.6; FREE T4 (FREE THYROXINE) 0.56 ng/dL (0.76-1.46); LDL/HDL RATIO 5.6 (0.5-3.0)
[2019-05-13 16:30] VITALS: BP 131/71
[2019-05-13] MEDS ORDERED: LORazepam 2 MG/ML, 1ML ONE (17:23)
[2019-05-13] MEDS ORDERED: LORazepam 2 MG/ML, 1ML IM ONE (17:30)
[2019-05-13] MEDS ORDERED: PLEASE ENTER HEIGHT AND WEIGHT MC SCH (18:00)
[2019-05-13 20:12] VITALS: BP 92/63
[2019-05-13] MEDS: BENZTROPINE 1 MG TABLET PO SCH (20:53)
[2019-05-13] MEDS: CARBAMAZEPINE 200 MG TABLET PO SCH (20:53)
[2019-05-13] MEDS: DIVALPROEX 500 MG TAB.ER.24H PO SCH (20:53)
[2019-05-13] MEDS: TEMAZEPAM 15 MG CAPSULE PO PRN (20:53)
[2019-05-14 01:06] VITALS: BP 131/71
[2019-05-14] MEDS: LEVOTHYROXINE 50 MCG TABLET PO SCH (06:29)
[2019-05-14] MEDS: PANTOPRAZOLE 40MG TABLET PO SCH (06:29)
[2019-05-14 07:25] LABS: MEAN CORPUSCULAR HEMOGLOBIN 29.3 pg (27.0-34.8); MEAN CORPUSCULAR HGB CONC 33.1 g/dL (32.4-35.8); MEAN CORPUSCULAR VOLUME 88.4 fL (80-100); MEAN PLATELET VOLUME 7.6 fL (7.4-10.4); PLATELET COUNT 362 x10^3/uL (130-400); RED BLOOD COUNT 3.92 x10^6/uL (3.82-5.3); RED CELL DISTRIBUTION WIDTH 18.6 % (9.6-15.2)
[2019-05-14 07:28] LABS: ANION GAP 6 mmol/L (5-15); CHLORIDE 108 mmol/L (98-107); CREATININE 1.13 mg/dL (0.55-1.02)
[2019-05-14 07:55] VITALS: BP 108/70
[2019-05-14] MEDS: CARBAMAZEPINE 200 MG TABLET PO SCH ×2 (08:40→20:09)
[2019-05-14] MEDS: BENZTROPINE 1 MG TABLET PO SCH ×2 (08:40→20:09)
[2019-05-14 08:45] LABS: MD SCAN
[2019-05-14 08:46] LABS: BASOPHILS # (AUTO) 0.04 x10^3/uL (0-0.1); BASOPHILS % (AUTO) 1 % (0-1); EOSINOPHILS # (AUTO) 0.14 x10^3/uL (0-0.4); EOSINOPHILS % (AUTO) 2 % (1-7); LYMPHOCYTES # (AUTO) 1.46 x10^3/uL (1-3.4); LYMPHOCYTES % (AUTO) 15 % (22-44); MONOCYTES # (AUTO) 0.67 x10^3/uL (0.2-0.8); MONOCYTES % (AUTO) 7 % (2-9); NEUTROPHILS # (AUTO) 7.43 x10^3/uL (1.8-6.8); NEUTROPHILS % (AUTO) 76 % (42-75)
[2019-05-14 19:47] VITALS: BP 94/65
[2019-05-14] MEDS: ATORVASTATIN 40 MG TABLET PO SCH (20:09)
[2019-05-14] MEDS: DIVALPROEX 500 MG TAB.ER.24H PO SCH (20:10)
[2019-05-15 07:30] VITALS: BP 106/69
[2019-05-15] MEDS: OLANZAPINE ODT 10MG PO SCH (09:12)
[2019-05-15] MEDS: PANTOPRAZOLE 40MG TABLET PO SCH (09:12)
[2019-05-15] MEDS: LEVOTHYROXINE 50 MCG TABLET PO SCH (09:12)
[2019-05-15] MEDS: CARBAMAZEPINE 200 MG TABLET PO SCH ×2 (09:12→20:14)
[2019-05-15] MEDS: BENZTROPINE 1 MG TABLET PO SCH ×2 (09:12→20:13)
[2019-05-15 20:00] VITALS: BP 103/68
[2019-05-15] MEDS: DIVALPROEX 500 MG TAB.ER.24H PO SCH (20:13)
[2019-05-15] MEDS: ATORVASTATIN 40 MG TABLET PO SCH (20:14)
[2019-05-16] MEDS: PANTOPRAZOLE 40MG TABLET PO SCH (06:13)
[2019-05-16] MEDS: LEVOTHYROXINE 50 MCG TABLET PO SCH (06:14)
[2019-05-16 07:53] VITALS: BP 108/74
[2019-05-16] MEDS: BENZTROPINE 1 MG TABLET PO SCH ×2 (08:46→20:56)
[2019-05-16] MEDS: OLANZAPINE ODT 10MG PO SCH (08:46)
[2019-05-16] MEDS: CARBAMAZEPINE 200 MG TABLET PO SCH ×2 (08:46→20:56)
[2019-05-16 19:48] VITALS: BP 111/74
[2019-05-16] MEDS: DIVALPROEX 500 MG TAB.ER.24H PO SCH (20:57)
[2019-05-16] MEDS: ATORVASTATIN 40 MG TABLET PO SCH (21:00)
[2019-05-17] MEDS: ACETAMINOPHEN 325 MG TABLET PO PRN (01:06)
[2019-05-17] MEDS: PANTOPRAZOLE 40MG TABLET PO SCH (06:01)
[2019-05-17] MEDS: LEVOTHYROXINE 50 MCG TABLET PO SCH (06:01)
[2019-05-17 07:24] VITALS: BP 130/83
[2019-05-17] MEDS: CARBAMAZEPINE 200 MG TABLET PO SCH ×2 (08:15→20:44)
[2019-05-17] MEDS: OLANZAPINE ODT 10MG PO SCH (08:15)
[2019-05-17] MEDS: BENZTROPINE 1 MG TABLET PO SCH ×2 (08:16→20:44)
[2019-05-17 15:53] LABS: MICROSCOPIC AUTO
[2019-05-17 16:03] LABS: CULTURE INDICATED? YES
[2019-05-17 19:38] VITALS: BP 95/66
[2019-05-17] MEDS: ATORVASTATIN 40 MG TABLET PO SCH (20:44)
[2019-05-17] MEDS: DIVALPROEX 500 MG TAB.ER.24H PO SCH (20:45)
[2019-05-18] MEDS: PANTOPRAZOLE 40MG TABLET PO SCH (06:07)
[2019-05-18] MEDS: LEVOTHYROXINE 50 MCG TABLET PO SCH (06:07)
[2019-05-18 07:14] VITALS: BP 97/60
[2019-05-18] MEDS: BENZTROPINE 1 MG TABLET PO SCH ×2 (08:41→20:27)
[2019-05-18] MEDS: CARBAMAZEPINE 200 MG TABLET PO SCH ×2 (08:41→20:27)
[2019-05-18] MEDS: OLANZAPINE ODT 10MG PO SCH (08:41)
[2019-05-18] MEDS: LORazepam 0.5MG TABLET PO SCH ×3 (13:45→20:26)
[2019-05-18 19:33] VITALS: BP 103/70
[2019-05-18] MEDS: DIVALPROEX 500 MG TAB.ER.24H PO SCH (20:27)
[2019-05-18] MEDS: ATORVASTATIN 40 MG TABLET PO SCH (20:27)
[2019-05-19] MEDS: PANTOPRAZOLE 40MG TABLET PO SCH (06:06)
[2019-05-19] MEDS: LEVOTHYROXINE 50 MCG TABLET PO SCH (06:06)
[2019-05-19 07:11] VITALS: BP 121/84
[2019-05-19] MEDS: OLANZAPINE ODT 10MG PO SCH (09:01)
[2019-05-19] MEDS: CARBAMAZEPINE 200 MG TABLET PO SCH ×2 (09:01→20:39)
[2019-05-19] MEDS: BENZTROPINE 1 MG TABLET PO SCH ×2 (09:01→20:37)
[2019-05-19] MEDS: LORazepam 0.5MG TABLET PO SCH ×3 (09:01→20:36)
[2019-05-19 19:25] VITALS: BP 101/67
[2019-05-19] MEDS: ATORVASTATIN 40 MG TABLET PO SCH (20:37)
[2019-05-19] MEDS: DIVALPROEX 500 MG TAB.ER.24H PO SCH (20:38)
[2019-05-19] MEDS: TEMAZEPAM 15 MG CAPSULE PO PRN (21:37)
[2019-05-20] MEDS: PANTOPRAZOLE 40MG TABLET PO SCH (06:00)
[2019-05-20] MEDS: LEVOTHYROXINE 50 MCG TABLET PO SCH (06:00)
[2019-05-20 07:48] VITALS: BP 113/79
[2019-05-20] MEDS: LORazepam 0.5MG TABLET PO SCH ×3 (08:52→20:23)
[2019-05-20] MEDS: OLANZAPINE ODT 10MG PO SCH ×2 (08:52→08:54)
[2019-05-20] MEDS: CARBAMAZEPINE 200 MG TABLET PO SCH ×2 (08:53→21:06)
[2019-05-20] MEDS: BENZTROPINE 1 MG TABLET PO SCH ×2 (08:59→20:23)
[2019-05-20 19:46] VITALS: BP 100/63
[2019-05-20] MEDS: DIVALPROEX 500 MG TAB.ER.24H PO SCH (20:23)
[2019-05-20] MEDS: ATORVASTATIN 40 MG TABLET PO SCH (20:24)
[2019-05-20] MEDS: TEMAZEPAM 15 MG CAPSULE PO PRN (20:33)
[2019-05-21] MEDS: PANTOPRAZOLE 40MG TABLET PO SCH (05:58)
[2019-05-21] MEDS: LEVOTHYROXINE 50 MCG TABLET PO SCH (05:58)
[2019-05-21 07:08] VITALS: BP 124/87
[2019-05-21] MEDS: LORazepam 0.5MG TABLET PO SCH ×3 (08:29→20:33)
[2019-05-21] MEDS: CARBAMAZEPINE 200 MG TABLET PO SCH ×2 (08:29→20:32)
[2019-05-21] MEDS: BENZTROPINE 1 MG TABLET PO SCH ×2 (08:29→20:33)
[2019-05-21] MEDS: OLANZAPINE ODT 10MG PO SCH (08:29)
[2019-05-21 19:52] VITALS: BP 107/69
[2019-05-21] MEDS: DIVALPROEX 500 MG TAB.ER.24H PO SCH (20:28)
[2019-05-21] MEDS: ATORVASTATIN 40 MG TABLET PO SCH (20:33)
[2019-05-21] MEDS: TEMAZEPAM 15 MG CAPSULE PO PRN (22:03)
[2019-05-22] MEDS: LEVOTHYROXINE 50 MCG TABLET PO SCH (06:17)
[2019-05-22] MEDS: PANTOPRAZOLE 40MG TABLET PO SCH (06:17)
[2019-05-22 08:45] VITALS: BP 107/77
[2019-05-22] MEDS: OLANZAPINE ODT 10MG PO SCH (09:57)
[2019-05-22] MEDS: CARBAMAZEPINE 200 MG TABLET PO SCH ×2 (09:57→20:32)
[2019-05-22] MEDS: LORazepam 0.5MG TABLET PO SCH ×3 (09:57→20:32)
[2019-05-22] MEDS: BENZTROPINE 1 MG TABLET PO SCH ×2 (09:57→20:33)
[2019-05-22] MEDS ORDERED: FOSFOMYCIN 3 GM PACKET PO ONE (13:00)
[2019-05-22] MEDS ORDERED: ATOR40TA78 PO (14:19)
[2019-05-22] MEDS ORDERED: DIVA500T4 PO (14:19)
[2019-05-22] MEDS ORDERED: DOCU100C33 PO (14:19)
[2019-05-22] MEDS ORDERED: CARB200T4 PO (14:19)
[2019-05-22] MEDS ORDERED: OLAN10TA7 PO (14:19)
[2019-05-22] MEDS ORDERED: TEMA15CA6 PO (14:19)
[2019-05-22] MEDS ORDERED: LORA-445 PO (14:19)
[2019-05-22] MEDS ORDERED: BENZ1TAB61 PO (14:19)
[2019-05-22] MEDS ORDERED: PANT40TA5 PO (14:19)
[2019-05-22] MEDS ORDERED: LEVO50TA PO (14:19)
[2019-05-22 19:50] VITALS: BP 94/65
[2019-05-22] MEDS: DIVALPROEX 500 MG TAB.ER.24H PO SCH (20:32)
[2019-05-22] MEDS: ATORVASTATIN 40 MG TABLET PO SCH (20:32)
[2019-05-22] MEDS: TEMAZEPAM 15 MG CAPSULE PO PRN (22:00)
[2019-05-22] MEDS: ACETAMINOPHEN 325 MG TABLET PO PRN (22:00)
[2019-05-23] MEDS: PANTOPRAZOLE 40MG TABLET PO SCH (06:00)
[2019-05-23] MEDS: LEVOTHYROXINE 50 MCG TABLET PO SCH (06:20)
[2019-05-23 07:30] VITALS: BP 116/83
[2019-05-23] MEDS: BENZTROPINE 1 MG TABLET PO SCH (08:52)
[2019-05-23] MEDS: CARBAMAZEPINE 200 MG TABLET PO SCH (08:52)
[2019-05-23] MEDS: LORazepam 0.5MG TABLET PO SCH (08:52)
[2019-05-23] MEDS: OLANZAPINE ODT 10MG PO SCH (08:52)
== END 2019-05-23 10:15 | DRG 884 ==
LOC: 3E 16:39
PROVIDERS: ADMIT Psychiatry & Neurology Psychosomatic Medicine; ATTEND Psychiatry & Neurology Psychosomatic Medicine
DX: F01.51 Vascular dementia, unspecified severity, with behavioral disturbance (principal); R45.851 Suicidal ideations; F25.0 Schizoaffective disorder, bipolar type; D64.9 Anemia, unspecified; D72.829 Elevated white blood cell count, unspecified; E78.5 Hyperlipidemia, unspecified; E89.0 Postprocedural hypothyroidism; F41.1 Generalized anxiety disorder; G47.00 Insomnia, unspecified; G47.30 Sleep apnea, unspecified; I12.9 Hypertensive chronic kidney disease with stage 1 through stage 4 chronic kidney disease, or unspecified chronic kidney disease; K59.00 Constipation, unspecified; K21.9 Gastro-esophageal reflux disease without esophagitis; N18.2 Chronic kidney disease, stage 2 (mild); Z79.899 Other long term (current) drug therapy; Z88.0 Allergy status to penicillin; Z88.8 Allergy status to other drugs, medicaments and biological substances; Z88.5 Allergy status to narcotic agent; Z85.850 Personal history of malignant neoplasm of thyroid; Z91.013 Allergy to seafood
CPT/HCPCS: 36415; 71045; 80048; 80061; 81001; 82607; 84439; 84443; 85025; 86480; 87077; 87086; 87186; 93005; 92523-GN; J2060

== ENCOUNTER 2020-11-26 22:17 | Inpatient (IN) | payer MEDICARE ==
[~2020-11-26] VITALS: Ht 154.9 cm; Wt 54.2 kg
[~2020-11-26 22:17] MED LIST changes: +ACET325T26 PO; +ATOR40TA78 PO; +CALC200T24 PO; +CARB200T3 PO; +CARB200T4 PO; +CARB400T PO; +CETI10TA18 PO; +DIVA125C2 PO; +DOCU100C33 PO; +HEPA50002 SQ; +LEVO100T PO; +LEVO125C4 PO; +LIDO700A20 TD; +Lidoderm Remove Patch XX; +MELA5TAB14 PO; +METH-640 PO; -METH750T2 PO; +OLAN10TA5 PO; +OLAN10TA7 PO; +OLAN5TAB5 PO; -OMEP40CA42 PO; +OMEP40CA8 PO; -OXYC5TAB3 PO; +OXYC5TAB98 PO; +PALI156D IM; -PANT20TA3 PO; +PANT20TA4 PO; -PANT40TA5 PO; +PANT40TA6 PO; +POLY17PO5 PO; +TEMA7.5C PO
--- NOTE | 2020-11-26 22:20 | NUR ---
[facility] EMS REPORTS PATIENT WAS COMPLAINING OF CHEST PAIN, VOMITING AND BACK PAIN. PATIENT HAS A HISTORY OF DEMENTIA. INTIAL ROOM AIR SAT WAS 92%. PATIENT STATES SHE USES A BIPAP AT NIGHT TO SLEEP.
[2020-11-26] MEDS ORDERED: ONDANSETRON 2MG/ML, 2ML IVPush ONE (22:30)
[2020-11-26] MEDS ORDERED: SODIUM CHLORIDE 0.9% 1,000ML IVBOLUS ONE (22:30)
[2020-11-26] MEDS ORDERED: MAALOX/HYOSCYAMINE/LIDOCAINE 45 ML BTL PO ONE (22:30)
[2020-11-26] MEDS ORDERED: ONDANSETRON 2MG/ML, 2ML ONE (22:54)
[2020-11-26] MEDS ORDERED: PLEASE ENTER HEIGHT AND WEIGHT MC SCH (23:00)
[2020-11-26 23:19] LABS: BASOPHILS % (AUTO) 0 % (0-1); EOSINOPHILS % (AUTO) 0 % (1-7); LYMPHOCYTES % (AUTO) 5 % (22-44); MEAN CORPUSCULAR HEMOGLOBIN 31.4 pg (27.0-34.8); MEAN PLATELET VOLUME 8.1 fL (7.4-10.4); MONOCYTES % (AUTO) 8 % (2-9); NEUTROPHILS % (AUTO) 87 % (42-75); PLATELET COUNT 226 x10^3/uL (130-400); RED BLOOD COUNT 3.91 x10^6/uL (3.82-5.3); RED CELL DISTRIBUTION WIDTH 15.7 % (9.6-15.2)
[2020-11-26 23:20] LABS: ALANINE AMINOTRANSFERASE 15 U/L (12-78); ALBUMIN 2.5 g/dL (3.4-5.0); ANION GAP 7 mmol/L (5-15); CALCIUM 9.2 mg/dL (8.5-10.1); CHLORIDE 102 mmol/L (98-107); CREATININE 1.01 mg/dL (0.55-1.02)
[2020-11-26 23:25] LABS: ALKALINE PHOSPHATASE 77 U/L (45-117); BILIRUBIN,TOTAL 0.3 mg/dL (0.2-1.0); TOTAL PROTEIN 7.1 g/dL (6.4-8.2); TROPONIN I < 0.015 ng/mL (0.000-0.045)
--- NOTE | 2020-11-26 23:26 | NUR ---
PATIENT O2 SATS DOWN TO 82%, PLACED ON 2L VIA NC AND O2 SATS INCREASED TO 95%
[2020-11-26] MEDS ORDERED: OMNIPAQUE 350 MG/ML, 100ML BOTTLE ONE (23:50)
[2020-11-27] MEDS ORDERED: MAALOX/HYOSCYAMINE/LIDOCAINE 45 ML BTL ONE (00:03)
--- NOTE | 2020-11-27 00:05 | NUR ---
ASSISTED PATIENT TO RESTROOM, UA COLLECTED, PATIENT AMBULATED WITH STEADY GAIT, ASSISTED BACK TO [facility], CONNECTED BACK TO MONITOR. PATIENT STATES "MY TUMMY FEELS BETTER"
[2020-11-27 00:35] LABS: MICROSCOPIC AUTO
[2020-11-27] MEDS ORDERED: CEFTRIAXONE 1,000 MG in DEXTROSE 5% 50 ML IVPB ONE (01:00)
[2020-11-27] MEDS ORDERED: SODIUM CHLORIDE 0.9% 1,000ML IVBOLUS ONE ×2 (01:00→06:00)
[2020-11-27] MEDS ORDERED: AZITHROMYCIN 500 MG in SODIUM CHLORIDE 0.9% 250 ML IV ONE (01:00)
--- NOTE | 2020-11-27 01:25 | NUR ---
PATIENT RESTING ON TIFFANIE GARCIA AT THIS TIME, PATIENT STATES "I FEEL A LOT BETTER" WHEN ASKED ABOUT ANY NAUSEA. NO NEEDS AT THIS TIME. BRYSON
--- NOTE | 2020-11-27 01:47 | NUR ---
Pt to be admitted to MEDICAL, room 367. Report called to AYLIN.
[2020-11-27 02:14] VITALS: BP 109/69
[2020-11-27] MEDS ORDERED: PROMETHAZINE 25 MG/ML, 1ML IM PRN (02:30)
[2020-11-27] MEDS ORDERED: LABETALOL 5MG/ML, 20ML IVPush PRN (02:30)
[2020-11-27] MEDS ORDERED: CEFTRIAXONE 1,000 MG in DEXTROSE 5% 50 ML IVPB SCH (02:30)
[2020-11-27] MEDS ORDERED: LEVOTHYROXINE 125 MCG TABLET PO SCH ×2 (02:30→06:00)
[2020-11-27] MEDS ORDERED: MELATONIN 5 MG TABLET PO PRN (02:30)
[2020-11-27] MEDS ORDERED: GABAPENTIN 300 MG CAPSULE PO PRN (02:30)
[2020-11-27] MEDS ORDERED: ACETAMINOPHEN 325 MG TABLET PO PRN (02:30)
[2020-11-27] MEDS: ENOXAPARIN 40 MG/0.4 ML SQ SCH (02:58)
[2020-11-27] MEDS: DOXYCYCLINE 100MG TABLET PO SCH ×2 (08:48→20:07)
[2020-11-27 09:24] VITALS: BP 115/72
[2020-11-27 13:24] VITALS: BP 110/68
[2020-11-27] MEDS: PANTOPRAZOLE 20MG TABLET PO SCH (16:32)
[2020-11-27 19:14] VITALS: BP 126/74
[2020-11-27] MEDS ORDERED: DIVALPROEX 500 MG TAB.ER.24H PO SCH (21:00)
[2020-11-28 00:59] VITALS: BP 107/66
[2020-11-28] MEDS: ENOXAPARIN 40 MG/0.4 ML SQ SCH (01:29)
[2020-11-28] MEDS: PANTOPRAZOLE 20MG TABLET PO SCH (05:38)
[2020-11-28] MEDS ORDERED: LEVOTHYROXINE 125 MCG TABLET PO SCH (06:00)
[2020-11-28 08:01] VITALS: BP 97/66
[2020-11-28] MEDS ORDERED: BENZTROPINE 1 MG TABLET PO SCH (09:00)
[2020-11-28] MEDS ORDERED: OLANZAPINE ODT 10MG PO SCH (09:00)
[2020-11-28] MEDS: DOXYCYCLINE 100MG TABLET PO SCH (09:02)
[2020-11-28] MEDS ORDERED: PANT40TA6 PO (09:42)
== END 2020-11-28 13:06 | disposition home or self-care (01) | DRG 193 ==
LOC: ED 22:26 → EDIP 11-27 01:17 → 3N 11-27 02:13
PROVIDERS: ADMIT Family Medicine; ATTEND Hospitalist
PROC: 5A09357 Assistance with Respiratory Ventilation, Less than 24 Consecutive Hours, Continuous Positive Airway Pressure (ICD-10-PCS; principal; 2020-11-28)
DX: J18.9 Pneumonia, unspecified organism (principal); J96.01 Acute respiratory failure with hypoxia; K80.20 Calculus of gallbladder without cholecystitis without obstruction; F25.9 Schizoaffective disorder, unspecified; F31.9 Bipolar disorder, unspecified; E11.9 Type 2 diabetes mellitus without complications; E78.00 Pure hypercholesterolemia, unspecified; F02.80 Dementia in other diseases classified elsewhere, unspecified severity, without behavioral disturbance, psychotic disturbance, mood disturbance, and anxiety; G20 Parkinson's disease; G30.9 Alzheimer's disease, unspecified; E03.9 Hypothyroidism, unspecified; G47.33 Obstructive sleep apnea (adult) (pediatric); G89.29 Other chronic pain; K21.9 Gastro-esophageal reflux disease without esophagitis; K22.4 Dyskinesia of esophagus; Z20.822 Contact with and (suspected) exposure to COVID-19; Z85.850 Personal history of malignant neoplasm of thyroid; Z88.1 Allergy status to other antibiotic agents; Z91.013 Allergy to seafood; Z90.49 Acquired absence of other specified parts of digestive tract
CPT/HCPCS: 36415; 71045; 74177; 80053; 81001; 83605; 83690; 83880; 84145; 84484; 85025; 85379; 87040; 99285; G0378; J0456; J0696; J1650; J2405; Q9967; U0005; J7030; J7050; U0003